=== PATIENT | female | born 1945 | race Caucasian/White ===

== ENCOUNTER 2021-05-17 01:52 | Emergency (ER) | payer MEDICARE, SELFPAY ==
--- NOTE | ~2021-05-17 | CT_ITS ---
EXAMINATION: NONCONTRAST HEAD CT NONCONTRAST CERVICAL SPINE CT INDICATION INFORMATION: Fall COMPARISON: None TECHNIQUE: Separate noncontrast CT examinations of the head and cervical spine were performed. Coronal and sagittal images were created for each examination at the technologist workstation. This CT examination was performed using dose optimization techniques as appropriate, variously including the following: *Automated exposure control *Adjustment of mA and/or kV according to patient size (this includes techniques or standardized protocols for targeted exams where dose is matched to indication/reason for exam; i.e. extremities or head) *Use of iterative reconstruction technique DLP: 1164 mGy-cm FINDINGS: Head: There is no evidence of acute intracranial hemorrhage or territorial infarction. No abnormal mass effect or midline shift is seen. Fallon to white matter differentiation is well preserved. No extra-axial fluid collections are identified. No hydrocephalus. Proportional prominence of the ventricles and sulcal spaces is consistent with mild volume loss. Patchy periventricular and deep white matter hypoattenuation is consistent with mild small vessel ischemic changes. Small left frontal subgaleal hematoma. No calvarial fracture. The mastoid air cells and visualized portions of the paranasal sinuses are well aerated. Cervical spine: There is a fracture involving the left anterior arch of C2 extending through the vertebral foramen. No significant displacement. Fracture involves the articulation with C1. There is anatomic alignment of the vertebral bodies and posterior elements. The atlantoaxial and atlantooccipital articulations are intact. Vertebral body heights are maintained. There is multilevel intervertebral disc space narrowing with endplate osteophyte formation and facet arthropathy. Fusion hardware in place posteriorly and anteriorly at C6-C7. No prevertebral soft tissue swelling. Visualized portions of the lung apices are unremarkable. The thyroid gland is unremarkable. CT/CT cervical spine wo con IMPRESSION: 1. No acute intracranial finding. 2. Nondisplaced fracture of the left aspect of C2 vertebral body extending to the vertebral foramen and involving the articulation with C1. This critical result was discussed with Melany Galvan MD by telephone at 05/17/2021 3:22 AM and it was ascertained that the content and urgency of the report was understood at the time of direct communication.
[2021-05-17 02:00] VITALS: BP 149/66; PULSE 68; RESP 16; TEMP 36.6; O2SAT 98; BMI 30.1
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
[2021-05-17] MEDS: Lidocaine HCl 2%/Epi 1:100,000 20 ML VIAL INFILTRATI (03:08)
[2021-05-17 03:09] VITALS: BP 151/70; PULSE 64; RESP 16; O2SAT 97
[2021-05-17] MEDS: Diphth,Pertus(ACell),Tet Adult 0.5 ML SYRINGE IM (03:17)
[2021-05-17] MEDS: Ondansetron ODT 4 MG TAB.RAPDIS TRANSLINGU (03:17)
[2021-05-17 03:22] VITALS: BP 169/61; PULSE 69; RESP 16; O2SAT 98
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
[2021-05-17 03:41] VITALS: BP 145/79; PULSE 69; RESP 16; O2SAT 99
[2021-05-17 03:41] LABS: Hematocrit 37.7 % (37.0-47.0); Hemoglobin 12.6 g/dl (12.0-16.0); Mean Corpuscular HGB Conc 33.4 g/dl (31.0-35.0); Mean Corpuscular Hemoglobin 31.4 pg (27.0-33.0); Mean Platelet Volume 10.1 fL (9.4-12.3); Platelet Count 190 X10*3/uL (160-400); Red Blood Count 4.01 X10*6/uL (4.20-5.50); Red Cell Distribution Width 13.1 % (11.0-16.0); White Blood Count 7.4 X10*3/uL (4.8-10.8)
[2021-05-17 03:51] LABS: COVID-19 Test Negative (Negative)
[2021-05-17 03:55] LABS: Anion Gap 10 (12-20); Blood Urea Nitrogen 18 mg/dL (9-16); Calcium 9.8 mg/dL (8.4-10.2); Carbon Dioxide 27 mmol/L (22-29); Chloride 106 mmol/L (96-108); Creatinine Clr Calc Pharmacy 63.2; Estimated Glomerular Filt Rate > 60; Glucose Random 121 mg/dL (60-115); Potassium 4.2 mmol/L (3.3-5.1); Sodium 139 mmol/L (135-145)
--- NOTE | 2021-05-17 04:37 | PC.NURSE ---
attempted to call the [facility] ed line to give a nurse to nurse report and placed on hold for extended lenght of time.
--- NOTE | 2021-05-17 04:51 | PC.NURSE ---
nurse to nurse report given to ginger jefferson at [facility].
[2021-05-17 05:02] VITALS: BP 169/76; PULSE 76; RESP 16; O2SAT 98
== END 2021-05-17 05:25 | disposition short-term general hospital (02) ==
PROVIDERS: Emergency Provider Emergency Medicine; PCP Nurse Practitioner Pediatrics
DX: S12.101A Unspecified nondisplaced fracture of second cervical vertebra, initial encounter for closed fracture (principal); S01.01XA Laceration without foreign body of scalp, initial encounter; S00.83XA Contusion of other part of head, initial encounter; I10 Essential (primary) hypertension; G47.00 Insomnia, unspecified; W06.XXXA Fall from bed, initial encounter; Y93.9 Activity, unspecified; Y92.003 Bedroom of unspecified non-institutional (private) residence as the place of occurrence of the external cause; Y99.9 Unspecified external cause status; Z20.822 Contact with and (suspected) exposure to COVID-19
CPT/HCPCS: 12001; 36415; 70450; 72125; 80048; 85027; 87635; 90471; 90715; 99285; 99291

== ENCOUNTER 2024-01-13 13:12 | Emergency (ER) | payer OTHER, SELFPAY ==
--- NOTE | ~2024-01-13 | XR_ITS ---
EXAMINATION: XR HAND/WRIST, RIGHT CLINICAL INFORMATION: Wrist pain. COMPARISON: None TECHNIQUE: PA, lateral, and oblique views of the right hand and wrist. FINDINGS: There is no acute abnormality. No fracture, there is no dislocation. 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 Diffuse joint narrowing of the carpal bones with chondrocalcinosis of the carpal bones and the radiocarpal joint. There is widening between the scaphoid and lunate with proximal migration of the capitate, SLAC deformity of the wrist. The proximal pole and navicular bone is deformed with a narrow linear appearance of the proximal pole. This is chronic. There is narrowing of the radiocarpal joint. Severe joint narrowing subchondral osteosclerosis and bone spurs of the first metacarpal carpal joint. PIP joints are normal. There is calcifications of the radial margin of the third metacarpal phalangeal joint without bone erosion. The metacarpal carpal joints of the second through fifth digits are normal. XR/XR hand wrist RT IMPRESSION: 1. No acute abnormality. 2. Severe degenerative arthrosis of the wrist. 3. Chondrocalcinosis of the carpal bones and the radiocarpal joint and the third metacarpal phalangeal joint. 4. SLAC deformity of the wrist.
--- NOTE | ~2024-01-13 | CT_ITS ---
EXAMINATION: CT HEAD WITHOUT CONTRAST CT CERVICAL SPINE WITHOUT CONTRAST CLINICAL INFORMATION: Headache. Neck pain. COMPARISON: CT head and CT cervical spine May 17, 2021. TECHNIQUE: Imaging was performed from the skull base to vertex without intravenous administration of contrast. In addition, helical noncontrast CT imaging was acquired through the cervical spine and source images were reviewed along with axial reconstructions and sagittal and coronal MPRs. [This CT examination was performed using dose optimization techniques as appropriate, variously including the following: *Automated exposure control *Adjustment of mA and/or kV according to patient size (this includes techniques or standardized protocols for targeted exams where dose is matched to indication/reason for exam; i.e. extremities or head) *Use of iterative reconstruction technique] DLP: 1180 mGy-cm FINDINGS: HEAD: No intracranial mass, hemorrhage, or midline shift is visualized. There is generalized global volume loss. There is moderate prominence of the ventricles and the sulci . There is mild hypodensity of the periventricular white matter due to chronic small vessel ischemic disease. There are vascular calcifications of the internal carotid arteries bilaterally. No extra-axial collections are identified. The paranasal sinuses and mastoid air cells are well aerated. CERVICAL SPINE: Status post fusion with transpedicular screws as well as the anterior fusion hardware at the C6-C7 disc level. There is no evidence of acute cervical spine fracture. Vertebral bodies remain normal in height. Cervical vertebrae have normal alignment. There is multilevel degenerative spondylosis of the cervical spine with disc height narrowing and endplate spurs and facet joint arthrosis No pre- or paravertebral soft tissue abnormality is identified. Limited assessment of the lung apices is unremarkable. CT/CT cervical spine wo IV con IMPRESSION: 1. No acute intracranial pathology. 2. No CT evidence of acute cervical spine fracture or traumatic subluxation
--- NOTE | ~2024-01-13 | XR_ITS ---
EXAMINATION: XR HAND/WRIST, LEFT CLINICAL INFORMATION: Left wrist pain. COMPARISON: None TECHNIQUE: Four views of the left hand and wrist. FINDINGS: There is no acute abnormality. No fracture, there is no dislocation. 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 Diffuse joint narrowing of the carpal bones with chondrocalcinosis of the carpal bones and the radiocarpal joint. There is narrowing of the radiocarpal joint. Severe joint narrowing subchondral sclerosis and bone spurs of the first metacarpal carpal joint. The IP joint of the thumb is held in extreme extension. The IP joints are otherwise normal. Metacarpal phalangeal joints are normal. Metacarpal carpal joints of the second through fifth digits are normal. XR/XR hand wrist LT IMPRESSION: 1. No acute abnormality. 2. 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
--- NOTE | ~2024-01-13 | CT_ITS ---
EXAMINATION: CT CHEST, ABDOMEN AND PELVIS withCONTRAST CLINICAL INFORMATION: Trauma. Chest pain Abdomen pain. COMPARISON: None. TECHNIQUE: Multidetector volumetric CT imaging of the chest, abdomen and pelvis was obtained . Coronal, Sagittal reformatted images preformed at the CT scanner. [This CT examination was performed using dose optimization techniques as appropriate, variously including the following: *Automated exposure control *Adjustment of mA and/or kV according to patient size (this includes techniques or standardized protocols for targeted exams where dose is matched to indication/reason for exam; i.e. extremities or head) *Use of iterative reconstruction technique] DLP: 1102 mGy-cm. FINDINGS: CT CHEST: Lungs: Diffuse mild subpleural reticular changes involving all lobes of the lung. Mild bronchiectasis at the lung bases. No acute airspace disease. No suspicious lung nodule. Small intra-pleural lymph node at the minor fissure. Mediastinum: No mass or significant lymphadenopathy. Heart size is normal. No pericardial effusion. There are vascular calcifications of the aorta. No aneurysm of aorta. Coronary arteries: Small volume of coronary calcification. Pleura: There is no pleural effusion. No pleural mass or thickening. Axilla: No lymphadenopathy. CT ABDOMEN AND PELVIS: Liver, Gallbladder and Biliary Tree: The liver is normal in size, shape, and attenuation. No focal hepatic lesion or biliary ductal dilatation is present. The gallbladder is unremarkable with no evidence of radiopaque gallstones, gallbladder wall thickening, or obvious pericholecystic inflammatory changes. Pancreas: No acute change of the pancreas. No mass. No pancreatic duct dilatation. Spleen: Spleen normal in size and contour. No focal lesion. Adrenal Glands: Adrenal glands are normal in size. No focal mass. Kidneys and Ureters: The kidneys are normal in size, shape, and attenuation. No hydronephrosis, hydroureter, or calculi seen. No perinephric stranding. Bladder: Unremarkable. Gastrointestinal Tract: There are scattered diverticula of the colon. There is no diverticulitis. There is no bowel wall thickening /edema. There is no bowel obstruction. There is a moderate volume of stool in the colon. The appendix is normal . The small bowel loops are unremarkable. The stomach is normal. There is no hiatal hernia. Mesentery: No focal inflammation. No free fluid. No free air. Abdominal Wall: No significant hernia is appreciated. Lymph Nodes: Normal. Vascular: Vascular calcifications of aorta and iliac arteries. There is no aneurysm. Pelvic Viscera: Status post hysterectomy. Osseous Structures: No acute osseous abnormality. Multilevel degenerative spondylosis spine. Grade 1 anterolisthesis of L4 and L5 due to facet joint disease. Orthopedic hardware at lower cervical spine, anterior fusion at C6-C7 partially imaged. CT/CT abdomen pelvis w IV con IMPRESSION: 1. No acute abnormality the chest, abdomen or pelvis. 2. Mild interstitial lung disease. 3. Diverticulosis of colon. No acute abnormality of the bowel. 4. Status post hysterectomy.
[2024-01-13 13:30] VITALS: BP 150/84; BP 180/97; PULSE 61; PULSE 88; RESP 18; TEMP 36.7; O2SAT 96; BMI 28.3
[2024-01-13 13:37] VITALS: BP 180/97; PULSE 88; RESP 18; TEMP 36.7; O2SAT 96
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
[2024-01-13] MEDS: iohexoL 350 MG/ML 75 ML INFUS..BTL 85 ML IV (14:19)
[2024-01-13 15:12] VITALS: BP 180/97; PULSE 88; RESP 18; TEMP 36.7; O2SAT 96
[2024-01-13] MEDS: Diphth,Pertus(ACell),Tet Adult 0.5 ML SYRINGE IM (15:14)
[2024-01-13] MEDS: fentaNYL citrate/PF 100 MCG/2 ML VIAL 50 MCG IVPUSH (15:14)
[2024-01-13 16:11] LABS: MANUAL DIFF FLAG NO
[2024-01-13 16:14] LABS: Basophils Absolute Auto 0.1 X10*3/uL (0.0-0.2); Basophils Percent Auto 0.5 % (0-2); Eosinophils Absolute Auto 0.1 X10*3/uL (0.0-0.4); Eosinophils Percent Auto 0.7 % (0-4); Hematocrit 42.3 % (37.0-47.0); Hemoglobin 14.2 g/dl (12.0-16.0); Imm Gran Abs Auto 0.09 X10*3/uL (0.00-0.03); Imm Gran Pct Auto 0.6 % (0.0-0.4); Lymphocytes Absolute Auto 1.7 X10*3/uL (1.2-4.9); Lymphocytes Percent Auto 10.6 % (20-40); Mean Corpuscular HGB Conc 33.6 g/dl (31.0-35.0); Mean Corpuscular Hemoglobin 31.8 pg (27.0-33.0); Mean Corpuscular Volume 94.6 fL (80.0-98.0); Mean Platelet Volume 9.9 fL (9.4-12.3); Neutrophils Absolute Auto 13.3 x10*3/uL (2.0-8.3); Neutrophils Percent Auto 81.6 % (45-73); Platelet Count 206 X10*3/uL (160-400); Red Blood Count 4.47 X10*6/uL (4.20-5.50); Red Cell Distribution Width 12.9 % (11.0-16.0); White Blood Count 16.3 X10*3/uL (4.8-10.8)
[2024-01-13 16:20] LABS: Prothrombin Time 11.6 SEC (11.1-13.3)
[2024-01-13 16:35] LABS: Alanine Aminotransferase 18 U/L (0-31); Albumin Level 4.1 g/dL (3.5-5.0); Alkaline Phosphatase 53 U/L (39-117); Anion Gap 13 (12-20); Aspartate Amino Transferase 21 U/L (5-31); Bilirubin Total 1.1 mg/dL (0.0-1.0); Blood Urea Nitrogen 13 mg/dL (9-16); Calcium 10.7 mg/dL (8.4-10.2); Carbon Dioxide 24 mmol/L (22-29); Chloride 106 mmol/L (96-108); Creatinine Clr Calc Pharmacy 60.1; Estimated Glomerular Filt Rate > 60; Glucose Random 122 mg/dL (60-115); Magnesium 2.1 mg/dL (1.6-2.6); Potassium 3.7 mmol/L (3.3-5.1); Sodium 139 mmol/L (135-145); Total Protein 7.5 g/dL (6.5-8.0)
[2024-01-13 16:44] LABS: Troponin-I High Sensitivity < 2.7 ng/L (<3.5-17.0)
[2024-01-13 17:46] VITALS: BP 127/55; PULSE 89; RESP 18; O2SAT 94
[2024-01-13 17:58] VITALS: BP 127/55; PULSE 89; RESP 18; TEMP 36.7; O2SAT 94
== END 2024-01-13 17:59 | disposition home or self-care (01) ==
PROVIDERS: Physician Assistant; Emergency Provider Emergency Medicine; PCP Internal Medicine
DX: S06.0X0A Concussion without loss of consciousness, initial encounter (principal); S60.211A Contusion of right wrist, initial encounter; S13.4XXA Sprain of ligaments of cervical spine, initial encounter; S60.811A Abrasion of right wrist, initial encounter; S20.219A Contusion of unspecified front wall of thorax, initial encounter; M25.531 Pain in right wrist; K57.30 Diverticulosis of large intestine without perforation or abscess without bleeding; H11.31 Conjunctival hemorrhage, right eye; R51.9 Headache, unspecified; M54.2 Cervicalgia; R94.31 Abnormal electrocardiogram [ECG] [EKG]; V44.5XXA Car driver injured in collision with heavy transport vehicle or bus in traffic accident, initial encounter; Y93.9 Activity, unspecified; Y92.410 Unspecified street and highway as the place of occurrence of the external cause; Y99.8 Other external cause status; Z79.899 Other long term (current) drug therapy; Z23 Encounter for immunization
CPT/HCPCS: 29125; 36415; 70450; 71260; 72125; 73110; 73130; 74177; 80053; 83735; 84484; 85025; 85610; 90471; 90715; 93005; 96374; 99284; 99285; J3010; Q9967

== ENCOUNTER → 2024-01-13 13:54 | Outpatient (BNV) | payer MEDICARE, SELFPAY | PROVIDERS: Emergency Provider Emergency Medicine; PCP Internal Medicine; Visit Provider Internal Medicine Cardiovascular Disease | DX: R94.31 Abnormal electrocardiogram [ECG] [EKG] (principal) | CPT/HCPCS: 93010 ==

== ENCOUNTER 2024-08-21 16:14 | Emergency (ER) | payer MEDICARE, SELFPAY ==
--- NOTE | ~2024-08-21 | CT_ITS ---
CLINICAL HISTORY: trauma CT head without contrast Comparison: CT/SR - CT HEAD/BRAIN WO IV CON - 01/13/24 14:00 EDT Findings: Moderate cerebral atrophy and compensatory ventriculomegaly. No intracranial hemorrhage, midline shift or mass effect. There is no sinus or mastoid fluid. The orbits are unremarkable. Posterior right vertex scalp swelling. There is no acute fracture. Degenerative changes of the temporomandibular joints. IMPRESSION: 1. No acute intracranial findings. This document has been electronically signed by: Terell Zavala MD on 08/21/2024 18:31:11
--- NOTE | ~2024-08-21 | CT_ITS ---
CLINICAL HISTORY: trauma CT cervical spine without contrast Comparison: CT/TX/SR - CT CERVICAL SPINE WO IV CON - 01/13/24 14:00 EDT Findings: Vertebral alignment is within normal limits. Multilevel degenerative change of the cervical spine. No acute fracture deformity of the cervical spine. There has been a posterior fusion with transpedicular screws at C6-7. Note, both of the bilateral C7 transpedicular screws traverses the facets and protrudes into the C7-T1 neural foramina. There has been an anterior interbody fusion at C6-7 as well. No evidence of hardware failure or loosening. There has been previous laminectomies at C5 and C6. No acute findings on limited view of the intracranial contents. Soft tissues of the neck are normal. No apical pneumothorax. IMPRESSION: No acute findings. This document has been electronically signed by: Terell Zavala MD on 08/21/2024 18:46:32
--- NOTE | ~2024-08-21 | CT_ITS ---
CLINICAL HISTORY: trauma CT lumbar spine without contrast Comparison: None Findings: There is 3 mm of retrolisthesis of L1 on L2 and 2 mm of retrolisthesis of L2 on L3. There is 7 mm of anterolisthesis of L4 on L5. Findings are thought to be secondary to significant degenerative change. Multilevel degenerative changes of the lumbar spine. No acute fracture deformity. Wall calcifications of the aorta. IMPRESSION: No acute findings. This document has been electronically signed by: Terell Zavala MD on 08/21/2024 18:51:09
--- NOTE | 2024-08-21 16:26 | ED.FALL ---
HPI - Fall General Chief Complaint: Fall Stated Complaint: FALL +HS, HEMATOMA PER EMS Time Seen by Provider: 08/21/24 16:26 Source: patient Limitations: no limitations History of Present Illness ED Provider: Rosa Roper PA-C HPI Narrative: 79-year-old female with a history of depression, hypertension and morbid obesity, presents after fall. Patient states she was walking to get her mail, there was ice around her mailbox, she subsequently slipped and fell backwards landing on her back striking her head. There was no loss consciousness, the patient was not on a blood thinner. The patient was not able to get up off the ground, EMS was called to the scene. Patient complains of pain over a bump over posterior scalp, diffuse neck pain and left lower back pain since the fall. Denies weakness of lower extremities, paresthesia, radiation pain down the leg, bowel incontinence or urinary retention. Denies headache, dizziness, nausea vomiting. Denies radiation of pain from the neck to the upper extremities, weakness of upper extremities or paresthesia. Related Data Previous Rx's ?Medication ?Instructions ?Recorded methocarbamol 750 mg tablet 750 mg PO Q8H PRN pain, moderate 08/21/24 #10 tabs Allergies Allergy/AdvReac Type Severity Reaction Status Date / Time codeine [CODEINE] Allergy Unknown UNKNOWN Verified 08/21/24 16:38 diphenhydramine Allergy Unknown NAUSEA Verified 08/21/24 16:38 [From BENADRYL] Review of Systems Review of Systems: Yes all other systems are reviewed and are negative Constitutional: Constitutional: Denies fatigue, Denies fever(s) and Denies headache(s) ENT: Denies dizziness, Denies headache(s) and Reports neck pain Cardiovascular: Cardiovascular: Denies chest pain and Denies dyspnea Respiratory: Respiratory: Denies cough and Denies dyspnea Gastrointestinal: Gastrointestinal: Denies abdominal pain, Denies nausea and Denies vomiting Musculoskeletal: Musculoskeletal: Reports back pain, Reports myalgias, Reports arthralgias, Denies muscle weakness, Reports neck pain, Denies numbness and Denies tingling Neurologic: Denies dizziness, Denies headache(s), Denies numbness, Denies tingling and Denies paresthesias Endocrine: Endocrine: Denies fatigue PMFSH Past Medical History Attestation statement: The following information was validated with the patient. Medical History (Updated 08/21/24 @ 17:15 by TARUN Hi) Insomnia Depression Hypertension Surgical History (Updated 05/17/21 @ 04:19 by Sarahi Galvan DO) History of carpal tunnel surgery H/O neck surgery Social History Social History (Updated 05/17/21 @ 02:59 by Sarahi Galvan DO) Patient Tobacco Use Status: Never used Tobacco Smoked in Last 30 Days: No Use of substances other than those prescribed or required for medical reasons: No Advance Directives: No Advance Directives Information Provided: Yes Do you have a plan to hurt others: No Plan Physical Exam Vital Signs: Vital Signs: Last Vital Signs Temp 98.1 F 08/21/24 16:37 Pulse 66 08/21/24 16:37 Resp 20 08/21/24 16:37 BP 131/63 08/21/24 16:37 Pulse Ox 97 08/21/24 16:37 O2 Del Method Room Air 08/21/24 16:37 BMI result Body Mass Index 29.4 Const: Other: Alert, I can palpate a large contusion right posterior parietal region Orientation/consciousness: patient oriented x3 Neck: Other: Diffuse tenderness with palpation of entire neck, no focal regions, full range of motion of the neck Resp: Effort & Inspection: normal respiratory effort Cardio: Other: Normal peripheral perfusion Skin: Other: Warm dry no rash Neuro: Other: Antalgic gait General: patient oriented x3, gait normal, no focal motor deficits and CN's II-XI intact bilaterally Psych: Other: Cooperative Medications Administered Discontinued Medications Generic Name Dose Route Start Last Admin Trade Name Freq PRN Reason Stop Dose Admin Ibuprofen 600 mg 08/21/24 16:33 08/21/24 17:38 Ibuprofen 600 Mg Tablet PO 08/21/24 16:34 600 mg ONCE ONE Administration Methocarbamol 750 mg 08/21/24 16:33 08/21/24 17:38 Methocarbamol 750 Mg Tablet PO 08/21/24 16:34 750 mg ONCE ONE Administration Medical Decision Making Medical Decision Making MDM Narrative: 79-year-old female with a history of depression, hypertension and morbid obesity, presents after fall. Patient states she was walking to get her mail, there was ice around her mailbox, she subsequently slipped and fell backwards landing on her back striking her head. There was no loss consciousness, the patient was not on a blood thinner. The patient was not able to get up off the ground, EMS was called to the scene. Patient complains of pain over a bump over posterior scalp, diffuse neck pain and left lower back pain since the fall. Denies weakness of lower extremities, paresthesia, radiation pain down the leg, bowel incontinence or urinary retention. Denies headache, dizziness, nausea vomiting. Denies radiation of pain from the neck to the upper extremities, weakness of upper extremities or paresthesia. Problem: Age and obesity History: Per patient I have considered the following differential diagnoses: Intracranial hemorrhage, cervical spine injury, cervical radiculopathy, contusion, concussion, lumbar strain, lumbar radiculopathy, compression fracture, cauda equina Plan: We will be scanning the patient's head and neck and back. I have low suspicion for intracranial hemorrhage given the patient is not altered she has no neuro deficits she is not actively vomiting. Her pain is not focal to midline cervical spine, it is diffuse over the neck, it is likely musculoskeletal strain. She is not having any radicular symptoms either in the cervical or lumbar region. This is likely just lumbar strain, she has no red flag signs symptoms concerning for cord compression. We will give ibuprofen and a muscle relaxant I have independently reviewed the following tests: CT brain: MPRESSION: 1. No acute intracranial findings. This document has been electronically signed by: Terell Zavala MD on 08/21/2024 18:31:11 CT cervical spine: IMPRESSION: No acute findings. This document has been electronically signed by: Terell Zavala MD on 08/21/2024 18:46:32 CT lumbar spine:IMPRESSION: No acute findings. This document has been electronically signed by: Terell Zavala MD on 08/21/2024 18:51:09 Discharge Plan Discharge Clinical Impression: Contusion of scalp, Lumbar strain Patient Disposition: Home, Self-Care Instructions: Low Back Strain (ED), Scalp Contusion in Adults (ED) Additional Instructions: The CT scan of your brain cervical spine and lumbar spine were normal. You sustained a scalp contusion, this is a fancy word for bruise. You also have musculoskeletal strain of the back and neck. See home care instructions. Use [id number] ibuprofen 600 mg taken every 6 hours with food. Use the methocarbamol as needed for further pain, this is a muscle relaxant, to note this medication will cause drowsiness, do not drive or operate machinery while taking the medication. Follow up with your primary care provider as needed. Prescriptions: New methocarbamol 750 mg tablet 750 mg PO Q8H PRN (Reason: pain, moderate) Qty: 10 0RF Print Language: Ecuadorean
[2024-08-21 16:37] VITALS: BP 131/63; BP 171/88; PULSE 18; PULSE 66; RESP 20; TEMP 36.7; O2SAT 97; O2SAT 98; BMI 29.4
--- OUTSIDE RECORDS SUMMARY | 2024-08-21 16:49 | XMS_ITS | Clinical Summary ---
Author Organization [facility] Address [address] [place] [address] Care Team Providers Care Skiver Counter Name Role Phone Mignon Lowery MD Primary Care Provider [phone] Social History Tobacco Use Types Packs/Day Years Used Date Smoking Tobacco: Never Assessed Sex and Gender Information Value Date Recorded Sex Assigned at Not on file Gender Identity Not on file Sexual Orientation Not on file Plan of Treatment Health Maintenance Due Date Last Done Comments Hepatitis C Screening 1945 COVID-19 Vaccine (#1) 1945 Depression Screening 1959 Preventative Health Evaluation 1965 Shingrix-Zoster Vaccine (1 of 2) 1997 Fall Risk Assessment 2012 Osteoporosis Screening (DEXA Scan) 2012 DTap / Tdap / Td (2 - Td or Tdap) 04/14/2022 04/14/2012 RSV Adult > 60+ Yrs or (1 - 1-dose 75+ series) 2022 Influenza Vaccine (#1) 2024 8, 04/23/2017, 04/20/2015, Additional history exists Pneumococcal Vaccine Completed 03/03/2020, 04/25/20 18 Hepatitis B Vaccines Aged Out No long er eligible based on patient's age to complete this topic RSV Ped < 20 months Aged Out No longe r eligible based on patient's age to complete this topic Care Teams Skiver Counter Relationship Specialty Start Date End Date Mignon Lowery MD PCP - General Internal Medicine 08/25/19
--- OUTSIDE RECORDS SUMMARY | 2024-08-21 16:49 | XMS_ITS | Clinical Summary ---
Author Organization [facility] Address [address] [place] [address] Phone Care Team Providers Care Territory Account Manager Name Role Phone Tamra Jerry MD Primary Care Provider [phone] Allergies Active Allergy Reactions Criticality Noted Date Comments Anastrozole 10/29/2008 Counteracting antidepressants Hair loss Anti-Itch Itching 08/05/2005 Codeine 08/05/2005 GI upset Prednisone 08/05/2005 vitreous leaking Zolpidem 04/20/2015 nausea Medications cholecalciferol (VITAMIN D-3) 50 mcg (2,000 unit) capsule TAKE 1 CAPSULE BY MOUTH EVERY DAY 90 capsule 1 06/15/2024 Active mirtazapine (REMERON) 7.5 mg tablet TAKE 1 TABLET BY MOUTH EVERY DAY AT BEDTIME FOR 90 DAYS 03/13/2024 Active donepeziL (ARICEPT) 5 mg tablet TAKE 1 TABLET BY MOUTH EVERY DAY AT BEDTIME FOR 90 DAYS 03/13/2024 Active lisinopriL (PRINIVIL,ZESTR IL) 20 mg tablet Take 1 Tablet by mouth daily. 03/16/2024 Active furosemide (LASIX) 20 mg tablet Take 1 Tablet by mouth daily. 06/24/2023 Active Active Problems Problem Noted Date Diagnosed Date Microalbuminuria 04/10/2024 Hyperparathyroidism 04/07/2024 White matter abnormality on MRI of brain 024 Overview (06/16/2024): Minimal white matter changes, likely a manifestation of chronic small vessel disease. Atrophy of the bilateral temporal lobes, left greater than the right. This could be sequela from prior insult/injury, however, in the appropriate clinical setting, could suggest dementia such as Alzheimer's disease. Memory impairment 06/24/2023 Overview (06/16/2024): Mini cog from annual wellness visit in 2021: 1 out of 5. Mini cog assessment during annual wellness visit in 2022: 2/5. Dementia panel ordered. MRI of the brain ordered. Prediabetes 05/23/2022 Arthritis of left sacroiliac joint 11/22/2021 Lumbosacral strain 11/22/2021 Obesity (BMI 30-39.9) 08/11/2020 Cervical spinal stenosis 08/13/2019 Overview (06/16/2024): S/p MRI 08/2019 With cord compression. 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 Depression 08/13/2019 Overview (06/16/2024): Meds prescribed by psychiatry Multiple thyroid nodules 08/13/2019 Overview (06/16/2024): Non toxic. S/p thyroid ultrasound 08/2019 stable needs repeat annually. 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 Encounters Date Type Department Care Team Description 08/12/2024 10:30 AM EST Consult Endocrinology - [id number] [place] [address] Chandan Paul MD Hyperparathyroidism (CMS/HCC) (Primary Dx) 08/12/2024 Nurse Triage Adult Medicine [address] [phone] Tamra Jerry MD Toe Pain (Right Foot ); Walk-in from Last 3 Months Immunizations Name Administration Dates Next Due Influenza trivalent, 0.5mL ( Fluad) 65yo and older 04/02/2024,06/12/2021,04/09/2019,04/15,04/23/2017 Influenza trivalent, 0.5mL, preservative free (Fluarix; FluLaval; Fluzone) ages 6mo and older (Afluria) 3 years and older 04/20/2015,04/11/2012,04/03/2011,05/10,04/07/2009,04/27/2008 Pneumococcal conjugate 13 va lent (Prevnar 13, PCV13) 2mo and older 04/25/2018 Pneumococcal polysaccharide 23 valent (Pneumovax 23) 2yo and older 03/03/2020 Td Tetanus diptheria (Tdvax) 7yo and older 01/28/2002 Tdap Tetanus diptheria acell ular pertussis (Boostrix; Adacel) 7yo and older 01/13/2024,05/17/2021,04/14/2012 Surgical History Surgery Date Site/Laterality Comments HYSTERECTOMY 1993 FRANCISCA BSO, endometriosis and fibroids CHOLECYSTECTOMY COLONOSCOPY 09/13/08 hemorrhoids and diverticulosis; repeat in ten years TOTAL KNEE ARTHROPLASTY Bilateral NECK SURGERY BREAST BIOPSY : 2012 LT BREAST BX-BENIGN BREAST BIOPSY : 2007-DCIS SCREENING MAMMOGRAM 09/26/2023 Bilateral Medical History Medical History Date Comments Hematuria 08/05/2005 Primary localized osteoarthr osis, lower leg 08/05/2005 Essential hypertension, benign 08/05/2005 Insomnia 10/29/2008 CTS (carpal tunnel syndrome) 07/28/2009 Hypercalcemia 04/25/2018 Vitamin D deficiency 10/20/2018 Cervical spinal stenosis 08/13/2019 S/p MRI 08/2019 With cord compression. 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 Depression 08/13/2019 Meds prescribed by psychiatry Hyperparathyroidism ([facility]/HCC) 04/07/2024 Memory impairment 06/24/2023 Mini cog from annual wellness visit in 2021: 1 out of 5. Mini cog assessment during annual wellness visit in 2022: 08/12. Dementia panel ordered. MRI of the brain ordered. Multiple thyroid nodules 08/13/2019 Non tox ic. S/p thyroid ultrasound 08/2019 stable needs repeat annually. 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 Family History Medical History Relation Name Comments Breast cancer Neg Hx Social History Tobacco Use Types Packs/Day Years Used Date Smoking Tobacco: Never Smokeless Tobacco: Never Tobacco Cessation:Counseling Given: Not Answered Alcohol Use Standard Drinks/Week Comments No 0 (1 standard drink = 0.6 oz pur e alcohol) Comments Unknown Sex and Gender Information Value Date Recorded Sex Assigned at Not on file Legal Sex Female 7:53 AM EST Gender Identity Not on file Sexual Orientation Not on file Obstetrics History Last Filed Vital Signs Vital Sign Reading Time Taken Comments Blood Pressure 126/84 08/12/2024 10:20 AM EST Pulse 71 08/12/2024 10:20 AM EST Temperature 36.1 ??C (97 ??F) 08/12/2024 10:20 AM EST Respiratory Rate - - Oxygen Saturation 99% 08/12/2024 10:20 AM EST Inhaled Oxygen Concentration - - Weight 81.2 kg (179 lb) 08/12/2024 10:20 AM EST Height 160 cm (5' 3 ) 08/12/2024 10:20 AM EST Body Mass Index 31.71 08/12/2024 10:20 AM EST Plan of Treatment Upcoming Encounters Date Type Department Care Team (Late st Contact Info) Description 08/24/2024 10:30 AM EST Office Visit [facility] Medicine [address] [phone] Tamra Jerry MD [address] [place] [address] 09/30/2024 12:45 PM EDT Office Visit [address] [phone] Tamra Jerry MD [address] [place] [address] 11/13/2024 10:00 AM EDT Appointment Bone Density - Samara Morel [facility] [place] [phone] 11/18/2024 11:20 AM EDT Office Visit Endocrinology - Saamra Morel [place], [place] [phone] Indu Delcid PA [address] [place], [place] Health Maintenance Due Date Last Done Comments Zoster Vaccines (1 of 2) 1997 Depression Screening 06/10/2022 Falls Risk Assessment 06/10/2022 Medicare Annual Wellness Visit 06/10/2022 Social Influencers of Health Screening 06/10/2022 RSV Immunization Patients 60+ Years Old (1 - 1-dose 75+ series) 2022 COVID-19 Vaccine ( - season) 2024 06/12/2021, 10/07/2020, 09/16/2020 Hypertension/CHF/CAD Annual BMP Blood Test 04/06/2025 04/06/2024, 04/06/2024 Osteoporosis Screening (Bone Density Screening) 12/16/2028 12/16/2018 Cholesterol Screening (Lipid Panel) 04/06/2029 04/06/2024, 04/06/2024 DTaP,Tdap,and Td Vaccines (5 - Td or Tdap) 01/12/2034 01/13/2024, 05/17/2021, 04/14/2012, Additional history exists Hepatitis C Screening Completed 04/15/2013 Pneumococcal Vaccine: 50+ Years Completed 03/03/2020, 04/25/2018 Breast Cancer Screening Discontinued 09/26/19 24, 02/09/2021, 02/03/2020, Additional history exists Influenza Vaccine Completed 04/02/2024, , 04/09/2019, Additional history exists HIB Vaccines Aged Out No longer eligi ble based on patient's age to complete this topic HPV Vaccines Aged Out No longer eligi ble based on patient's age to complete this topic Hepatitis A Vaccines Aged Out No long er eligible based on patient's age to complete this topic Hepatitis B Vaccines Aged Out No long er eligible based on patient's age to complete this topic IPV Vaccines Aged Out No longer eligi ble based on patient's age to complete this topic MMR Vaccines Aged Out No longer eligi ble based on patient's age to complete this topic Meningococcal ACWY Vaccine Aged Out N o longer eligible based on patient's age to complete this topic Meningococcal B Vacine Aged Out No lo nger eligible based on patient's age to complete this topic RSV Immunization Patients Under 20 months Aged Out No longer eligible based on patient's age to complete this topic Varicella Vaccines Aged Out No longer eligible based on patient's age to complete this topic Procedures Procedure Name Priority Date/Time Associated Diagnosis Comments ANNUAL BMP BLOOD TEST Routine 04/06/2024 LIPID PANEL Routine 04/06/2024 SCREENING MAMMOGRAPHY BI 2-VIEW BREAST INC CAD Routine 09/26/2023 10:34 AM EDT Encounter for screening mammogram for malignant neoplasm of breast DXA BONE DENSITY STUDY 1+ SITS AXIAL SKEL Routine 12/16/2018 11:30 AM EDT Asymptomatic menopausal state HEPATITIS C SCREENING Routine 04/15/2013 from Last 3 Months or Most Recently Relevant to Health Maintenance Results * Annual BMP Blood Test (04/06/2024) Annual BMP Blood Test abstracted Historical Provider HEALTH MAINTENANCE Final Result * (ABNORMAL) Lipid panel (04/06/2024) LDL/HDL Ratio 3 0 - 4 Triglycerides 138 0 - 150 mg/dL Cholesterol 206(A) 0 - 200 mg/dL HDL 76 >=40 mg/dL LDL Cholesterol 103(A) 0 - 100 mg/dL Blood Venous blood specimen / Unknown Historical Provider LAB BLOOD ORDERABLES Libby l Result * SCREENING MAMMOGRAPHY BI 2-VIEW BREAST INC CAD (09/26/2023 10:34 AM EDT) Anatomical Region Laterality Modality Radiographic Shazia ging 03/15/2023 6:08 PM EDT Narrative 09/26/2023 5:49 PM EDT This is a summary report. The complete report is available in the patient's medical record. If you cannot access the medical record, please contact the sending organization for a detailed fax or copy. History: Personal history of lumpectomy for left breast cancer in December 2007 Study: SCREENING MAMMOGRAPHY BI 2-VIEW BREAST INC CAD Technique: Bilateral full-field digital screening mammography is obtained and read in conjunction with computer aided detection. ??Tomosynthesis as well as 2D C-View imaging were obtained. Comparison: Comparison made to multiple prior, most recent February 09, 2021, and most remote November 05, 2013. Breast composition: There are scattered areas of fibroglandular density. Right breast: 2 tissue markers from previous needle core biopsy. ??No suspicious masses, suspicious calcifications or other abnormalities are seen. Left breast: Postlumpectomy changes. ??Tissue marker from previous needle core biopsy. IMPRESSION: Impression: Bilateral breasts: Benign, no specific mammographic evidence of malignancy. ??Normal interval follow-up is recommended in 12 months. BI-RADS: Category 2: Benign Procedure Note Lonnie Bonner MD - 02/24/2024 This is a summary report. The complete report is available in thepatient's medical record. If you cannot access the medical record, pleasecontact the sending organization for a detailed fax or copy. History: Personal history of lumpectomy for left breast cancer in December2007 Study: SCREENING MAMMOGRAPHY BI 2-VIEW BREAST INC CAD Technique: Bilateral full-field digital screening mammography is obtainedand read in conjunction with computer aided detection. Tomosynthesis aswell as 2D C-View imaging were obtained. Comparison: Comparison made to multiple prior, most recent February 09, 2021,and most remote November 05, 2013. Breast composition: There are scattered areas of fibroglandular density. Right breast: 2 tissue markers from previous needle core biopsy. Nosuspicious masses, suspicious calcifications or other abnormalities areseen. Left breast: Postlumpectomy changes. Tissue marker from previous needlecore biopsy. IMPRESSION: Impression: Bilateral breasts: Benign, no specific mammographic evidence ofmalignancy. Normal interval follow-up is recommended in 12 months. BI-RADS: Category 2: Benign Michelle MCNEIL IMG XR PROCEDURES Final Resul t * DXA BONE DENSITY STUDY 1+ SITS AXIAL SKEL (12/16/2018 11:30 AM EDT) Anatomical Region Laterality Modality Bone Densitometr y 10/17/2018 10:1 8 AM EDT Narrative 12/16/2018 4:55 PM EDT BONE DENSITY (DEXA) ? Lumbar Spine T-score is 2.2. ?? (SD relative to 20-29 y/o adult) Z-score is 4.4. ??(SD relative to age matched peers) This is considered normal by WHO criteria. Left Hip T-score is -0.6. Z-score is 1.3. This is considered normal by WHO criteria. There is mild curvature of the lumbar spine, convexity to the right. Lateral view of the spine shows vertebral heights to be maintained. There is grade 1 spondylolisthesis at L4-5 and also at L5-S1. IMPRESSION: This patient is considered to have normal bone density by WHO criteria. The [facility] Department of Internal Medicine recommends using National Osteoporosis Foundation (NOF) guidelines in treatment decisions related to osteoporosis. NOF guidelines suggest considering treatment for postmenopausal women and men aged 50 or older presenting with the following: History of hip or vertebral fracture. T-score = -2.5 (DXA) at the femoral neck, total hip, or spine, after appropriate evaluation to exclude secondary causes. Low bone mass (T-score between -1.0 and -2.5 at the femoral neck or spine) AND a 10-year probability of a hip fracture = 3% OR a 10-year probability of a major osteoporosis-related fracture = 20% based on the [place]-adapted WHO algorithm Please note that all treatment decisions require clinical judgment and consideration of individual patient factors, including patient preferences, co-morbidities, previous drug use, risk factors not captured in the FRAX model (e.g., frailty, falls, vitamin D deficiency, increased bone turnover, interval significant decline in bone density) and possible under- or over-estimation of fracture risk by FRAX. Optional alternative screening schedule based on chiqui Pierce., [facility] July 26, 2011 for patients with osteopenia (based on hip BMD T-score) is as follows: * ??advanced osteopenia (T scores -2.00 to -2.49), BMD testing every year * ??moderate osteopenia (T scores -1.50 to -1.99), BMD testing every 5 years mild osteopenia or normal BMD (T scores -1.50 and higher), BMD testing every 15 years Procedure Note Yu Bennett - 06/26/2022 BONE DENSITY (DEXA) Lumbar Spine T-score is 2.2. (SD relative to 20-29 y/o adult) Z-score is 4.4. (SD relative to age matched peers) This is considered normal by WHO criteria. Left Hip T-score is -0.6. Z-score is 1.3. This is considered normal by WHO criteria. There is mild curvature of the lumbar spine, convexity to the right. Lateral view of the spine shows vertebral heights to be maintained. Thereis grade 1 spondylolisthesis at L4-5 and also at L5-S1. IMPRESSION: This patient is considered to have normal bone density by WHO criteria. The [facility] Department of Internal Medicine recommendsusing National Osteoporosis Foundation (NOF) guidelines in treatment decisions related toosteoporosis. NOF guidelines suggest considering treatment for postmenopausal women and menaged 50 or older presenting with the following: History of hip or vertebral fracture. T-score = -2.5 (DXA) at the femoral neck, total hip, or spine, afterappropriate evaluation to exclude secondary causes. Low bone mass (T-score between -1.0 and -2.5 at the femoral neck or spine)AND a 10-year probability of a hip fracture = 3% OR a 10-year probability of a majorosteoporosis-related fracture = 20% based on the [place]-adapted WHO algorithm Please note that all treatment decisions require clinical judgment andconsideration of individual patient factors, including patient preferences, co- morbidities,previous drug use, risk factors not captured in the FRAX model (e.g., frailty, falls, vitaminD deficiency, increased bone turnover, interval significant decline in bone density) andpossible under- or over-estimation of fracture risk by FRAX. Optional alternative screening schedule based on melissa Pierce al., NEJMJanuary 2011 for patients with osteopenia (based on hip BMD T-score) is as follows: * advanced osteopenia (T scores -2.00 to -2.49), BMD testing every year * moderate osteopenia (T scores -1.50 to -1.99), BMD testing every 5years mild osteopenia or normal BMD (T scores -1.50 and higher), BMD testingevery 15 years Kb Silvestre MD IMG DXA PROCEDURES Libby l Result * Hepatitis C Screening (04/15/2013) [facility] Hepatitis C Screening abstracted Historical Provider HEALTH MAINTENANCE Final Result from Last 3 Months or Most Recently Relevant to Health Maintenance Insurance [employer] [id number] [place] [address] Care Teams Territory Account Manager Relationship Specialty Start Date End Date Tamra Jerry MD [address] [place] [id number] PCP - General Internal Medicine 04/27/21
--- OUTSIDE RECORDS SUMMARY | 2024-08-21 16:49 | XMS_ITS | Encounter Summary ---
Author Organization [employer] Address [address] [place] [address] Care Team Providers Care Paratransit Driver Name Role Phone Tamra Jerry MD Primary Care Provider [phone] Reason for Referral * Imaging (Routine) - Authorized Specialty Diagnoses / Procedures Referred By Contac t Referred To Contact Radiology Diagnoses Hyperparathyroidism (CMS/HCC) Procedures BD Bone Density DXA Appendicular Skeleton Chandan Paul MD [address] [place] [phone] Phone: tel: fax: [facility] Referral ID Status Reason Start Date Expiration Date V isits Requested Visits Authorized [id number] Authorized 08/12/2024 08/12/2025 1 1 * Imaging (Routine) - Pending Review Specialty Diagnoses / Procedures Referred By Contac t Referred To Contact Radiology Diagnoses Hyperparathyroidism (CMS/HCC) Procedures US Retroperitoneal Complete Chandan Paul MD [address] [place] [address] Phone: tel: fax: [facility] Referral ID Status Reason Start Date Expiration Date V isits Requested Visits Authorized [id number] Pending Review 08/12/2024 08/12/2025 1 1 * Imaging (Routine) - Authorized Specialty Diagnoses / Procedures Referred By Kwadwo aguayo Referred To Contact Radiology Diagnoses Hyperparathyroidism ([facility]/HCC) Procedures BD Bone Density DXA Axial Skeleton Chandan Paul MD [address] [place] [phone] Phone: tel: fax: [facility] Referral ID Status Reason Start Date Expiration Date V isits Requested Visits Authorized [id number] Authorized 08/12/2024 08/12/2025 1 1 Reason for Visit * Reason Comments Thyroid Problem * Consultation (Routine) - Closed Specialty Diagnoses / Procedures Referred By Kwadwo aguayo Referred To Contact Endocrinology Diagnoses Hyperparathyroidism ([facility]/HCC) Tamra Jerry MD [address] [place] [address] Phone: tel: fax: Chandan Paul MD [address] [place] [phone] Phone: tel: fax: Referral ID Status Reason Start Date Expiration Date V isits Requested Visits Authorized [id number] Closed Specialty Services Required 05/08/2024 05/08/2025 1 1 Encounter Details Date Type Department Care Team (Latest Contact Info) Description 08/12/2024 10:30 AM EST Consult Endocrinology - [address] [phone] Chandan Paul MD [address] [place] [phone] Hyperparathyroidism ([facility]/HCC) (Primary Dx) Social History Tobacco Use Types Packs/Day Years [...] on file Sexual Orientation Not on file documented as of this encounter Last Filed Vital Signs Vital Sign Reading [...] Mass Index 31.71 08/12/2024 10:20 AM EST documented in this encounter Progress Notes * Chandan Paul MD - 08/12/2024 10:30 AM EST Schedule labs Schedule DXA scan Schedule US renal. * Chandan Paul MD - 08/12/2024 10:30 AM EST CHIEF COMPLAINT: Thyroid Problem IDENTIFIER: Stefania Hull is a 79 y.o. old female. REFERRING PROVIDER: Tamra Jerry MD HPI: 79 years old F referred for high calcium, she is accompanied by daughter. No complaints, has memory issues and sleeps issues. Labs have noted calcium to be borderline high, highest being 11.5 with albumin at 4.2. PTH is not suppressed at 55. No h/o kidney stones and last DXA scan is in normal range. Pt has hard time understanding, daughter understands translates/repeats on prompting. ROS: As noted in HPI PAST MEDICAL HISTORY: Patient Active Problem List Diagnosis Date Noted Microalbuminuria 04/10/2024 Hyperparathyroidism (CMS/HCC) 04/07/2024 White matter abnormality on MRI of brain 07/10/2023 Memory impairment 06/24/2023 Prediabetes 05/23/2022 Arthritis of left sacroiliac joint (CMS/HCC) 11/22/2021 Lumbosacral strain 11/22/2021 Obesity (BMI 30-39.9) 08/11/2020 Cervical spinal stenosis 08/13/2019 Depression 08/13/2019 Multiple thyroid nodules 08/13/2019 Vitamin D deficiency 10/20/2018 Insomnia 10/29/2008 Hypertension 08/05/2005 Osteoarthritis of left knee 08/05/2005 Past Surgical History: Procedure Laterality Date BREAST BIOPSY PROCEDURE: BX BREAST; PERC NEEDLE CORE W/IMAG GUID; COMMENT: 2012 LT BREAST BX-BENIGN BREAST BIOPSY PROCEDURE: NC BX BREAST W/DEVICE 1ST LESION ULTRASOUND GUID; COMMENT: 2007-DCIS BREAST SURGERY Left 2009 PROCEDURE: NC UNLISTED PROCEDURE BREAST CHOLECYSTECTOMY PROCEDURE: HISTORICAL CHOLECYSTECTOMY COLONOSCOPY 09/13/08 PROCEDURE: HISTORICAL COLONOSCOPY; COMMENT: hemorrhoids and diverticulosis; repeat in ten years HYSTERECTOMY 1992 PROCEDURE: HISTORICAL HYSTERECTOMY; COMMENT: FRANCISCA BSO, endometriosis and fibroids NECK SURGERY PROCEDURE: HISTORICAL NECK SURGERY OTHER SURGICAL HISTORY 01/19 PROCEDURE: MAMMOGRAM TOTAL KNEE ARTHROPLASTY Bilateral PROCEDURE: NC ARTHRP KNE CONDYLE&PLATU MEDIAL&LAT COMPARTMENTS SOCIAL HISTORY: Social History Tobacco Use Smoking status: Never Smokeless tobacco: Never Substance Use Topics Alcohol use: No FAMILY HISTORY: Family History Problem Relation Name Age of Onset Breast cancer Neg Hx Family Status Relation Name Status Neg Hx (Not Specified) No partnership data on file MEDICATIONS DISCONTINUED/REORDERED: There are no discontinued medications. ACTIVE MEDICATIONS: Outpatient Medications Marked as Taking for the 08/12/24 encounter (Consult) with Chandan Paul MD Medication Sig Dispense Refill cholecalciferol (VITAMIN D-3) 50 mcg (2,000 unit) capsule TAKE 1 CAPSULE BY MOUTH EVERY DAY 90 capsule 1 donepeziL (ARICEPT) 5 mg tablet TAKE 1 TABLET BY MOUTH EVERY DAY AT BEDTIME FOR 90 DAYS furosemide (LASIX) 20 mg tablet Take 1 Tablet by mouth daily. lisinopriL (PRINIVIL,ZESTRIL) 20 mg tablet Take 1 Tablet by mouth daily. mirtazapine (REMERON) 7.5 mg tablet TAKE 1 TABLET BY MOUTH EVERY DAY AT BEDTIME FOR 90 DAYS ALLERGIES: Allergies Allergen Reactions Anastrozole Counteracting antidepressants Hair loss Anti-Itch Itching Codeine GI upset Prednisone vitreous leaking Zolpidem nausea PHYSICAL EXAM: Visit Vitals BP 126/84 Pulse 71 Temp 36.1 ??C (97 ??F) (Temporal) Ht 1.6 m (63 ) Wt 81.2 kg (179 lb) SpO2 99% BMI 31.71 kg/m?? Smoking Status Never BSA 1.84 m?? APPEARANCE: Alert and in no acute distress EYES: EOMI HEART: RRR with normal S1 and S2, no murmurs, no gallops, NECK: no adenopathy, thyroid symmetric and of normal size LUNG: clear to auscultation ABDOMEN: soft, non-tender NEURO: Awake, alert LABS: No components found for: CA No results found for: PTH IMPRESSION: 1. Hyperparathyroidism (CMS/HCC) PLAN: Had a detailed discussion, shall get repeat labs also plan to get DXA scan and US renal as well as 24 hr urine calcium. Discussed in detail, not keen about surgery if needed. Shall get the work up and then discuss. She will be scheduled with one of my colleagues as she has trouble understanding me.All questions answered. Medication and lab orders: Orders Placed This Encounter Procedures BD Bone Density DXA Axial Skeleton US Retroperitoneal Complete BD Bone Density DXA Appendicular Skeleton Calcium Creatinine BUN Parathyroid hormone intact Albumin Parathyroid hormone related protein Other orders: AMB REFERRAL TO ENDOCRINOLOGY BD BONE DENSITY DXA AXIAL SKELETON US RETROPERITONEAL COMPLETE BD BONE DENSITY DXA APPENDICULAR SKELETON Chandan Paul MD on 08/12/2024 at 10:57 AM EST documented in this encounter Plan of Treatment Upcoming Encounters Date Type Department Care Team (Late st Contact Info) Description 08/24/2024 10:30 AM EST Office Visit Adult Medicine [address] [phone] Tamra Jerry MD [address] [place] [address] 09/30/2024 12:45 PM EDT Office Visit Adult Medicine [address] [phone] Tamra Jerry MD [address] [place] [address] 11/13/2024 10:00 AM EDT Appointment Bone Density - [address] [phone] 11/18/2024 11:20 AM EDT Office Visit Endocrinology - [place] [address] [place], [place] [phone] Indu Delcid PA [address] [place], [place] Scheduled Orders Name Type Priority Associated Diagnoses Orde r Schedule BD Bone Density DXA Axial Skeleton Imaging Routine Hyperparathyroidism ([facility]) 1 Occurrences starting 08/12/2024 until 08/12/2025 US Retroperitoneal Complete Imaging Routine Hyperparathyroidism ([facility]/HCC) Expected: 08/12/2024, Expires: 08/12/2025 Calcium Lab Routine Hyperparathyroidism ([facility]) 1 Occurrences starting 08/12/2024 until 08/12/2025 Creatinine Lab Routine Hyperparathyroidism ([facility]) 1 Occurrences starting 08/12/2024 until 08/12/2025 BUN Lab Routine Hyperparathyroidism ([facility]) 1 Occurrences starting 08/12/2024 until 08/12/2025 Parathyroid hormone intact Lab Routine Hyperparathyroidism ([facility]) 1 Occurrences starting 08/12/2024 until 08/12/2025 Albumin Lab Routine Hyperparathyroidism ([facility]) 1 Occurrences starting 08/12/2024 until 08/12/2025 Parathyroid hormone related protein Lab Routine Hyperparathyroidism ([facility]) 1 Occurrences starting 08/12/2024 until 08/12/2025 BD Bone Density DXA Appendicular Skeleton Imaging Routine Hyperparathyroidism ([facility]) 1 Occurrences starting 08/12/2024 until 08/12/2025 documented as of this encounter Visit Diagnoses Diagnosis Hyperparathyroidism ([facility])- Primary Hyperparathyroidism, unspecified documented in this encounter Orders Outpatient Referral Count Last Ordered Date Fir st Ordered Date AMB REFERRAL TO ENDOCRINOLOGY 1 08/12/2024 documented in this encounter Care Teams Paratransit Driver Relationship Specialty Start Date End Date Tamra Jerry MD [address] [place], [place] PCP - General Internal Medicine 04/27/21 documented as of this encounter
[2024-08-21] MEDS: methocarbamoL 750 MG TABLET PO (17:38)
[2024-08-21] MEDS: Ibuprofen 600 MG TABLET PO (17:38)
[2024-08-21 19:26] VITALS: BP 123/68; PULSE 65; RESP 18; TEMP 36.6; O2SAT 97
== END 2024-08-21 19:27 | disposition home or self-care (01) ==
PROVIDERS: Emergency Provider Emergency Medicine; PCP Internal Medicine
DX: S00.03XA Contusion of scalp, initial encounter (principal); S39.012A Strain of muscle, fascia and tendon of lower back, initial encounter; M54.2 Cervicalgia; R51.9 Headache, unspecified; W00.0XXA Fall on same level due to ice and snow, initial encounter; Y93.9 Activity, unspecified; Y92.480 Sidewalk as the place of occurrence of the external cause; Y99.8 Other external cause status
CPT/HCPCS: 70450; 72125; 72131; 99284

== ENCOUNTER → 2024-08-21 16:32 | Outpatient (BNV) | payer MEDICARE, SELFPAY | PROVIDERS: Emergency Provider Emergency Medicine; PCP Internal Medicine; Visit Provider Radiology Diagnostic Radiology | DX: S09.90XA Unspecified injury of head, initial encounter (principal); M54.9 Dorsalgia, unspecified | CPT/HCPCS: 70450; 72125; 72131 ==

== ENCOUNTER 2024-09-11 19:03 | Inpatient (IN) | payer MEDICARE, SELFPAY ==
--- NOTE | ~2024-09-11 | CT_ITS ---
CLINICAL HISTORY: trauma CT maxillofacial without contrast Comparison: None Findings: No acute fractures. No dislocations. Temporomandibular joints are in appropriate alignment with degenerative changes. Paranasal sinuses and mastoid air cells clear. There is a left periorbital area of swelling as well as a small left forehead hematoma. Visualized intracranial contents are within normal limits. No foreign bodies. IMPRESSION: 1. No facial bone fracture. 2. Left periorbital soft tissue swelling and left forehead scalp hematoma. This document has been electronically signed by: Terell Zavala MD on 09/11/2024 20:38:16
--- NOTE | ~2024-09-11 | CT_ITS ---
CLINICAL HISTORY: trauma, right rib fxs? CT chest without contrast Comparison: CT/AL/SR - CT CHEST W IV CON - 01/13/24 14:10 EDT Findings: The heart size is normal. The visualized thyroid and mediastinum are unremarkable. The lungs are clear. The visualized upper abdomen is unremarkable. Partially visualized lower cervical anterior cervical discectomy and fusion. There is a inferior endplate compression fracture of T12, new in comparison to January 25, 2024. Fracture appears acute and fracture margins are well visualized. There is mild anterior height loss. No retropulsion of the vertebral body posterior wall. No fracture deformity of the ribs, shoulder girdle or sternum. IMPRESSION: 1. Inferior endplate acute compression fracture of T12 with mild anterior height loss. This document has been electronically signed by: Terell Zavala MD on 09/11/2024 22:57:43
--- NOTE | ~2024-09-11 | CT_ITS ---
CLINICAL HISTORY: trauma CT head without contrast Comparison: CT/SR - CT HEAD/BRAIN WO IV CON - 08/21/2024 04:49 PM EST Findings: Moderate cerebral atrophy and compensatory ventriculomegaly. No intracranial hemorrhage, mass effect or midline shift. There is no sinus or mastoid fluid. The orbits are within normal limits. There is a left forehead scalp hematoma and extensive left periorbital swelling in the subcutaneous tissues. There is no acute fracture. IMPRESSION: 1. No acute intracranial findings. This document has been electronically signed by: Terell Zavala MD on 09/11/2024 20:45:31
--- NOTE | ~2024-09-11 | CT_ITS ---
CLINICAL HISTORY: trauma CT cervical spine without contrast Comparison: CT/SR - CT CERVICAL SPINE WO IV CON - 08/21/24 16:49 EST Findings: Normal vertebral body alignment. Multilevel degenerative change of the cervical spine There has been a previous posterior and anterior fusion at C6-7. There has been posterior decompression at C5 and C6. Visualized intracranial contents are unremarkable. No cervical fluid collections or masses. No consolidation or effusion at the lung apices. IMPRESSION: No acute findings. This document has been electronically signed by: Terell Zavala MD on 09/11/2024 20:42:27
[2024-09-11 19:26] VITALS: BP 168/81; PULSE 88; O2SAT 99
[2024-09-11 19:36] VITALS: BP 134/62; PULSE 87; RESP 18; TEMP 36.4; O2SAT 98; BMI 29.6
[2024-09-11 20:15] VITALS: BP 143/76; PULSE 80; RESP 24; TEMP 36; O2SAT 96
--- NOTE | 2024-09-11 20:33 | PC.NURSE ---
Pt arrived via EMS collared after unwitnessed fall at home, unknown downtime. Pt has raccoon eye abrasions and swelling to face, left eye swollen closed. Pt also has abrasions to bilateral lateral ankles with swelling, Right hip and Right posterior back. Pt denies any pain but reports discomfort in neck related to the collar. Pt brought to CT for scans, brought back to room and rectal temp obtained: 96.8F pt placed on bear hugger, labs obtained by [employer]. TARUN made aware. IV R-AC placed by EMS.
[2024-09-11 20:46] LABS: Basophils Percent Auto 0.1 % (0-2); Hematocrit 43.6 % (37.0-47.0); Hemoglobin 15.6 g/dl (12.0-16.0); Imm Gran Pct Auto 0.5 % (0.0-0.4); Lymphocytes Percent Auto 4.6 % (20-40); MANUAL DIFF FLAG SCAN; Mean Corpuscular HGB Conc 35.8 g/dl (31.0-35.0); Mean Corpuscular Hemoglobin 32.2 pg (27.0-33.0); Mean Corpuscular Volume 90.1 fL (80.0-98.0); Mean Platelet Volume 10.7 fL (9.4-12.3); Monocytes Absolute Auto 1.9 X10*3/uL (0.1-1.2); Neutrophils Absolute Auto 17.9 x10*3/uL (2.0-8.3); Neutrophils Percent Auto 85.8 % (45-73); Platelet Count 197 X10*3/uL (160-400); Red Blood Count 4.84 X10*6/uL (4.20-5.50); Red Cell Distribution Width 13.4 % (11.0-16.0); SCAN SMEAR FLAG 1; White Blood Count 20.8 X10*3/uL (4.8-10.8)
[2024-09-11 20:49] LABS: Anion Gap 18 (12-20); Blood Urea Nitrogen 38 mg/dL (9-16); Calcium 11.2 mg/dL (8.4-10.2); Carbon Dioxide 20 mmol/L (22-29); Chloride 107 mmol/L (96-108); Creatinine Clr Calc Pharmacy 45.9; Estimated Glomerular Filt Rate 54; Glucose Random 134 mg/dL (60-115); Magnesium 1.7 mg/dL (1.6-2.6); Potassium 3.9 mmol/L (3.3-5.1); Sodium 141 mmol/L (135-145)
[2024-09-11 20:56] LABS: SLIDE REVIEW VERIFIED
[2024-09-11] MEDS: Ketorolac Tromethamine 15 MG/ML VIAL IVPUSH (21:42)
[2024-09-11 22:00] VITALS: BP 139/67; PULSE 74; RESP 19; TEMP 36.7; O2SAT 96
[2024-09-11] MEDS: Lactated Ringers 1,000 ML 150 ML IVCONT (22:23)
--- NOTE | 2024-09-11 23:54 | ED.GENADULT ---
HPI - General Adult General Chief complaint: Fall Stated complaint: FALL, SWELLING BRUISING ON FOREHEAD, & EYES Time Seen by Provider: 09/11/24 19:27 Source: patient Limitations: no limitations History of Present Illness ED Provider: Rosa Roper PA-C HPI narrative: 79-year-old female presents after fall at home. Patient states this morning she was trying to close the blinds in her kitchen, when she fell, striking her face on a table, then falling backwards. When patient woke up, her daughter was at her side. Patient states she is not sure what time the incident occurred, but she was on the floor all day until her daughter arrived to her home. The patient was not on a blood thinner. Patient complains of right sided posterior rib pain. She has no additional pain related complaints. She denies headache, dizziness, nausea vomiting. Denies recent cough or cold symptoms, fever, dysuria, nausea vomiting diarrhea. Related Data Previous Rx's ?Medication ?Instructions ?Recorded methocarbamol 750 mg tablet 750 mg PO Q8H PRN pain, moderate 08/21/24 #10 tabs Allergies Allergy/AdvReac Type Severity Reaction Status Date / Time codeine [CODEINE] Allergy Unknown UNKNOWN Verified 09/11/24 19:40 diphenhydramine Allergy Unknown NAUSEA Verified 09/11/24 19:40 [From BENADRYL] Review of Systems Review of Systems: Yes all other systems are reviewed and are negative Constitutional: Constitutional: Denies fatigue, Denies fever(s) and Denies headache(s) ENT: Denies dizziness and Denies headache(s) Cardiovascular: Cardiovascular: Denies chest pain and Denies dyspnea Respiratory: Respiratory: Denies chest congestion, Denies cough and Denies dyspnea Gastrointestinal: Gastrointestinal: Denies abdominal pain, Denies diarrhea, Denies nausea and Denies vomiting Musculoskeletal: Musculoskeletal: Reports back pain Neurologic: Denies dizziness and Denies headache(s) Endocrine: Endocrine: Denies fatigue PMFSH Past Medical History Attestation statement: The following information was validated with the patient. Medical History (Updated 09/12/24 @ 00:06 by TARUN Hi) Insomnia Depression Hypertension Surgical History (Updated 05/17/21 @ 04:19 by Sarahi Galvan DO) History of carpal tunnel surgery H/O neck surgery Social History Social History (Updated 05/17/21 @ 02:59 by Sarahi Galvan DO) Patient Tobacco Use Status: Never used Tobacco Advance Directives: No Advance Directives Information Provided: No Physical Exam ED Vital Signs: Vital Signs - 24 hr 09/11/24 19:36 09/11/24 20:15 09/11/24 22:00 Temperature 97.6 F 96.8 F 98.0 F Pulse Rate 87 80 74 Respiratory Rate 18 24 H 19 Blood Pressure 134/62 143/76 H 139/67 Pulse Oximetry 98 96 96 Oxygen Delivery Method Room Air Room Air Room Air BMI result Body Mass Index 29.6 Const Other: Awake, contusion noted central forehead with overlying abrasion no longer bleeding Orientation/consciousness: patient oriented x3 Eyes Other: Bilateral periorbital ecchymosis noted, left greater than right, bilateral subconjunctival hemorrhages noted, no pain with extraocular eye movements, and she has full range of motion of the eyes Chest Other: Ecchymosis noted right lower posterior rib border with the associated tenderness to palpation no defect noted Resp Effort & Inspection: normal respiratory effort Cardio Other: Normal peripheral perfusion Skin Other: Warm dry no rash Neuro General: patient oriented x3, no focal motor deficits and CN's II-XI intact bilaterally Extrem Other: Able to move all extremities independently, able to flex and extend from both knees and perform straight leg raise, able to move upper extremities with full range of motion Psych Other: Cooperative Course Reevaluation(s) Reevaluation #1: Getting the patient's labs back, she has a significant leukocytosis, without any infectious signs symptoms. In chart review, patient was seen this past summer, after a traumatic injury, she had a similar distribution of her white blood cell count, given concurrent rhabdomyolysis at this time, I am attributing her leukocytosis to a stress response, and not sepsis. We will start LR at 150 mL/hour Medications Administered Generic Name Dose Route Start Last Admin Trade Name Freq PRN Reason Stop Dose Admin Lactated Ringer's 1,000 mls @ 150 mls/hr 09/11/24 21:45 09/11/24 22:23 Lr IVCONT 150 mls/hr .[id number] ATIF Administration Discontinued Medications Generic Name Dose Route Start Last Admin Trade Name Freq PRN Reason Stop Dose Admin Ketorolac Tromethamine 15 mg 09/11/24 21:28 09/11/24 21:42 Ketorolac Tromethamine 15 Mg/Ml Vial IVPUSH 09/11/24 21:29 15 mg ONCE ONE Administration Medical Decision Making Medical Decision Making [facility] Narrative: 79-year-old female presents after fall at home. Patient states this morning she was trying to close the blinds in her kitchen, when she fell, striking her face on a table, then falling backwards. When patient woke up, her daughter was at her side. Patient states she is not sure what time the incident occurred, but she was on the floor all day until her daughter arrived to her home. The patient was not on a blood thinner. Patient complains of right sided posterior rib pain. She has no additional pain related complaints. She denies headache, dizziness, nausea vomiting. Denies recent cough or cold symptoms, fever, dysuria, nausea vomiting diarrhea. Problem: Age History: Per patient I have considered the following differential diagnoses: Intracranial hemorrhage, cervical spine injury, rib fracture, orbital fracture, globe entrapment, rhabdomyolysis Plan: Patient has obvious signs of head trauma we will be scanning her head neck and max face. Obtaining a CT scan of the chest as well, she has focal palpable pain, I am concerned for rib fractures. She has no pain with extraocular eye movements to suggest entrapment or orbital fracture, which is reassuring. We will be obtaining screening labs including a CPK, she was on the floor for an extended period of time, she could be in rhabdo. She is also hypothermic, we will place the warming blanket on her. She is declining pain medicine. I have independently reviewed the following tests: Labs: Significant leukocytosis noted, not anemic, no electrolyte abnormality, kidney function is currently at her baseline, she is in rhabdomyolysis, her CPK is 7885 CT brain: CT head without contrast Comparison: CT/SR - CT HEAD/BRAIN WO IV CON - 08/21/2024 04:49 PM EST Findings: Moderate cerebral atrophy and compensatory ventriculomegaly. No intracranial hemorrhage, mass effect or midline shift. There is no sinus or mastoid fluid. The orbits are within normal limits. There is a left forehead scalp hematoma and extensive left periorbital swelling in the subcutaneous tissues. There is no acute fracture. IMPRESSION: 1. No acute intracranial findings. CT cervical spine:CT cervical spine without contrast Comparison: CT/SR - CT CERVICAL SPINE WO IV CON - 08/21/24 16:49 EST Findings: Normal vertebral body alignment. Multilevel degenerative change of the cervical spine There has been a previous posterior and anterior fusion at C6-7. There has been posterior decompression at C5 and C6. Visualized intracranial contents are unremarkable. No cervical fluid collections or masses. No consolidation or effusion at the lung apices. IMPRESSION: No acute findings. CT max face: MPRESSION: 1. No facial bone fracture. 2. Left periorbital soft tissue swelling and left forehead scalp hematoma. CT chest: IMPRESSION: 1. Inferior endplate acute compression fracture of T12 with mild anterior height loss. Lab Data 09/11/24 20:24 09/11/24 20:24 Labs: Lab Results 09/11/24 Range/Units 20:24 WBC 20.8 H (4.8-10.8) X10*3/uL RBC 4.84 (4.20-5.50) X10*6/uL Hgb 15.6 (12.0-16.0) g/dl Hct 43.6 (37.0-47.0) % MCV 90.1 (80.0-98.0) fL MCH 32.2 (27.0-33.0) pg MCHC 35.8 H (31.0-35.0) g/dl RDW 13.4 (11.0-16.0) % Plt Count 197 (160-400) X10*3/uL MPV 10.7 (9.4-12.3) fL Immature Gran % (Auto) 0.5 H (0.0-0.4) % Neut % (Auto) 85.8 H (45-73) % Lymph % (Auto) 4.6 L (20-40) % Thayer % (Auto) 9.0 (2-11) % Eos % (Auto) 0.0 (0-4) % Baso % (Auto) 0.1 (0-2) % Lymph # (Auto) 1.0 L (1.2-4.9) X10*3/uL Thayer # (Auto) 1.9 H (0.1-1.2) X10*3/uL Eos # (Auto) 0.0 (0.0-0.4) X10*3/uL Baso # (Auto) 0.0 (0.0-0.2) X10*3/uL Abs Immat Gran (auto) 0.10 H (0.00-0.03) X10*3/uL Absolute Neuts (auto) 17.9 H (2.0-8.3) x10*3/uL Absolute Nucleated RBC 0.000 (0.0-0.012) X10*3/uL Nucleated RBC % (auto) 0.0 (0.0-0.2) /100WBC Smear Tech's Comments VERIFIED Sodium 141 (135-145) mmol/L Potassium 3.9 (3.3-5.1) mmol/L Chloride 107 (96-108) mmol/L Carbon Dioxide 20 L (22-29) mmol/L Anion Gap 18 (12-20) BUN 38 H (9-16) mg/dL Creatinine 1.00 (0.5-1.4) mg/dL Estim Creat Clear Calc 45.9 Estimated GFR 54 Random Glucose 134 H (60-115) mg/dL Calcium 11.2 H (8.4-10.2) mg/dL Magnesium 1.7 (1.6-2.6) mg/dL Total Creatine Kinase 7885 H (26-140) U/L Discharge Plan Discharge Clinical Impression: Rhabdomyolysis, Periorbital ecchymosis of left eye, Periorbital ecchymosis of right eye, Traumatic hematoma of forehead, Traumatic subconjunctival hemorrhage of both eyes Patient Disposition: Admitted As Inpatient Print Language: Guinean
[2024-09-12] VITALS: BP 147/73; PULSE 100; RESP 20; TEMP 36.3; O2SAT 97
--- NOTE | 2024-09-12 | ECG_ITS ---
Test Reason : FALL Blood Pressure : */* mmHG Vent. Rate : 70 BPM Atrial Rate : 70 BPM P-R Int : 124 ms QRS Dur : 76 ms QT Int : 414 ms P-R-T Axes : 14 -27 -5 degrees QTcB Int : 447 ms Normal sinus rhythm with sinus arrhythmia Moderate voltage criteria for LVH, may be normal variant ( R in aVL , [place] product ) Borderline ECG When compared with ECG of 13-Jan-2024 15:59, No significant change was found Referred By: Silvio Mckeon Electronically Signed By: FAN VIERYA MD
--- NOTE | 2024-09-12 02:16 | PM.IMHP ---
History of Present Illness Date of Service: 09/12/24 Attending physician on admission: Silvio Mckeon Chief Complaint: Unwitnessed fall Patient is a 79-year-old white female with past medical history of insomnia, depression and hypertension who presents to the emergency room from home for evaluation of fall with head trauma and loss of consciousness. She apparently was trying to close the blinds in her kitchen this morning when she fell striking her face on a table and then falling backwards. The next thing she remembers is her daughter waking her up. She unfortunately is not sure at what time the incident occurred but believes she may have been on the floor the whole day until her daughter arrived at home. Initial imaging studies obtained in the emergency department included a CT scan of the brain, cervical spine and maxillofacial were unrevealing. Chest CT showed a T12 endplate compression fracture. Blood work was significant for rhabdomyolysis with a CPK of 7885 with associated leukocytosis (20.8 K), hypercalcemia (11.2) and transaminitis (AST of 159 & ALT of 59). She was started on IV fluids for the rhabdomyolysis and admission requested. Review of Systems Review of Systems: Twelve system review was completed. Patient currently denies any complaints and in fact does not want to be bothered. [facility] Medical History (Updated 09/12/24 @ 07:08 by Silvio Mckeon MD) Insomnia Depression Hypertension Surgical History (Updated 05/17/21 @ 04:19 by Sarahi Galvan DO) History of carpal tunnel surgery H/O neck surgery Social History (Updated 05/17/21 @ 02:59 by Sarahi Galvan DO) Patient Tobacco Use Status: Never used Tobacco Advance Directives: No Advance Directives Information Provided: No Meds Allergies Allergy/AdvReac Type Severity Reaction Status Date / Time codeine [CODEINE] Allergy Unknown UNKNOWN Verified 09/11/24 19:40 diphenhydramine Allergy Unknown NAUSEA Verified 09/11/24 19:40 [From BENADRYL] Physical Exam Vital Signs and Narrative: Vital Signs: Last Vital Signs Temp 97.4 F 09/12/24 00:00 Pulse 100 09/12/24 00:00 Resp 20 09/12/24 00:00 BP 147/73 H 09/12/24 00:00 Pulse Ox 97 09/12/24 00:00 O2 Del Method Room Air 09/12/24 00:00 BMI result Body Mass Index 29.6 General: Well nourished. Awake, alert and oriented x 4. No apparent distress Eyes: Bilateral periorbital ecchymoses (Raccoon eyes) No pallor or jaundice. PERRLA, EOMI HENT: Moist oral mucus membranes. No oropharyngeal lesions. Neck: Supple. No cervical adenopathy. No JVD Cardiovascular: Regular rate and rhythm. Normal heart sounds. No murmurs, rubs or gallops. No JVD. No peripheral edema. Respiratory: Normal respiratory effort with no accessory muscle use. CTAB. , CTA bilaterally Gastrointestinal: Abdomen is soft, non-tender, non-distended. Normoactive bowel sounds in all quadrants. No hepatosplenomegaly Extremities: No edema. No calf tenderness. Good peripheral pulses Skin - Warm/Dry. No rashes. No mottling. Capillary refill is < 2 seconds Neurological - AAOx4. Intact speech & cognition. Normal gait & balance. CN II - XII grossly intact but not individually tested. No motor or sensory deficits Hematologic: No bleeding. No ecchymosis. No swollen or tender lymph nodes. Psychiatric: Cooperative. Appropriate mood and affect. Results Labs 09/12/24 05:30 09/12/24 05:30 Labs: Laboratory Results - last 24 hr 09/11/24 20:24 MCV 90.1 MCH 32.2 MCHC 35.8 H RDW 13.4 Plt Count 197 MPV 10.7 Immature Gran % (Auto) 0.5 H Neut % (Auto) 85.8 H Lymph % (Auto) 4.6 L [place] % (Auto) 9.0 Eos % (Auto) 0.0 Baso % (Auto) 0.1 Lymph # (Auto) 1.0 L [place] # (Auto) 1.9 H Eos # (Auto) 0.0 Baso # (Auto) 0.0 Abs Immat Gran (auto) 0.10 H Absolute Neuts (auto) 17.9 H Absolute Nucleated RBC 0.000 Nucleated RBC % (auto) 0.0 Smear Tech's Comments VERIFIED Anion Gap 18 Estim Creat Clear Calc 45.9 Estimated GFR 54 Random Glucose 134 H Calcium 11.2 H Magnesium 1.7 Total Creatine Kinase 7885 H Imaging Radiologist's Impressions: Chest CT Inferior endplate acute compression fracture of T12 with mild anterior height loss. Maxillofacial CT 1. No facial bone fracture. 2. Left periorbital soft tissue swelling and left forehead scalp hematoma. Assessment and Plan (1) Traumatic subconjunctival hemorrhage of both eyes: Status: Acute (2) Traumatic hematoma of forehead: Status: Acute (3) Periorbital ecchymosis of right eye: Status: Acute (4) Periorbital ecchymosis of left eye: Status: Acute (5) Rhabdomyolysis: Status: Acute (6) Elevated liver enzymes: Status: Acute (7) Leukocytosis: Qualifiers: Leukocytosis type: leukemoid reaction Qualified Code(s): D72.823 - Leukemoid reaction Status: Acute (8) Hypercalcemia: Status: Acute (9) Unwitnessed fall: Status: Acute (10) Closed TBI (traumatic brain injury): Status: Acute (11) Compression fracture of T12 vertebra: Status: Acute Plan 79-year-old white female with past medical history of insomnia, depression and hypertension here with: # rhabdomyolysis # leukocytosis # transaminitis # hypercalcemia -secondary to head trauma and prolonged stay on the floor -CPK elevated at 7885 -noted leukocytosis is likely due to inflammatory response associated with the significant muscle damage -while noted transaminitis is also to the rhabdomyolysis -admit and start on IV fluids -monitor WBC count and liver enzymes -check urinalysis # unwitnessed fall # moderate TBI # bilateral periorbital ecchymoses -appears to have been an accidental mechanical fall from the description -it appears that she had a prolonged period of time when she was unconscious -unfortunately, this was unwitnessed and she is not a good historian -we will need to evaluate for possible syncope -we will get EKG and admit telemetry to monitor for cardiac arrhythmias # T12 compression fracture -likely traumatic -currently asymptomatic -manage with p.r.n. analgesics in case she has pain DVT: SCD's CODE STATUS: Full code Admission for at least 2 midnights for management of rhabdomyolysis This note is constructed using voice recognition software. While every effort has been made to ensure accuracy, supplier engineer errors may have been included. Total time managing care of this patient today: 75 minutes. Quality Stroke Does the patient have a stroke diagnosis?: No VTE Prior VTE?: No VTE Risk Level:: Medical - moderate - high VTE Device Contraindication: N/A - Device Ordered VTE Drug Contraindication: Treatment Not Tolerated
[2024-09-12 03:57] VITALS: BP 117/65; PULSE 94; RESP 16; O2SAT 96
--- NOTE | 2024-09-12 05:36 | PC.NURSE ---
Pt found sitting upright at the end of the stretcher attempting to change her hospital gown and had removed all monitor leads, the BP cuff, and her IV access. Pt assited back into bed with gown on. IV accesss reestablished in right AC (20G) and monitor leads reapplied with BP cuff. Pt reoriented to surroundings and instructed to use the call light when she needs something. Curtain to remain open for safety.
[2024-09-12 06:11] LABS: Basophils Percent Auto 0.2 % (0-2); Hemoglobin 15.1 g/dl (12.0-16.0); Imm Gran Abs Auto 0.11 X10*3/uL (0.00-0.03); Imm Gran Pct Auto 0.5 % (0.0-0.4); Lymphocytes Absolute Auto 1.3 X10*3/uL (1.2-4.9); Lymphocytes Percent Auto 6.4 % (20-40); MANUAL DIFF FLAG SCAN; Mean Corpuscular HGB Conc 35.1 g/dl (31.0-35.0); Mean Corpuscular Hemoglobin 31.9 pg (27.0-33.0); Mean Corpuscular Volume 90.7 fL (80.0-98.0); Mean Platelet Volume 11.1 fL (9.4-12.3); Monocytes Absolute Auto 1.8 X10*3/uL (0.1-1.2); Monocytes Percent Auto 8.7 % (2-11); Neutrophils Absolute Auto 17.6 x10*3/uL (2.0-8.3); Neutrophils Percent Auto 84.2 % (45-73); Platelet Count 217 X10*3/uL (160-400); Red Blood Count 4.74 X10*6/uL (4.20-5.50); Red Cell Distribution Width 13.8 % (11.0-16.0); SCAN SMEAR FLAG 1; White Blood Count 20.9 X10*3/uL (4.8-10.8)
[2024-09-12 06:31] VITALS: BP 120/67; PULSE 76; RESP 16; TEMP 36.6; O2SAT 98
[2024-09-12 06:32] LABS: Alanine Aminotransferase 59 U/L (0-31); Albumin Level 3.8 g/dL (3.5-5.0); Alkaline Phosphatase 58 U/L (39-117); Anion Gap 16 (12-20); Aspartate Amino Transferase 159 U/L (5-31); Bilirubin Total 1.5 mg/dL (0.0-1.0); Blood Urea Nitrogen 36 mg/dL (9-16); Calcium 10.5 mg/dL (8.4-10.2); Carbon Dioxide 21 mmol/L (22-29); Chloride 106 mmol/L (96-108); Creatinine Clr Calc Pharmacy 54.7; Estimated Glomerular Filt Rate > 60; Glucose Random 113 mg/dL (60-115); Potassium 3.8 mmol/L (3.3-5.1); Sodium 139 mmol/L (135-145); Total Protein 7.2 g/dL (6.5-8.0)
[2024-09-12 06:48] LABS: Thyroid Stimulating Hormone 0.12 uIU/mL (0.32-4.0)
[2024-09-12 07:05] LABS: SLIDE REVIEW VERIFIED
[2024-09-12] MEDS: Lactated Ringers 1,000 ML 150 ML IVCONT (07:30)
--- NOTE | 2024-09-12 07:39 | PM.EVENT ---
Event Note Date of Service: 09/13/24 Event Note: Unwitnessed fall 79-year-old white female with past medical history of insomnia, depression and hypertension presented due to fall at home with head trauma and loss of consciousness she fell striking her face on a table and then falling backwards. The next thing she remembers is her daughter waking her up. She unfortunately is not sure at what time the incident occurred but believes she may have been on the floor the whole day until her daughter arrived at home. CT scan of the brain, cervical spine and maxillofacial were unrevealing. Chest CT showed a T12 endplate compression fracture, CPK of 7885 with associated leukocytosis (20.8 K), hypercalcemia (11.2) and transaminitis (AST of 159 & ALT of 59). Denies facial pain, feels she was out for couple hours 79-year-old white female with past medical history of insomnia, depression and hypertension here with: # acute rhabdomyolysis with associated leukocytosis/ transaminitis/ hypercalcemia -CPK elevated at 7885 improved to 5056 -noted leukocytosis 01/28 question chronic versus likely due to inflammatory response associated with the significant muscle damage Continue IV fluids -monitor WBC count and liver enzymes -check urinalysis # unwitnessed fall # moderate TBI # bilateral periorbital ecchymoses -appears to have been an accidental mechanical fall /remains on ground for a prolonged period of time ? LOC -unfortunately, this was unwitnessed and she is not a good historian EKG normal sinus rhythm with sinus arrhythmia, no change from prior EKG, admit telemetry to monitor for cardiac arrhythmias # acute T12 compression fracture with mild anterior height loss -likely traumatic,currently asymptomatic - p.r.n. analgesics # low TSH 0.12 check free T3 and T4 DVT: SCD's CODE STATUS: Full code Admission for at least 2 midnights for management of rhabdomyolysis Time Spent With Patient Time: Total time managing care of this patient today ____ minutes.
--- NOTE | 2024-09-12 10:07 | PHA.MEDREC ---
Pharmacy Consult ? Medication Reconciliation Pharmacy has completed the medication reconciliation. Pt poor historian of medications. Spoke to pt's pharmacy to confirm meds.
--- NOTE | 2024-09-12 11:00 | CA_ITS ---
Transthoracic Echocardiogram Patient (Last, First, Middle): Stefania Hull, Gender: Female Date of : 1945 Age: 79 Procedure Date: 09/12/2024 Procedure Type: Transthoracic Echocardiogram Location: ER Height: 160.02 cm Weight: 75.75 kg BSA: 1.79 m2 Heart Rate: 68 bpm BP: 146 / 68 mmHg Second Butler: BRIANNA Rodriguez MD: Silvio Mckeon MD Molder Apprentice: Negro Sapp MD Symptoms: Syncope Study Quality: Fair ECG Rhythm: Sinus Conclusions: - 1. Hyperdynamic LVEF of greater than 70% with grade 1 diastolic dysfunction 2. Normal cardiac valvular Dopplers 3. Normal RV systolic pressure 4. Upper limits of normal ascending aortic size 5. No pericardial effusion Findings Left Ventricle Normal left ventricular cavity size. There is normal left ventricular wall thickness. The left ventricular systolic function is hyperdynamic. The visually estimated ejection fraction is >70%. Spectral Doppler is indicative of an impaired relaxation filling pattern. E/E prime ratio is <8, consistent with normal filling pressures. Evidence suggests grade I (mild) diastolic dysfunction. Right Ventricle Normal right ventricular cavity size and systolic function. Atria The left atrium is normal in size. Interatrial shunt cannot be excluded. The right atrium was not well visualized. Aortic Valve The aortic valve structure and function is likely normal. There is no aortic valve stenosis. There is no aortic valve regurgitation. Mitral Valve There is mild posterior mitral leaflet thickening. There is mild mitral annular calcification. There is trace mitral valve regurgitation. There is no mitral valve stenosis. Pulmonic Valve The pulmonic valve was not well visualized. Tricuspid Valve Likely normal tricuspid valve structure and function. There is mild tricuspid valve regurgitation. The right ventricular systolic pressure is normal. The right ventricular systolic pressure is 25 mmHg. Normal right atrial pressure. There is no evidence of pulmonary hypertension. Great Vessels The pulmonary artery was not well visualized. Small plaque is seen in the sino tubular ridge. Venous The inferior vena cava is normal in size and collapses greater than 50% with inspiration. Pericardium/Pleural There is no evidence of pericardial effusion. Prior Study Comparison No prior study available for comparison. Measurements 2D Linear Measurements IVSd: 1.18 0.6-0.9/0.6-1.0 cm LVIDd: 4.41 3.9-5.3/4.2-5.9 cm LVIDd Index: 2.46 2.4-3.2/2.2-3.1 cm/m2 LVIDs: 2.27 2.0-3.6 cm LVPWd: 0.76 0.7-1.1 cm LA Diam: 3.20 2.7-3.8/3.0-4.0 cm LAIDs Index: 1.79 1.5-2.3 cm/m2 LV Mass: 176.97 67-162/88-224 g LV Mass Index: 98.86 43-95/49-115 g/m2 LVOT Diam: 2.10 3.0+(-)1.3 cm 2D Systolic Function EF 4C: 79.50 >55% EF 2C: 77.30 >55% EF BiP: 78.90 >55% Mitral Valve MV Pk E: 0.86 MV PK A: 1.08 MV Decel Time: 238.00 E/A: 0.80 E'Lateral: 5.44 E'Medial: 5.33 E/E' Med: 16.10 E/E' Lat: 15.80 PHT: 70.00 MVA PHT: 3.14 Decel Forrest: 3.60 Aortic Valve AoV Pk Bo: 1.51 AoV Pk Grad: 9.00 KISHORE: 3.00 LVOT LVOT Pk Bo: 1.41 LVOT Mn Bo: 1.08 LVOT VTI: 0.30 LVOT Pk Grad: 8.00 LVOT Mn Grad: 5.00 LVOT Diam: 2.10 LVOT Area: 3.46 Diastolic Function MV Pk E: 0.86 MV Pk A: 1.08 E/A: 0.80 E'Medial: 5.33 E/E' Med: 16.10 E' Laterial: 5.44 E/E' Lat: 15.80 Right Ventricle TAPSE (mm): 23.40 TVS' Bo: 19.40 Tricuspid Valve TR Pk Bo: 2.33 TR Pk Grad: 22.00 RA Press: 3.00 RVSP: 25.00 Great Vessels Aorta Sinus of Valsalva: 3.30 2.0-3.5 cm Ao Asc: 3.50 2.1-3.4 cm Ao Arch: 3.30 Pulmonary Valve PV Pk Bo: 0.91 Peak PV Grad: 3.00 Updated in Other Vendor System with Status of Final Negro Sapp MD electronically signed on 09/12/2024 1:53:49 PM with status of Final
[2024-09-12 11:33] VITALS: BP 146/68; PULSE 70; RESP 16; TEMP 36.7; O2SAT 98
[2024-09-12 11:40] LABS: Appearance Urine Clear; Color Urine Yellow; Glucose Urine UA Negative (Negative); Leukocyte Esterase Urine Small (1+) (Negative); Nitrite Urine Negative (Negative); Specific Gravity - Urine 1.025 (1.005-1.025); UMIC TRIGGER UACC YES; Urine Blood Trace (Negative); Urine Ketones 80 mg/dL (Negative); Urine Protein 30 (1+) mg/dL (Neg-Trace)
[2024-09-12 11:42] LABS: Bacteria Urine None Seen (None Seen); Hyaline Casts Urine 0-2 /LPF (0-2); RBC Urine 0-2 /HPF (0-2); UACC Culture Trigger YES; WBC Urine >50 /HPF (0-5)
[2024-09-12] MEDS: Lactated Ringers 1,000 ML 100 ML IVCONT ×2 (12:44→22:44)
--- NOTE | 2024-09-12 13:39 | PC.NURSE ---
Placed on purewick for urine incontinence. Alert and confused, breathing even and unlabored. Family visiting at bedside
[2024-09-12 15:48] VITALS: BP 146/66; PULSE 89; RESP 15; O2SAT 95
--- NOTE | 2024-09-12 17:50 | PC.NURSE ---
Pt intermittently sleeping today. Reporting pain only in her back with movement for weeks . Denying any new complaints. Ate lunch with daughter at bedside. Fluids infusing, plan of care ongoing. No acute distress.
[2024-09-12 21:00] VITALS: BMI 31.6
[2024-09-12 21:07] VITALS: BP 133/70; PULSE 70; RESP 18; TEMP 37; O2SAT 97
[2024-09-13] VITALS (7 sets, daily range): BP systolic 126–149; BP diastolic 64–77; PULSE 70–91; RESP 18–20; TEMP 36.4–37.5; O2SAT 94–98
[2024-09-13] MEDS: 0.9 % Sodium Chloride Flush 3 ML SYRINGE IVFLUSH ×2 (01:05→08:58)
[2024-09-13 08:40] LABS: Hematocrit 36.6 % (37.0-47.0); Hemoglobin 12.9 g/dl (12.0-16.0); Mean Corpuscular HGB Conc 35.2 g/dl (31.0-35.0); Mean Corpuscular Hemoglobin 31.9 pg (27.0-33.0); Mean Corpuscular Volume 90.6 fL (80.0-98.0); Platelet Count 165 X10*3/uL (160-400); Red Blood Count 4.04 X10*6/uL (4.20-5.50); Red Cell Distribution Width 13.9 % (11.0-16.0); White Blood Count 12.6 X10*3/uL (4.8-10.8)
[2024-09-13] MEDS: Cholecalciferol (Vitamin D3) 25 MCG TABLET 50 MCG PO (08:57)
[2024-09-13] MEDS: lisinopriL 10 MG TABLET PO (08:57)
[2024-09-13 09:01] LABS: Alanine Aminotransferase 49 U/L (0-31); Albumin Level 3.2 g/dL (3.5-5.0); Alkaline Phosphatase 49 U/L (39-117); Anion Gap 13 (12-20); Aspartate Amino Transferase 98 U/L (5-31); Bilirubin Direct 0.4 mg/dL (0.0-0.5); Bilirubin Total 1.2 mg/dL (0.0-1.0); Blood Urea Nitrogen 20 mg/dL (9-16); Calcium 9.9 mg/dL (8.4-10.2); Carbon Dioxide 21 mmol/L (22-29); Chloride 110 mmol/L (96-108); Creatinine Clr Calc Pharmacy 81.9; Estimated Glomerular Filt Rate > 60; Glucose Random 112 mg/dL (60-115); Potassium 3.8 mmol/L (3.3-5.1); Sodium 140 mmol/L (135-145); Total Protein 6.3 g/dL (6.5-8.0)
--- NOTE | 2024-09-13 09:25 | MHC.CM.PN ---
IMM 09/13/24, Pt lives alone, is functionally independent. Her dtr lives nearby. She uses a cane. She does not have any home health services. PCP is Dr. Buchanan. HCP to be discussed with her and her dtr when dtr is here today. Dtr to transport home at DC. DCP: home, self care or with services. CM to follow for DC planning.
--- NOTE | 2024-09-13 12:47 | P.PNIM_ITS ---
Subjective Subjective Date of Service: 09/13/24 Interval History: Being followed for fall and rhabdomyolysis Offers no acute complaints denies facial pain, no nausea, no vomiting, denies fever, no chills, she fell while fixing blinds, daughter at bedside denies history of frequent falls patient had 1 recent fall in August when she slipped on ice. Tolerating diet, no acute events overnight. Review of Systems All other system reviewed and are negative Physical Exam 2 Vital Signs: Vital Signs: Last Vital Signs Temp 98.9 F 09/13/24 11:31 Pulse 80 09/13/24 11:31 Resp 18 09/13/24 11:31 BP 132/71 09/13/24 11:31 Pulse Ox 97 09/13/24 11:31 O2 Del Method Room Air 09/13/24 11:31 BMI result Body Mass Index 31.6 Const: Other: General resting comfortably in no acute distress. Face bilateral periorbital ecchymosis, scalp hematoma Neck no JVD. CVS regular rate rhythm, Respiratory lungs clear to auscultation, no respiratory distress Gastrointestinal abdomen soft, non tender, bowel sounds audible Extremities no edema. Neuro non focal Skin multiple bruises lower extremity in different stages/abrasion bilateral ankle Objective Data Active Medications Acetaminophen (Acetaminophen 325 Mg Tablet) 650 mg PO Q6H PRN PRN Reason: Pain, Mild 1-3,fever,headache Calcium Carbonate (Calcium Carbonate 750 Mg Tab.Chew) 750 mg PO Q4H PRN PRN Reason: Heartburn Donepezil HCl (Donepezil Hcl 5 Mg Tablet) 5 mg PO BEDTIME ATIF Lisinopril (Lisinopril 10 Mg Tablet) 10 mg PO DAILY [facility]; Protocol Last Admin: 09/13/24 08:57 Dose: 10 mg Documented By: [email or web address].[email or web address] Magnesium Hydroxide (Milk Of Magnesia 30 Ml Oral.Susp) 30 ml PO DAILY PRN PRN Reason: Constipation Melatonin (Melatonin 3 Mg Tablet) 6 mg PO BEDTIME PRN PRN Reason: Insomnia Mirtazapine (Mirtazapine 7.5 Mg Tablet) 7.5 mg PO BEDTIME ATIF Ondansetron HCl (Ondansetron Hcl 4 Mg/2 Ml Vial) 4 mg IVPUSH Q8H PRN PRN Reason: Nausea and Vomiting Senna (Sennosides 8.6 Mg Tablet) 17.2 mg PO BEDTIME PRN PRN Reason: Constipation Sodium Chloride (0.9 % Sodium Chloride Flush 3 Ml Syringe) 3 ml IVFLUSH QSHIFT [facility] Last Admin: 09/13/24 08:58 Dose: 3 ml Documented By: PODMORP Vitamin D (Cholecalciferol (Vitamin D3) 25 Mcg Tablet) 50 mcg PO DAILY [facility] Last Admin: 09/13/24 08:57 Dose: 50 mcg Documented By: PODMORP Labs 09/13/24 08:23 09/13/24 08:23 Labs: Laboratory Results - last 24 hr 09/13/24 08:23 MCV 90.6 MCH 31.9 MCHC 35.2 H RDW 13.9 Plt Count 165 MPV 11.0 Absolute Nucleated RBC 0.000 Nucleated RBC % (auto) 0.0 Anion Gap 13 Estim Creat Clear Calc 81.9 Estimated GFR > 60 Random Glucose 112 Calcium 9.9 Total Bilirubin 1.2 H Direct Bilirubin 0.4 AST 98 H ALT 49 H Alkaline Phosphatase 49 Total Creatine Kinase 1069 H Total Protein 6.3 L Albumin 3.2 L Microbiology Microbiology Results: Microbiology 09/12/24 Unknown Urine Culture - Final Urine clean catch - Clean Catch Midstream Assessment and Plan (1) Compression fracture of T12 vertebra: Status: Acute (2) Closed TBI (traumatic brain injury): Status: Acute (3) Unwitnessed fall: Status: Acute (4) Leukocytosis: Status: Acute (5) Elevated liver enzymes: Status: Acute (6) Periorbital ecchymosis of right eye: Status: Acute (7) Periorbital ecchymosis of left eye: Status: Acute (8) Rhabdomyolysis: Status: Acute Plan 79-year-old white female with past medical history of insomnia, depression and hypertension here with: # acute rhabdomyolysis with associated leukocytosis/ transaminitis/ acute hypercalcemia -CPK elevated at 7885 on admission, gradually improving -WBC, LFTs and CPK trending down Continue IV fluids -monitor WBC count and liver enzymes -urinalysis no bacteria # unwitnessed fall/ moderate TBI/ bilateral periorbital ecchymoses -appears to have been an accidental mechanical fall /remains on ground for a prolonged period of time ? LOC -unwitnessed fall, patient is a poor historian EKG normal sinus rhythm with sinus arrhythmia, tele monitor showed no acute abnormality, echo showed normal EF, grade 1 diastolic dysfunction # acute T12 compression fracture with mild anterior height loss -likely traumatic,currently asymptomatic at rest, daughter requesting for analgesics due to pain with ambulation that started after recent fall in August Will Miacalcin nasal spray/scheduled Tylenol # low TSH 0.12 check free T3 and T4 # hypertension will hold Lasix and give lisinopril 10 mg daily DVT: Compression boots CODE STATUS: Full code Patient will require continued inpatient monitoring for IV fluids for acute rhabdomyolysis, elevated LFTs and acute T12 fracture /PT eval for safe disposition Quality Stroke Does the patient have a stroke diagnosis?: No VTE Prior VTE?: No VTE Risk Level:: Medical - moderate - high VTE Device Contraindication: N/A - Device Ordered VTE Drug Contraindication: Treatment Not Tolerated
[2024-09-13] MEDS: Lactated Ringers 1,000 ML 100 ML IVCONT (13:23)
[2024-09-13] MEDS: Acetaminophen 325 MG TABLET 650 MG PO ×2 (14:44→21:35)
[2024-09-13] MEDS: Calcitonin,Salmon,Synth Nasal 3.7 ML BOTTLE 1 SPRAY NOSTRILALT (15:35)
[2024-09-13] MEDS: Mirtazapine 7.5 MG TABLET PO (21:35)
[2024-09-13] MEDS: Donepezil HCl 5 MG TABLET PO (21:35)
[2024-09-13] MEDS: Melatonin 3 MG TABLET 6 MG PO (21:37)
[2024-09-14] MEDS: Lactated Ringers 1,000 ML 100 ML IVCONT ×2 (00:22→08:16)
[2024-09-14] MEDS: Ketorolac Tromethamine 15 MG/ML VIAL IVPUSH (01:03)
[2024-09-14] MEDS: 0.9 % Sodium Chloride Flush 3 ML SYRINGE IVFLUSH (01:04)
[2024-09-14 04:00] VITALS: BP 141/65; PULSE 64; RESP 18; TEMP 36.8; O2SAT 96
[2024-09-14 07:31] LABS: Alanine Aminotransferase 45 U/L (0-31); Alkaline Phosphatase 50 U/L (39-117); Aspartate Amino Transferase 73 U/L (5-31); Bilirubin Direct 0.4 mg/dL (0.0-0.5); Bilirubin Total 1.2 mg/dL (0.0-1.0); Total Protein 5.8 g/dL (6.5-8.0)
[2024-09-14 07:47] VITALS: BP 120/70; PULSE 60; RESP 18; TEMP 37.1; O2SAT 96
[2024-09-14 07:47] LABS: Free T4 (Free Thyroxine) 1.01 ng/dL (0.71-1.85)
[2024-09-14] MEDS: Cholecalciferol (Vitamin D3) 25 MCG TABLET 50 MCG PO (08:17)
[2024-09-14] MEDS: lisinopriL 10 MG TABLET PO (08:17)
[2024-09-14] MEDS: Acetaminophen 325 MG TABLET 650 MG PO ×2 (08:18→21:17)
[2024-09-14 11:45] VITALS: BP 119/72; PULSE 58; RESP 18; TEMP 37.2; O2SAT 93
[2024-09-14] MEDS: Furosemide 40 MG TABLET PO (12:07)
--- NOTE | 2024-09-14 13:00 | MHC.CM.PN ---
EMR REVIEWED, PT W/RHABDO, FALL, T12 COMPRESSION FX, P.T. RECOMMENDING STR, CM MET W/PT AND DTR FLY AT BEDSIDE, PT AND FLY HAVE NO PREFERENCES OF FACILITIES AND AGREEABLE TO BROAD REFERRAL, CM WILL FOLLOW UP W/FLY ONCE BED OFFERS COME IN,CM WILL CONT TO FOLLOW.
--- NOTE | 2024-09-14 14:29 | P.PNIM_ITS ---
Subjective Subjective Date of Service: 09/14/24 Interval History: Being followed for rhabdomyolysis and T12 fracture Complaining of back pain, facial pain and tiredness no acute events overnight, tolerating diet, lives alone at home with her dog, daughter lives nearby. Review of Systems All other system reviewed and are negative Physical Exam 2 Vital Signs: Vital Signs: Last Vital Signs Temp 99.0 F 09/14/24 11:45 Pulse 58 09/14/24 11:45 Resp 18 09/14/24 11:45 BP 119/72 09/14/24 11:45 Pulse Ox 93 09/14/24 11:45 O2 Del Method Room Air 09/14/24 11:45 BMI result Body Mass Index 31.6 Const: Other: General resting comfortably in no acute distress. Face bilateral periorbital ecchymosis, scalp hematoma Neck no JVD. CVS regular rate rhythm, Respiratory lungs clear to auscultation, no respiratory distress Gastrointestinal abdomen soft, non tender, bowel sounds audible Extremities no edema. Neuro non focal Skin multiple bruises lower extremity in different stages/abrasion bilateral ankle Objective Data Active Medications Acetaminophen (Acetaminophen 325 Mg Tablet) 650 mg PO Q6H PRN PRN Reason: Pain, Mild 1-3,fever,headache Acetaminophen (Acetaminophen 325 Mg Tablet) 650 mg PO TID [facility] Last Admin: 09/14/24 08:18 Dose: 650 mg Documented By: GALO Calcitonin [place] (Calcitonin,[place],Synth Nasal 3.7 Ml Bottle) 1 spray NOSTRILALT DAILY [facility] Last Admin: 09/14/24 09:04 Dose: Not Given Documented By: GALO Non-Admin Reason: Previously Administered Calcium Carbonate (Calcium Carbonate 750 Mg Tab.Chew) 750 mg PO Q4H PRN PRN Reason: Heartburn Donepezil HCl (Donepezil Hcl 5 Mg Tablet) 5 mg PO BEDTIME [facility] Last Admin: 09/13/24 21:35 Dose: 5 mg Documented By: MARILYN Furosemide (Furosemide 40 Mg Tablet) 40 mg PO DAILY [facility]; Protocol Last Admin: 09/14/24 12:07 Dose: 40 mg Documented By: GALO Lidocaine (Lidocaine 4 % Patch Adh..Patch) 1 patch TRANSDERMA DAILY [facility]; Protocol Lisinopril (Lisinopril 10 Mg Tablet) 10 mg PO DAILY [facility]; Protocol Last Admin: 09/14/24 08:17 Dose: 10 mg Documented By: GALO Magnesium Hydroxide (Milk Of Magnesia 30 Ml Oral.Susp) 30 ml PO DAILY PRN PRN Reason: Constipation Melatonin (Melatonin 3 Mg Tablet) 6 mg PO BEDTIME PRN PRN Reason: Insomnia Last Admin: 09/13/24 21:37 Dose: 6 mg Documented By: MARILYN Comments: requested for sleep Mirtazapine (Mirtazapine 7.5 Mg Tablet) 7.5 mg PO BEDTIME [facility] Last Admin: 09/13/24 21:35 Dose: 7.5 mg Documented By: MARILYN Ondansetron HCl (Ondansetron Hcl 4 Mg/2 Ml Vial) 4 mg IVPUSH Q8H PRN PRN Reason: Nausea and Vomiting Oxycodone HCl (Oxycodone Hcl Immed Release 5 Mg Tablet) 5 mg PO Q6H PRN PRN Reason: Pain, Moderate(Pain Scale 4-6) Senna (Sennosides 8.6 Mg Tablet) 17.2 mg PO BEDTIME PRN PRN Reason: Constipation Sodium Chloride (0.9 % Sodium Chloride Flush 3 Ml Syringe) 3 ml IVFLUSH QSHIFT [facility] Last Admin: 09/14/24 08:16 Dose: Not Given Documented By: GALO Non-Admin Reason: IV Running Vitamin D (Cholecalciferol (Vitamin D3) 25 Mcg Tablet) 50 mcg PO DAILY [facility] Last Admin: 09/14/24 08:17 Dose: 50 mcg Documented By: GALO Labs 09/13/24 08:23 09/13/24 08:23 Labs: Laboratory Results - last 24 hr 09/14/24 06:07 Hold Purple Top SEE NOTE Total Bilirubin 1.2 H Direct Bilirubin 0.4 AST 73 H ALT 45 H Alkaline Phosphatase 50 Total Creatine Kinase 503 H Total Protein 5.8 L Albumin 3.0 L Free T4 1.01 Microbiology Microbiology Results: Microbiology 09/12/24 Unknown Urine Culture - Final Urine clean catch - Clean Catch Midstream Assessment and Plan (1) Compression fracture of T12 vertebra: Status: Acute (2) Closed TBI (traumatic brain injury): Status: Acute (3) Unwitnessed fall: Status: Acute Plan 79-year-old white female with past medical history of insomnia, depression and hypertension here with: # acute rhabdomyolysis with associated leukocytosis/ transaminitis/ acute hypercalcemia -CPK elevated at 7885 on admission, down to 503 today Will DC IV fluid -WBC, and LFTs trending down, no acute infection noted -urinalysis no bacteria # unwitnessed fall/ moderate TBI/ bilateral periorbital ecchymoses -appears to have been an accidental mechanical fall /remains on ground for a prolonged period of time ? LOC -unwitnessed fall, patient is a poor historian, lives alone daughter found her on floor EKG normal sinus rhythm with sinus arrhythmia, tele monitor showed no acute abnormality, echo showed normal EF, grade 1 diastolic dysfunction , no acute CHF Seen by PT they recommend short-term rehab patient did not participate with ambulation due to back and face pain. -on methocarbamol high-dose, will DC upon discharge causes syncope, lightheadedness, somnolence and dizziness. # acute T12 compression fracture with mild anterior height loss -likely traumatic, Continue Miacalcin nasal spray/scheduled Tylenol/add oxycodone as needed and lidocaine patch/PT # low TSH 0.12 , normal free T4 1.01, free T3 pending, no tachycardia noted # hypertension , will hold Lasix and give lisinopril 20 DVT: Compression boots CODE STATUS: Full code Patient will require continued inpatient monitoring for IV fluids for acute rhabdomyolysis, elevated LFTs and acute T12 fracture /PT eval for safe disposition Quality Stroke Does the patient have a stroke diagnosis?: No VTE Prior VTE?: No VTE Risk Level:: Medical - moderate - high VTE Device Contraindication: N/A - Device Ordered VTE Drug Contraindication: Treatment Not Tolerated
[2024-09-14 16:00] VITALS: BP 124/67; PULSE 89; RESP 18; TEMP 37.3; O2SAT 96
[2024-09-14] MEDS: oxyCODONE HCl Immed Release 5 MG TABLET PO (17:27)
[2024-09-14 20:00] VITALS: BP 143/71; PULSE 73; RESP 18; TEMP 36.8; O2SAT 93
[2024-09-14 21:07] LABS: Glucose, Whole Blood 137 mg/dL (60-115)
[2024-09-14] MEDS: Mirtazapine 7.5 MG TABLET PO (21:18)
[2024-09-14] MEDS: Docusate Sodium 100 MG CAPSULE 200 MG PO (21:18)
[2024-09-14] MEDS: Donepezil HCl 5 MG TABLET PO (21:18)
[2024-09-14 23:49] VITALS: BP 141/70; PULSE 77; RESP 18; TEMP 36.3; O2SAT 91
[2024-09-15] MEDS: 0.9 % Sodium Chloride Flush 3 ML SYRINGE IVFLUSH ×2 (02:08→09:33)
[2024-09-15 04:00] VITALS: BP 151/63; PULSE 72; RESP 18; TEMP 36.6; O2SAT 93
[2024-09-15 05:18] LABS: Triiodothyronine T3 Free 2.3 pg/mL (2.3-4.2)
[2024-09-15] MEDS: oxyCODONE HCl Immed Release 5 MG TABLET PO ×2 (05:28→11:25)
[2024-09-15 07:21] VITALS: BP 145/62; PULSE 65; RESP 16; TEMP 36.6; O2SAT 97
[2024-09-15] MEDS: Acetaminophen 325 MG TABLET 650 MG PO (09:27)
[2024-09-15 09:28] VITALS: BP 170/97
[2024-09-15] MEDS: Furosemide 40 MG TABLET PO (09:28)
[2024-09-15] MEDS: lisinopriL 20 MG TABLET PO (09:28)
[2024-09-15] MEDS: Cholecalciferol (Vitamin D3) 25 MCG TABLET 50 MCG PO (09:28)
[2024-09-15 09:57] LABS: Hematocrit 40.8 % (37.0-47.0); Hemoglobin 13.8 g/dl (12.0-16.0); Mean Corpuscular HGB Conc 33.8 g/dl (31.0-35.0); Mean Corpuscular Hemoglobin 31.3 pg (27.0-33.0); Mean Corpuscular Volume 92.5 fL (80.0-98.0); Mean Platelet Volume 10.9 fL (9.4-12.3); Platelet Count 175 X10*3/uL (160-400); Red Blood Count 4.41 X10*6/uL (4.20-5.50); Red Cell Distribution Width 13.8 % (11.0-16.0); White Blood Count 7.8 X10*3/uL (4.8-10.8)
[2024-09-15 10:13] LABS: Alanine Aminotransferase 56 U/L (0-31); Albumin Level 3.4 g/dL (3.5-5.0); Alkaline Phosphatase 52 U/L (39-117); Anion Gap 10 (12-20); Aspartate Amino Transferase 67 U/L (5-31); Bilirubin Direct 0.4 mg/dL (0.0-0.5); Bilirubin Total 1.1 mg/dL (0.0-1.0); Blood Urea Nitrogen 11 mg/dL (9-16); Carbon Dioxide 26 mmol/L (22-29); Chloride 107 mmol/L (96-108); Creatinine Clr Calc Pharmacy 70.8; Estimated Glomerular Filt Rate > 60; Glucose Random 151 mg/dL (60-115); Potassium 3.2 mmol/L (3.3-5.1); Sodium 140 mmol/L (135-145); Total Protein 6.6 g/dL (6.5-8.0)
--- NOTE | 2024-09-15 10:49 | HO.PM.IMPN ---
Subjective Subjective Date of Service: 09/15/24 Interval History: Being followed for rhabdomyolysis and T12 fracture Complaining of back pain, facial pain and tiredness no acute events overnight, tolerating diet, lives alone at home with her dog, daughter lives nearby. Review of Systems All other system reviewed and are negative. Physical Exam Vital Signs: Vital Signs: Last Vital Signs Temp 97.9 F 09/15/24 07:21 Pulse 65 09/15/24 07:21 Resp 16 09/15/24 07:21 BP 170/97 H 09/15/24 09:28 Pulse Ox 97 09/15/24 07:21 O2 Del Method Room Air 09/15/24 07:21 BMI result Body Mass Index 31.6 Const: Other: General resting comfortably in no acute distress. Face bilateral periorbital ecchymosis, scalp hematoma Neck no JVD. CVS regular rate rhythm, Respiratory lungs clear to auscultation, no respiratory distress Gastrointestinal abdomen soft, non tender, bowel sounds audible Extremities no edema. Neuro non focal Skin multiple bruises lower extremity in different stages/abrasion bilateral ankle Objective Data Active Medications Acetaminophen (Acetaminophen 325 Mg Tablet) 650 mg PO Q6H PRN PRN Reason: Pain, Mild 1-3,fever,headache Acetaminophen (Acetaminophen 325 Mg Tablet) 650 mg PO TID [facility] Last Admin: 09/15/24 09:27 Dose: 650 mg Documented By: GALO Calcitonin [place] (Calcitonin,[place],Synth Nasal 3.7 Ml Bottle) 1 spray NOSTRILALT DAILY [facility] Last Admin: 09/15/24 09:36 Dose: Not Given Documented By: GALO Non-Admin Reason: Patient Refused Calcium Carbonate (Calcium Carbonate 750 Mg Tab.Chew) 750 mg PO Q4H PRN PRN Reason: Heartburn Docusate Sodium (Docusate Sodium 100 Mg Capsule) 200 mg PO BEDTIME [facility] Last Admin: 09/14/24 21:18 Dose: 200 mg Documented By: ZAYDA Donepezil HCl (Donepezil Hcl 5 Mg Tablet) 5 mg PO BEDTIME [facility] Last Admin: 09/14/24 21:18 Dose: 5 mg Documented By: ZAYDA Furosemide (Furosemide 40 Mg Tablet) 40 mg PO DAILY [facility]; Protocol Last Admin: 09/15/24 09:28 Dose: 40 mg Documented By: GALO Lidocaine (Lidocaine 4 % Patch Adh..Patch) 1 patch TRANSDERMA DAILY [facility]; Protocol Last Admin: 09/15/24 09:28 Dose: Not Given Documented By: GALO Non-Admin Reason: Patient Refused Lisinopril (Lisinopril 20 Mg Tablet) 20 mg PO DAILY [facility]; Protocol Last Admin: 09/15/24 09:28 Dose: 20 mg Documented By: GALO Magnesium Hydroxide (Milk Of Magnesia 30 Ml Oral.Susp) 30 ml PO DAILY PRN PRN Reason: Constipation Melatonin (Melatonin 3 Mg Tablet) 6 mg PO BEDTIME PRN PRN Reason: Insomnia Last Admin: 09/13/24 21:37 Dose: 6 mg Documented By: MARILYN Comments: requested for sleep Mirtazapine (Mirtazapine 7.5 Mg Tablet) 7.5 mg PO BEDTIME [facility] Last Admin: 09/14/24 21:18 Dose: 7.5 mg Documented By: ZAYDA Ondansetron HCl (Ondansetron Hcl 4 Mg/2 Ml Vial) 4 mg IVPUSH Q8H PRN PRN Reason: Nausea and Vomiting Oxycodone HCl (Oxycodone Hcl Immed Release 5 Mg Tablet) 5 mg PO Q6H PRN PRN Reason: Pain, Moderate(Pain Scale 4-6) Last Admin: 09/15/24 05:28 Dose: 5 mg Documented By: MARILYN Senna (Sennosides 8.6 Mg Tablet) 17.2 mg PO BEDTIME PRN PRN Reason: Constipation Sodium Chloride (0.9 % Sodium Chloride Flush 3 Ml Syringe) 3 ml IVFLUSH QSHIFT [facility] Last Admin: 09/15/24 09:33 Dose: 3 ml Documented By: GALO Vitamin D (Cholecalciferol (Vitamin D3) 25 Mcg Tablet) 50 mcg PO DAILY [facility] Last Admin: 09/15/24 09:28 Dose: 50 mcg Documented By: GALO Labs 09/15/24 09:47 09/15/24 09:47 Labs: Laboratory Results - last 24 hr 09/14/24 09/14/24 09/15/24 06:07 21:03 09:47 MCV 92.5 MCH 31.3 MCHC 33.8 RDW 13.8 Plt Count 175 MPV 10.9 Absolute Nucleated RBC 0.000 Nucleated RBC % (auto) 0.0 Anion Gap 10 L Estim Creat Clear Calc 70.8 Estimated GFR > 60 POC Glucose 137 H Random Glucose 151 H Calcium 10.0 Total Bilirubin 1.1 H Direct Bilirubin 0.4 AST 67 H ALT 56 H Alkaline Phosphatase 52 Total Creatine Kinase 180 H Total Protein 6.6 Albumin 3.4 L Free T3 2.3 Assessment and Plan (1) Rhabdomyolysis: Status: Acute Plan 79-year-old white female with past medical history of insomnia, depression and hypertension here with: # acute rhabdomyolysis with associated leukocytosis/ transaminitis/ acute hypercalcemia -CPK elevated at 7885 on admission, down to 503 today Will DC IV fluid -WBC, and LFTs trending down, no acute infection noted -urinalysis no bacteria # unwitnessed fall/ moderate TBI/ bilateral periorbital ecchymoses -appears to have been an accidental mechanical fall /remains on ground for a prolonged period of time ? LOC -unwitnessed fall, patient is a poor historian, lives alone daughter found her on floor EKG normal sinus rhythm with sinus arrhythmia, tele monitor showed no acute abnormality, echo showed normal EF, grade 1 diastolic dysfunction , no acute CHF Seen by PT they recommend short-term rehab patient did not participate with ambulation due to back and face pain. -on methocarbamol high-dose, d/c'ed as it causes syncope, lightheadedness, somnolence and dizziness. # acute T12 compression fracture with mild anterior height loss -likely traumatic, Continue Miacalcin nasal spray/scheduled Tylenol/added oxycodone as needed and lidocaine patch/PT # low TSH 0.12 , normal free T4 T3, no tachycardia noted # hypertension : on lasix and lisinopril DVT: Compression boots CODE STATUS: Full code Reason for continued hospitalization: safe disposition Quality Stroke Does the patient have a stroke diagnosis?: No VTE Prior VTE?: No VTE Risk Level:: Medical - moderate - high VTE Device Contraindication: N/A - Device Ordered VTE Drug Contraindication: Treatment Not Tolerated
[2024-09-15 11:13] VITALS: BP 146/81; PULSE 84; RESP 18; TEMP 36.6; O2SAT 96
[2024-09-15] MEDS: Potassium Chloride Packet 20 MEQ PACKET 40 MEQ PO (11:24)
[2024-09-15] MEDS: Sennosides 8.6 MG TABLET 17.2 MG PO (11:26)
--- NOTE | 2024-09-15 12:09 | MHC.CM.PN ---
STR bed offer received from [facility], pt and her daughter Rachele are in agreement and accept the bed offer. Insurance auth now pending. Rachele will be in today to visit her mom, HCP copy requested, Rachele states she will bring it in today.
--- NOTE | 2024-09-15 14:16 | MHC.CM.PN ---
Insurance auth obtained for pt to go to [facility] at [facility], she will transport there via BLS/[facility]. Pt and her daughter/HCP Rachele updated and in agreement. Copy o HCP received, now on file.
--- NOTE | 2024-09-15 14:17 | MHC.CM.PN ---
Insurance auth obtained for pt to go to [facility] at [facility], she will transport there via BLS/[facility]. Pt and her daughter/HCP Rachele updated and in agreement. Copy of HCP received, now on file.
--- NOTE | 2024-09-15 14:32 | P.DS_ITS ---
DS: Providers Provider Date of Service: 09/15/24 Date of admission: 09/12/24 02:18 Date of discharge: 09/15/24 Primary care physician: Nancy Vazquez MD DS: Diagnosis Discharge Diagnosis (1) Rhabdomyolysis: Status: Acute DS: Summary Hospital Course Hospital Course: HPI: Patient is a 79-year-old white female with past medical history of insomnia, depression and hypertension who presents to the emergency room from home for evaluation of fall with head trauma and loss of consciousness. She apparently was trying to close the blinds in her kitchen this morning when she fell striking her face on a table and then falling backwards. The next thing she remembers is her daughter waking her up. She unfortunately is not sure at what time the incident occurred but believes she may have been on the floor the whole day until her daughter arrived at home. Initial imaging studies obtained in the emergency department included a CT scan of the brain, cervical spine and maxillofacial were unrevealing. Chest CT showed a T12 endplate compression fracture. Blood work was significant for rhabdomyolysis with a CPK of 7885 with associated leukocytosis (20.8 K), hypercalcemia (11.2) and transaminitis (AST of 159 & ALT of 59). She was started on IV fluids for the rhabdomyolysis and admission requested. Hospital course: #. Acute rhabdomyolysis: CPK trended down and leukocytosis resolved with IV crystalloid resuscitation. Transaminitis trended down and patient with improvement in symptoms. #. Unwitnessed fall/TBI/ bilateral ecchymoses: -appears to have been an accidental mechanical fall /remains on ground for a prolonged period of time -unwitnessed fall, patient is a poor historian, lives alone daughter found her on floor -EKG normal sinus rhythm with sinus arrhythmia, tele monitor showed no acute abnormality, echo showed normal EF, grade 1 diastolic dysfunction , no acute CHF -Seen by PT they recommend short-term rehab patient did not participate with ambulation due to back and face pain. -on methocarbamol high-dose, d/c'ed as it causes syncope, lightheadedness, somnolence and dizziness. # acute T12 compression fracture with mild anterior height loss -likely traumatic, Continue Miacalcin nasal spray/scheduled Tylenol and lidocaine patch/PT Time Attestation Discharge Coordination Time (in mins): 40min Quality: Safe Use of Opioids Does Pt have an Active Cancer Diagnosis on the Problem List?: No Quality: Stroke Does the patient have a stroke diagnosis?: No Physical Exam Vital Signs: Vital Signs: Last Vital Signs Temp 97.9 F 09/15/24 11:13 Pulse 84 09/15/24 11:13 Resp 18 09/15/24 11:13 BP 146/81 H 09/15/24 11:13 Pulse Ox 96 09/15/24 11:13 O2 Del Method Room Air 09/15/24 11:13 BMI result Body Mass Index 31.6 Const: Other: General resting comfortably in no acute distress. Face bilateral periorbital ecchymosis, scalp hematoma Neck no JVD. CVS regular rate rhythm, Respiratory lungs clear to auscultation, no respiratory distress Gastrointestinal abdomen soft, non tender, bowel sounds audible Extremities no edema. Neuro non focal Skin multiple bruises lower extremity in different stages/abrasion bilateral ankle DS: Data Data Completed and Pending Labs on day of discharge: Laboratory Results - last 24 hr 09/14/24 09/14/24 09/15/24 06:07 21:03 09:47 WBC 7.8 RBC 4.41 Hgb 13.8 Hct 40.8 MCV 92.5 MCH 31.3 MCHC 33.8 RDW 13.8 Plt Count 175 MPV 10.9 Absolute Nucleated RBC 0.000 Nucleated RBC % (auto) 0.0 Sodium 140 Potassium 3.2 L Chloride 107 Carbon Dioxide 26 Anion Gap 10 L BUN 11 Creatinine 0.67 Estim Creat Clear Calc 70.8 Estimated GFR > 60 POC Glucose 137 H Random Glucose 151 H Calcium 10.0 Total Bilirubin 1.1 H Direct Bilirubin 0.4 AST 67 H ALT 56 H Alkaline Phosphatase 52 Total Creatine Kinase 180 H Total Protein 6.6 Albumin 3.4 L Free T3 2.[address] scan - head: Radiologist's impression: 1. No facial bone fracture. 2. Left periorbital soft tissue swelling and left forehead scalp hematoma. CT scan - chest: Radiologist's impression: 1. Inferior endplate acute compression fracture of T12 with mild anterior height loss. Discharge Plan Discharge Anticipated Discharge Date/Time: 09/15/24 14:26 Patient Disposition: er [facility] Discharge Diagnosis: Acute rhabdomyolysis Referrals: Russell Carreon [facility] [Outside] - 1 Week Physician,Unknown J [Physician] - 1 Week Discharge Medications: New furosemide 40 mg Tablet 40 mg PO DAILY Qty: 30 0RF Protocol: Hold for SBP< HOLD for SBP < : 90 Continued donepezil 5 mg tablet 5 mg PO BEDTIME lisinopril 20 mg tablet 20 mg PO DAILY mirtazapine 7.5 mg tablet 7.5 mg PO BEDTIME cholecalciferol (vitamin D3) 50 mcg (2,000 unit) capsule 50 mcg PO DAILY Discontinued furosemide 20 mg tablet 20 mg PO DAILY methocarbamol 750 mg tablet 750 mg PO Q8H PRN (Reason: pain, moderate) Qty: 10 0RF Discharge Orders: Discharge Order (Routine); Ordered 09/15/24 Ordered By: Laith Pereira Diet: Low salt diet Activity on Discharge: As tolerated Stand Alone Forms: Patient Portal Discharge page Print Language: Ethiopian Care Plan Goals: Follow-up with PCP in 1 week. Repeat BMP in 1 week Health Concerns: Acute T12 compression fracture Closed TBI Plan of Treatment: Analgesia p.r.n. Assessment: As above
[2024-09-15 15:30] VITALS: BP 148/71; PULSE 74; RESP 13; TEMP 36.3; O2SAT 96
--- NOTE | 2024-09-15 15:57 | P.CDIM_ITS ---
PROVIDER RESPONSE TEXT: To clarify, the appropriate diagnosis supported by the clinical indicators: Traumatic Rhabdomyolysis QUERY TEXT: PHYSICIAN'S DOCUMENTATION REQUEST Date of Query: 09/15/2024 11:07 AM EDT Patient Name: Stefania Hull Admit Date: 09/12/2024 Dear Laith Pereira MD, A review of the medical record indicates additional documentation may be needed. Please review below and update the documentation accordingly. Clinical Indicators: Progress note 09/15/24 - Acute rhabdomyolysis CPK elevated at 7885 on admission, down to 503 today, will dc IV fluids. Fell at home, bruised forehead, bilateral subconjunctival hemorrhage both eyes, periorbital ecchymosi s of right eye, Acute T12 compression fracture with mild anterior height loss, likely traumatic. Added oxycodone, lidocaine patch, tylenol. Based on the above, could you clarify any further specifics to the noted Rhabdomyolysis, if known: Traumatic Rhabdomyolysis Non-traumatic Rhabdomyolysis Other specifics to this diagnosis Other (explain) Clinically unable to determine (explain) Thank you, Regina Horner, CCS, CDIS Use of terms such as suspected, likely, concern for, or probable (associated with a specific diagnosi s that is being evaluated, monitored, or treated as if it exists) are acceptable and can be coded in the inpatient se tting, when documented at the time of discharge. Please use your independent medical judgment in providing your response. THIS QUERY IS PART OF THE PERMANENT MEDICAL RECORD
== END 2024-09-15 16:30 | disposition skilled nursing facility (03) | DRG 964 ==
LOC: HO.ED 09-12 → HO.EDOVER 09-12 02:24 → HO.IMC 09-12 19:55
PROVIDERS: Hospitalist; Physician Assistant Medical; Admitting Provider Internal Medicine; Emergency Provider Emergency Medicine Emergency Medical Services; PCP Internal Medicine; Visit Provider Student in an Organized Health Care Education/Training Program
DX: T79.6XXA Traumatic ischemia of muscle, initial encounter (principal); S22.089A Unspecified fracture of T11-T12 vertebra, initial encounter for closed fracture; S06.9XAA Unspecified intracranial injury with loss of consciousness status unknown, initial encounter; I10 Essential (primary) hypertension; W01.190A Fall on same level from slipping, tripping and stumbling with subsequent striking against furniture, initial encounter; S00.12XA Contusion of left eyelid and periocular area, initial encounter; S00.11XA Contusion of right eyelid and periocular area, initial encounter; Z79.899 Other long term (current) drug therapy
CPT/HCPCS: 36415; 70450; 70486; 71250; 72125; 80048; 80053; 80076; 81001; 82550; 82947; 83735; 84439; 84443; 84481; 85025; 85027; 87086; 93005; 93306; 97162; 99285; J1885; J7120; Q9957

== ENCOUNTER → 2024-09-11 19:30 | Outpatient (BNV) | payer MEDICARE, SELFPAY | PROVIDERS: Emergency Provider Emergency Medicine Emergency Medical Services; Visit Provider Radiology Diagnostic Radiology | DX: S22.080A Wedge compression fracture of T11-T12 vertebra, initial encounter for closed fracture (principal) | CPT/HCPCS: 70450; 70486; 71250; 72125 ==

== ENCOUNTER 2024-09-12 02:18 | Outpatient (BNV) | payer MEDICARE, SELFPAY | END 2024-09-12 06:47 | PROVIDERS: Admitting Provider Internal Medicine; Emergency Provider Emergency Medicine Emergency Medical Services; Visit Provider Internal Medicine Cardiovascular Disease | DX: I42.8 Other cardiomyopathies (principal); I36.1 Nonrheumatic tricuspid (valve) insufficiency; I34.81 Nonrheumatic mitral (valve) annulus calcification; I49.9 Cardiac arrhythmia, unspecified; W19.XXXA Unspecified fall, initial encounter | CPT/HCPCS: 93010; 93306 ==

== ENCOUNTER → 2024-09-12 02:18 | Outpatient (BNV) | payer MEDICARE, SELFPAY | PROVIDERS: Admitting Provider Internal Medicine; Emergency Provider Emergency Medicine Emergency Medical Services; Visit Provider Internal Medicine | DX: M62.82 Rhabdomyolysis (principal) | CPT/HCPCS: 99239; 99499 ==

== ENCOUNTER 2024-10-09 13:16 | Emergency (ER) | payer MEDICARE, SELFPAY ==
--- NOTE | ~2024-10-09 | CT_ITS ---
CLINICAL HISTORY: Hypercalcemia back pain CT abdomen and pelvis without contrast Comparison: CT/MN/SR - CT ABDOMEN PELVIS W IV CON - 01/13/24 14:10 EDT Findings: Limited evaluation without intravenous contrast. No consolidation or effusion. Mild bilateral basilar interstitial changes could be chronic. The gallbladder is absent. No biliary ductal dilatation. The unenhanced liver and spleen are within normal limits. Unenhanced pancreas is atrophic. Stable bilateral small adrenal lesions. No renal or ureteral stones and no hydronephrosis or hydroureter. No bowel obstruction, pneumoperitoneum, or pneumatosis. Colonic diverticulosis especially of the sigmoid colon. No free fluid. No loculated fluid collection. Appendix is unremarkable. Uterus is absent. Urinary bladder within normal limits. Atherosclerotic vascular disease with no aneurysm of the abdominal aorta. Mild dextrocurvature of lumbar spine, grade 1 anterolisthesis at L4-5, multilevel degenerative disc disease and facet arthropathy and diffuse demineralization. Mild decreased height of T12 vertebral body similar to previous chest CT dated 09/11/2024. Degenerative changes hips. IMPRESSION: 1. No acute findings. 2. Nonacute findings as described. This document has been electronically signed by: Jessica Kohler MD on 10/09/2024 22:30:43
--- NOTE | ~2024-10-09 | XR_ITS ---
EXAMINATION: XR CHEST CLINICAL INFORMATION: weakness COMPARISON: CT chest 09/11/2024. TECHNIQUE: 2 views of the chest were obtained. FINDINGS: The cardiac, hilar, and mediastinal contours are normal. Lungs demonstrate minimal prominence of the subpleural interstitial markings bilaterally. Lungs otherwise clear. There is no pneumothorax or pleural effusion. There is no focal osseous or soft tissue abnormality. Incompletely imaged lower cervical hardware. Degenerative changes of the shoulder joints and spine. XR/XR chest 2V IMPRESSION: Mild prominence of the subpleural interstitial markings in both lungs, chronic. No superimposed pulmonary disease. Electronically signed by: Bradley Johnson MD 10/09/2024 02:06 PM EDT
[2024-10-09 13:35] VITALS: BP 141/86; PULSE 91; RESP 18; TEMP 36.4; O2SAT 98; BMI 26.1
--- NOTE | 2024-10-09 13:35 | ED.GENADULT ---
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 had blood drawn as outpatient which showed calcium of 12 on arrival patient's calcium level was 11.5 patient advised to go to the ER for further management and IV hydration patient does not drink enough water drinks only maybe 1 16 oz bottle in 24 hours patient otherwise feels normal also patient was taking furosemide but daughter stopped the furosemide 1 week ago Related Data Home Medications ?Medication ?Instructions ?Recorded ?Confirmed cholecalciferol (vitamin D3) 50 50 mcg PO DAILY 09/12/24 09/12/24 mcg (2,000 unit) capsule donepezil 5 mg tablet 5 mg PO BEDTIME 09/12/24 09/12/24 lisinopril 20 mg tablet 20 mg PO DAILY 09/12/24 09/12/24 mirtazapine 7.5 mg tablet 7.5 mg PO BEDTIME 09/12/24 09/12/24 Previous Rx's ?Medication ?Instructions ?Recorded furosemide 40 mg tablet 40 mg PO DAILY #30 tabs 09/15/24 Allergies Allergy/AdvReac Type Severity Reaction Status Date / Time codeine [CODEINE] Allergy Unknown UNKNOWN Verified 10/09/24 13:40 diphenhydramine Allergy Unknown NAUSEA Verified 10/09/24 13:40 [From BENADRYL] Review of Systems Review of Systems: Yes all other systems are reviewed and are negative PMFSH Past Medical History Medical History Elevated liver enzymes Insomnia Depression Hypertension Surgical History History of carpal tunnel surgery H/O neck surgery Social History Social History Household Members: None Housing: House Do you presently have visiting nurse or other home services: No (no but daughter requesting to talk to someone) Comment: refuse to put non-skid yellow socks Patient Tobacco Use Status: Never used Tobacco Smoked in Last 30 Days: No Use of substances other than those prescribed or required for medical reasons: No Advance Directives: Yes Advance Directives on File: Yes Advance Directives Date on File: 09/16/24 service: No Physical Exam ED Vital Signs: Vital Signs - 24 hr 10/09/24 13:35 10/09/24 21:10 10/09/24 23:35 Temperature 97.5 F 97.6 F 97.6 F Pulse Rate 91 69 69 Respiratory Rate 18 12 12 Blood Pressure 141/86 H 106/66 106/66 Pulse Oximetry 98 98 98 Oxygen Delivery Method Room Air Room Air Room Air BMI result Body Mass Index 26.1 Appearance: Alert. Oriented X3. No acute distress. Eyes: PERRLA, No Nystagmus ENT: Pharynx normal. Oral Mucosa Dry Neck: Normal inspection. Neck supple. CVS: Normal heart rate and rhythm. Pulses normal. Respiratory: No respiratory distress. Equal air entry bilateral, no wheezing/rales/rhonchi Abdomen: Soft and nontender. Bowel sounds are present, no mass palpable, no CVA tenderness Skin: Skin warm and dry. Normal skin color. Normal skin turgor. Extremities: No lower extremity edema. No calf tenderness Neuro: Oriented X 3. No motor deficit. No sensory deficit.No cerebellar signs , cranial nerves II-XII intact Course Course Course Narrative: RME performed by Светлана Ortiz PA-C. Patient is a 79 year old assigned female at presenting to the emergency department with an elevated calcium. Patient states that she recently had labs drawn and was told that it was abnormal with very elevated calcium and she needs to come to the hospital. Detailed physical exam and review of systems are deferred to the [employer] storm[employer] leader. EKG, labs, imaging, and swabs ordered. Patient placed back in the waiting room pending room availability and results. Medications Administered Discontinued Medications Generic Name Dose Route Start Last Admin Trade Name Freq PRN Reason Stop Dose Admin Sodium Chloride 1,000 mls @ 999 mls/hr 10/09/24 19:44 10/09/24 21:38 Ns IV 10/09/24 20:44 Infused .Q1H1M ONE Infusion Medical Decision Making Medical Decision Making [facility] Narrative: Patient with hyperkalemia calcemia of 11.5 which is very mild was given IV fluids in the ER advised patient to continue to drink at least 36 oz a day and follow up with calcine furnace loader Patient has had CT scan of the abdomen done for 30 lb weight loss in last 2 months which is negative for any acute pathology Lab Data MDM Lab Attestation statement: I reviewed the patient's lab results. 10/09/24 13:56 10/09/24 13:56 Labs: Lab Results 10/09/24 Range/Units 13:56 WBC 10.2 (4.8-10.8) X10*3/uL RBC 4.78 (4.20-5.50) X10*6/uL Hgb 15.4 (12.0-16.0) g/dl Hct 45.4 (37.0-47.0) % MCV 95.0 (80.0-98.0) fL MCH 32.2 (27.0-33.0) pg MCHC 33.9 (31.0-35.0) g/dl RDW 14.3 (11.0-16.0) % Plt Count 243 D (160-400) X10*3/uL MPV 11.5 (9.4-12.3) fL Immature Gran % (Auto) 0.5 H (0.0-0.4) % Neut % (Auto) 71.0 (45-73) % Lymph % (Auto) 17.5 L (20-40) % Wilkes % (Auto) 8.1 (2-11) % Eos % (Auto) 2.0 (0-4) % Baso % (Auto) 0.9 (0-2) % Lymph # (Auto) 1.8 (1.2-4.9) X10*3/uL Wilkes # (Auto) 0.8 (0.1-1.2) X10*3/uL Eos # (Auto) 0.2 (0.0-0.4) X10*3/uL Baso # (Auto) 0.1 (0.0-0.2) X10*3/uL Abs Immat Gran (auto) 0.05 H (0.00-0.03) X10*3/uL Absolute Neuts (auto) 7.3 (2.0-8.3) x10*3/uL Absolute Nucleated RBC 0.000 (0.0-0.012) X10*3/uL Nucleated RBC % (auto) 0.0 (0.0-0.2) /100WBC Sodium 139 (135-145) mmol/L Potassium 3.7 (3.3-5.1) mmol/L Chloride 103 (96-108) mmol/L Carbon Dioxide 26 (22-29) mmol/L Anion Gap 14 (12-20) BUN 21 H (9-16) mg/dL Creatinine 0.84 (0.5-1.4) mg/dL Estim Creat Clear Calc 51.4 Estimated GFR > 60 Random Glucose 128 H (60-115) mg/dL Calcium 11.5 H D (8.4-10.2) mg/dL Magnesium 1.6 (1.6-2.6) mg/dL Total Bilirubin 1.2 H (0.0-1.0) mg/dL AST 29 (5-31) U/L ALT 22 (0-31) U/L Alkaline Phosphatase 65 (39-117) U/L Total Protein 7.8 (6.5-8.0) g/dL Albumin 4.3 (3.5-5.0) g/dL Influenza Type A (PCR) NEGATIVE (Negative) Influenza Type B (PCR) NEGATIVE (Negative) RSV RNA Qual (PCR) NEGATIVE (Negative) SARS-CoV-2 RNA (RT-PCR) NEGATIVE (Negative) Independent Interpretation I performed an independent interpretation of an: EKG Interpretation: Normal sinus rhythm heart rate of 89 beats per minute left axis deviation LVH no acute ST-T changes no acute ischemia Discharge Plan Discharge Clinical Impression: Hypercalcemia Patient Disposition: Home, Self-Care Instructions: Hypercalcemia (ED) Additional Instructions: Drink plenty of fluids Stop furosemide for now Follow with your PCP Prescriptions: No Action donepezil 5 mg tablet 5 mg PO BEDTIME lisinopril 20 mg tablet 20 mg PO DAILY mirtazapine 7.5 mg tablet 7.5 mg PO BEDTIME cholecalciferol (vitamin D3) 50 mcg (2,000 unit) capsule 50 mcg PO DAILY furosemide 40 mg Tablet 40 mg PO DAILY Qty: 30 0RF Protocol: Hold for SBP< HOLD for SBP < : 90 Interventions: ED Discharge Assessment Last Done: 10/09/24 23:35 Discharge Date/Time: 10/09/24 23:36 Print Language: Nepali
--- NOTE | 2024-10-09 13:41 | ECG_ITS ---
Test Reason : HYPERCALCEMIA Blood Pressure : */* mmHG Vent. Rate : 89 BPM Atrial Rate : 89 BPM P-R Int : 134 ms QRS Dur : 80 ms QT Int : 340 ms P-R-T Axes : 34 -34 -2 degrees QTcB Int : 413 ms Normal sinus rhythm Left axis deviation Moderate voltage criteria for LVH, may be normal variant ( R in aVL , [place] product ) Abnormal ECG When compared with ECG of 12-Sep-2024 06:47, No significant change was found Referred By: Светлана Ortiz Electronically Signed By: MAL ESPAÑA
[2024-10-09 14:06] LABS: MANUAL DIFF FLAG NO
[2024-10-09 14:08] LABS: Basophils Absolute Auto 0.1 X10*3/uL (0.0-0.2); Basophils Percent Auto 0.9 % (0-2); Eosinophils Absolute Auto 0.2 X10*3/uL (0.0-0.4); Hematocrit 45.4 % (37.0-47.0); Hemoglobin 15.4 g/dl (12.0-16.0); Imm Gran Abs Auto 0.05 X10*3/uL (0.00-0.03); Imm Gran Pct Auto 0.5 % (0.0-0.4); Lymphocytes Absolute Auto 1.8 X10*3/uL (1.2-4.9); Lymphocytes Percent Auto 17.5 % (20-40); Mean Corpuscular HGB Conc 33.9 g/dl (31.0-35.0); Mean Corpuscular Hemoglobin 32.2 pg (27.0-33.0); Mean Platelet Volume 11.5 fL (9.4-12.3); Monocytes Absolute Auto 0.8 X10*3/uL (0.1-1.2); Monocytes Percent Auto 8.1 % (2-11); Neutrophils Absolute Auto 7.3 x10*3/uL (2.0-8.3); Platelet Count 243 X10*3/uL (160-400); Red Blood Count 4.78 X10*6/uL (4.20-5.50); Red Cell Distribution Width 14.3 % (11.0-16.0); White Blood Count 10.2 X10*3/uL (4.8-10.8)
[2024-10-09 14:24] LABS: Alanine Aminotransferase 22 U/L (0-31); Albumin Level 4.3 g/dL (3.5-5.0); Alkaline Phosphatase 65 U/L (39-117); Anion Gap 14 (12-20); Aspartate Amino Transferase 29 U/L (5-31); Bilirubin Total 1.2 mg/dL (0.0-1.0); Blood Urea Nitrogen 21 mg/dL (9-16); Calcium 11.5 mg/dL (8.4-10.2); Carbon Dioxide 26 mmol/L (22-29); Chloride 103 mmol/L (96-108); Creatinine Clr Calc Pharmacy 51.4; Estimated Glomerular Filt Rate > 60; Glucose Random 128 mg/dL (60-115); Magnesium 1.6 mg/dL (1.6-2.6); Potassium 3.7 mmol/L (3.3-5.1); Sodium 139 mmol/L (135-145); Total Protein 7.8 g/dL (6.5-8.0)
[2024-10-09 14:45] LABS: Influenza A PCR NEGATIVE (Negative); Influenza B PCR NEGATIVE (Negative); Resp Syncy Virus RNA Qual PCR NEGATIVE (Negative); SARS COV2 PCR INHOUSE NEGATIVE (Negative)
--- OUTSIDE RECORDS SUMMARY | 2024-10-09 19:43 | XMS_ITS | Clinical Summary ---
Author Organization [facility] Address [address] [place] [address] Phone Care Team Providers Care District Sales Manager Name Role Phone Tamra Jerry MD Primary Care Provider [phone] Allergies Active Allergy Reactions Criticality Noted Date Comments Anastrozole 10/29/2008 Counteracting antidepressants Hair loss Anti-Itch Itching 08/05/2005 Codeine 08/05/2005 GI upset Prednisone 08/05/2005 vitreous leaking Zolpidem 04/20/2015 nausea Medications cholecalcifero l (VITAMIN D-3) 50 mcg (2,000 unit) capsule TAKE 1 CAPSULE BY MOUTH EVERY DAY 90 capsule 1 4 Active mirtazapine (REMERON) 7.5 mg tablet TAKE 1 TABLET BY MOUTH EVERY DAY AT BEDTIME FOR 90 DAYS 4 Active donepeziL (ARICEPT) 5 mg tablet TAKE 1 TABLET BY MOUTH EVERY DAY AT BEDTIME FOR 90 DAYS 4 Active furosemide (LASIX) 20 mg tablet Take 1 tablet (20 mg total) by mouth 1 (one) time each day. 90 tablet 1 5 Active lisinopriL (PRINIVIL,ZEST RIL) 20 mg tablet TAKE 1 TABLET BY MOUTH EVERY DAY 90 tablet 1 5 Active gabapentin (NEURONTIN) 100 mg capsule Take 1 capsule (100 mg total) by mouth at bedtime. 90 each 1 5 Active lisinopriL (PRINIVIL,ZEST RIL) 20 mg tablet Take 1 Tablet by mouth daily. 4 09/22/19 25 Discontinued Active Problems Problem Noted Date Diagnosed Date Microalbuminuria 04/10/2024 Hyperparathyroidism 04/07/2024 White matter abnormality on MRI of brain 024 Overview (08/22/2024): Minimal white matter changes, likely a manifestation of chronic small vessel disease. Memory impairment 06/24/2023 Overview (08/22/2024): Prediabetes 05/23/2022 Arthritis of left sacroiliac joint 11/22/2021 Lumbosacral strain 11/22/2021 Obesity (BMI 30-39.9) 08/11/2020 Cervical spinal stenosis 08/13/2019 Overview (06/16/2024): S/p MRI 08/2019 With cord compression. 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 Depression 08/13/2019 Overview (08/22/2024): Multiple thyroid nodules 08/13/2019 Overview (06/16/2024): Non toxic. S/p thyroid ultrasound 08/2019 stable needs repeat annually. 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 Encounters Date Type Department Care Team Description 10/08/2024 1:05 PM EDT - 10/08/2024 11:59 PM EDT Hospital Encounter [facility] [address] [place] [address] Sacral pain Discharge Disposition: Home or Self Care 10/08/2024 12:45 PM EDT Office Visit [address] [phone] Tamra Jerry MD Sacral pain (Primary Dx); Primary hypertension; Prediabetes; Traumatic rhabdomyolysis, subsequent encounter; Weight loss; Moderate dementia without behavioral disturbance, psychotic disturbance, mood disturbance, or anxiety, unspecified dementia type (CMS/HCC) 10/08/[address] [phone] Bailey Will RN 09/27/[address] [facility] [address] [place] [phone] Ronan Valencia MD Heart failure, unspecified ([facility]/HCC); Essential (primary) hypertension; Hyperlipidemia, unspecified 09/19/[address] [facility] [address] [place] [phone] Ronan Valencia MD Essential (primary) hypertension; Rhabdomyolysis 09/18/[address] [facility] [address] [place] [address] Ronan Valencia MD Heart failure, unspecified ([facility]/HCC); Essential (primary) hypertension; Hyperlipidemia, unspecified 09/16/[address] [facility] [address] [place] [phone] Ronan Valencia MD Heart failure, unspecified ([facility]/HCC); Essential (primary) hypertension; Hyperlipidemia, unspecified 08/24/2024 11:15 AM EST - 08/24/2024 11:59 PM EST Hospital Encounter [address] [phone] Right foot pain Discharge Disposition: Home or Self Care 08/24/2024 10:30 AM EST Office Visit [address] [phone] Tamra Jerry MD Right foot pain (Primary Dx); Primary hypertension; Chronic left-sided low back pain without sciatica 08/12/2024 10:30 AM EST Consult Endocrinology [address] [phone] Chandan Paul MD Hyperparathyroidism (CMS/HCC) (Primary Dx) 08/12/2024 Nurse Triage Adult Medicine [address] [phone] Tamra Jerry MD Toe Pain (Right Foot [...] Surgical History Surgery Date Site/Laterality Comments HYSTERECTOMY 1992 FRANCISCA BSO, endometriosis and fibroids CHOLECYSTECTOMY COLONOSCOPY [...] compression. 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 Depression 08/13/2019 Hyperparathyroidism (CMS/HCC) 04/07/2024 Memory impairment 06/24/2023 Multiple thyroid nodules 08/13/2019 Non tox ic. [...] = 0.6 oz pur e alcohol) Comments No Sex and Gender Information Value Date Recorded Sex Assigned at Not on file Legal Sex Female 7:53 AM EST Gender Identity Not on file Sexual Orientation Not on file Obstetrics History Last Filed Vital Signs Vital Sign Reading Time Taken Comments Blood Pressure 124/80 10/08/2024 12:32 PM EDT Pulse 103 10/08/2024 12:32 PM EDT Temperature 36.3 ??C (97.3 ??F) 10/08/2024 12:32 PM E DT Respiratory Rate 14 10/08/2024 12:32 PM EDT Oxygen Saturation 97% 10/08/2024 12:32 PM EDT Inhaled Oxygen Concentration - - Weight 66.8 kg (147 lb 3.2 oz) 10/08/2024 12:32 PM EDT Height 160 cm (5' 3 ) 10/08/2024 12:32 PM EDT Body Mass Index 26.08 10/08/2024 12:32 PM EDT Plan of Treatment Upcoming Encounters Date Type Department Care Team (Late st Contact Info) Description 11/13/2024 10:00 AM EDT Appointment Bone [place]ensity [place] [phone] 11/18/2024 11:20 AM EDT Office Visit Endocrinology - Samara [address] [place] [phone] Indu Delcid PA [address] [place] [address] Health Maintenance Due Date Last Done Comments Zoster Vaccines (1 of 2) 1997 Medicare Annual Wellness Visit 06/10/2022 Social Influencers of Health Screening 06/10/2022 RSV Immunization Adult Patients (1 - 1-dose 75+ series) 2022 COVID-19 Vaccine (2023- season) 2024 06/12/2021, 10/07/2020, 09/16/2020 Depression Screening 08/24/2025 08/24/2024 Falls Risk Assessment 08/24/2025 08/24/2024, 025 Hypertension/CHF/CAD Annual BMP Blood Test 10/08/2025 10/08/2024, 09/28/2024, 09/21/2024, Additional history exists Osteoporosis Screening (Bone Density Screening) 12/16/2028 12/16/2018 [...] Procedure Name Priority Date/Time Associated Diagnosis Comments PARATHYROID HORMONE INTACT Routine 10/08/2024 1:39 PM EDT Hyperparathyroidism (CMS/HCC) COMPREHENSIVE METABOLIC PANEL Routine 10/08/2024 1:39 PM EDT Primary hypertension Traumatic rhabdomyolysis, subsequent encounter CREATINE KINASE AND CKMB Routine 10/08/2024 1:39 PM EDT Sacral pain XR SACRUM COCCYX 2+ VIEWS Routine 10/08/2024 1:24 PM EDT Sacral pain CBC WITH AUTO DIFFERENTIAL Routine 09/28/2024 6:45 AM EDT Heart failure, unspecified (CMS/HCC) Essential (primary) hypertension Hyperlipidemia, unspecified COMPREHENSIVE METABOLIC PANEL Routine 09/28/2024 6:45 AM EDT Heart failure, unspecified (CMS/HCC) Essential (primary) hypertension Hyperlipidemia, unspecified CBC AND DIFFERENTIAL Routine 09/28/2024 6:45 AM EDT Heart failure, unspecified (CMS/HCC) Essential (primary) hypertension Hyperlipidemia, unspecified CBC WITH AUTO DIFFERENTIAL Routine 09/21/2024 5:52 AM EDT Heart failure, unspecified (CMS/HCC) Essential (primary) hypertension Hyperlipidemia, unspecified COMPREHENSIVE METABOLIC PANEL Routine 09/21/2024 5:52 AM EDT Heart failure, unspecified (CMS/HCC) Essential (primary) hypertension Hyperlipidemia, unspecified CBC AND DIFFERENTIAL Routine 09/21/2024 5:52 AM EDT Heart failure, unspecified (CMS/HCC) Essential (primary) hypertension Hyperlipidemia, unspecified COMPREHENSIVE METABOLIC PANEL Routine 09/19/2024 7:08 AM EDT Essential (primary) hypertension Rhabdomyolysis COMPLETE BLOOD COUNT Routine 09/19/2024 7:08 AM EDT Essential (primary) hypertension Rhabdomyolysis XR FOOT 3+ VIEWS RIGHT Routine 11:25 AM EST Right foot pain LIPID PANEL Routine 04/06/2024 SCREENING MAMMOGRAPHY BI 2-VIEW BREAST INC CAD Routine 09/26/2023 10:34 AM EDT Encounter for screening mammogram for malignant neoplasm of breast DXA BONE DENSITY STUDY 1+ SITS AXIAL SKEL Routine 12/16/2018 11:30 AM EDT Asymptomatic menopausal state HM HEPATITIS C SCREENING Routine 04/15/2013 from Last 3 Months or Most Recently Relevant to Health Maintenance Results * (ABNORMAL) Parathyroid hormone intact (10/08/2024 1:39 PM EDT) Pathologist [facility] PTH 147.1(H) 18.5 - 88.0 pcg/mL LAB CHEMISTRY METHOD 10/08/2024 5:45 PM EDT [facility] Blood Venous blood specimen / Unknown Venipuncture / Unknown 10/08/2024 1:39 PM EDT 10/08/2024 1:39 PM EDT us Chandan Paul MD LAB BLOOD ORDERABLES Final Resul t [facility]) [facility] [address] [place] [address], [place] [phone] * Creatine kinase and CKMB (10/08/2024 1:39 PM EDT) Pathologist [facility] Total CK 39 22 - 269 unit/L LAB CHEMISTRY METHOD 10/08/2024 5:11 PM EDT [facility] CK-MB 1.7 1.0 - 3.6 ng/mL LAB CHEMISTRY METHOD 10/08/2024 5:11 PM EDT [facility] CK-MB Index 0.0 0.0 - 5.0 LAB CHEMISTRY METHOD 10/08/2024 5:11 PM [facility] Blood Venous blood specimen / Unknown Venipuncture / Unknown 10/08/2024 1:39 PM EDT 10/08/2024 1:39 PM EDT us Tamra Jerry MD LAB BLOOD ORDERABLES Final Resul t [facility] [address] [place] [address], [place] [phone] * (ABNORMAL) Comprehensive metabolic panel (10/08/2024 1:39 PM EDT) Only the most recent of4 resultswithin the time period is included. Sodium 138 133 - 145 mmol/L LAB CHEMISTRY METHOD 10/08/2024 5:11 PM [facility] Potassium 4.2 3.5 - 5.5 mmol/L LAB CHEMISTRY METHOD 10/08/2024 5:11 PM [facility] Chloride 104 96 - 110 mmol/L LAB CHEMISTRY METHOD 10/08/2024 5:11 PM [facility] CO2 21 21 - 32 mmol/L LAB CHEMISTRY METHOD 10/08/2024 5:11 PM [facility] Anion Gap 13(H) 3 - 11 LAB CHEMISTRY METHOD 10/08/2024 5:11 PM [facility] Glucose 119(H) 70 - 100 mg/dL LAB CHEMISTRY METHOD 10/08/2024 5:11 PM [facility] BUN 22 5 - 25 mg/dL LAB CHEMISTRY METHOD 10/08/2024 5:11 PM [facility] Creatinine 0.91 0.50 - 1.10 mg/dL LAB CHEMISTRY METHOD 10/08/2024 5:11 PM [facility] eGFR 65 >=60 mL/min/1. 73m2 LAB CHEMISTRY METHOD 10/08/2024 5:11 PM [facility] Comment:Calculation based on the??Chronic Kidney Disease Epidemiology Collaboration (CKD-EPI) equation refit??without adjustment for race. BUN/Creatinine Ratio 24.2 LAB CHEMISTRY METHOD 10/08/2024 5:11 PM [facility] Calcium 12.2(H) 8.5 - 10.5 mg/dL LAB CHEMISTRY METHOD 10/08/2024 5:11 PM [facility] AST (SGOT) 28 10 - 42 unit/L LAB CHEMISTRY METHOD 10/08/2024 5:11 PM [facility] ALT (SGPT) 30 10 - 60 unit/L LAB CHEMISTRY METHOD 10/08/2024 5:11 PM [facility] Alkaline Phosphatase 73 42 - 121 unit/L LAB CHEMISTRY METHOD 10/08/2024 5:11 PM [facility] Total Protein 7.7 6.0 - 8.0 g/dL LAB CHEMISTRY METHOD 10/08/2024 5:11 PM [facility] Albumin 4.3 3.2 - 5.0 g/dL LAB CHEMISTRY METHOD 10/08/2024 5:11 PM [facility] Total Bilirubin 1.2 0.0 - 1.4 mg/dL LAB CHEMISTRY METHOD 10/08/2024 5:11 PM [facility] Blood Venous blood specimen / Unknown Venipuncture / Unknown 10/08/2024 1:39 PM EDT 10/08/2024 1:39 PM EDT us Tamra Jerry MD LAB BLOOD ORDERABLES Final Resul t [facility] [address] [place] [address], * XR Sacrum Coccyx 2+ Views (10/08/2024 1:24 PM EDT) Anatomical Region Laterality Modality Body, Spine, Pelvis Radiographic Imaging 10/08/2024 4:57 PM EDT Impressions 10/08/2024 5:01 PM EDT No acute fracture or dislocation of the visualized sacrum or coccyx. -------- FINAL REPORT -------- Dictated By: Rubin Nair Dictated Date: 10/08/2024 16:57 ET Assigned Physician: Rubin Nair Reviewed and Electronically Signed By: Rubin Nair Signed Date: 10/08/2024 17:01 ET Workstation ID: [id number] Transcribed By: Self Edit Transcribed Date: 10/08/2024 16:57 ET Narrative 10/08/2024 5:01 PM EDT EXAMINATION: XR SACRUM COCCYX 2+ VIEWS 10/08/2024 1:06 PM Patient : 1945 CLINICAL DATA/INDICATIONS: sacral pain COMPARISON: Right hip radiograph from 11/22/2021 Findings: 3 views of the sacrum and coccyx demonstrates no acute fracture or dislocation. ??There are moderate degenerative changes at the lower sacrum and coccyx. ??The sacral joints are grossly patent. ??Moderate degenerative changes of the lower lumbar spine. Procedure Note Rubin Nair MD - 10/08/2024 EXAMINATION: XR SACRUM COCCYX 2+ VIEWS 10/08/2024 1:06 PM Patient :1945 CLINICAL DATA/INDICATIONS: sacral pain COMPARISON: Right hip radiograph from 11/22/2021 Findings: 3 views of the sacrum and coccyx demonstrates no acute fracture ordislocation. There are moderate degenerative changes at the lower sacrumand coccyx. The sacral joints are grossly patent. Moderate degenerativechanges of the lower lumbar spine. IMPRESSION: No acute fracture or dislocation of the visualized sacrum or coccyx. -------- FINAL REPORT -------- Dictated By: Rubin Nair Dictated Date: 10/08/2024 16:57 ET Assigned Physician: Rubin Nair Reviewed and Electronically Signed By: Rubin Nair Signed Date: 10/08/2024 17:01 ET Workstation ID: [id number] Transcribed By: Self Edit Transcribed Date: 10/08/2024 16:57 ET us Tamra Jerry MD IMG XR PROCEDURES Final Result * (ABNORMAL) CBC auto differential (09/28/2024 6:45 AM EDT) Only the most recent of2 resultswithin the time period is included. WBC 9.1 4.8 - 10.8 K/mcL LAB HEMETOLOGY METHOD 09/28/2024 12:33 PM EDT [facility] RBC 4.40 3.80 - 4.80 M/mcL LAB HEMETOLOGY METHOD 09/28/2024 12:33 PM EDT [facility] Hemoglobin 14.0 11.5 - 16.0 g/dL LAB HEMETOLOGY METHOD 09/28/2024 12:33 PM EDT [facility] Hematocrit 42.2 35.0 - 47.0 % LAB HEMETOLOGY METHOD 09/28/2024 12:33 PM EDT [facility] MCV 95.5 79.0 - 98.0 FL LAB HEMETOLOGY METHOD 09/28/2024 12:33 PM EDT [facility] MCH 31.7 27.0 - 32.0 pcg LAB HEMETOLOGY METHOD 09/28/2024 12:33 [facility] MCHC 33.2 32.0 - 37.0 g/dL LAB HEMETOLOGY METHOD 09/28/2024 12:33 [facility] RDW 14.2 11.0 - 15.0 % LAB HEMETOLOGY METHOD 09/28/2024 12:33 PM [facility] Platelets 282 130 - 400 K/mcL LAB HEMETOLOGY METHOD 09/28/2024 12:33 PM [facility] MPV 11.1(H) 7.0 - 11.0 FL LAB HEMETOLOGY METHOD 09/28/2024 12:33 PM [facility] NRBC 0.0 <1.0 % LAB HEMETOLOGY METHOD 09/28/2024 12:33 PM [facility] NRBC Absolute 0.00 <0.10 K/mcL LAB HEMETOLOGY METHOD 09/28/2024 12:33 PM [facility] Neutrophils Relative 70.6 % LAB HEMETOLOGY METHOD 09/28/2024 12:33 PM [facility] Lymphocytes Relative 16.8 % LAB HEMETOLOGY METHOD 09/28/2024 12:33 PM [facility] Monocytes Relative 9.3 % LAB HEMETOLOGY METHOD 09/28/2024 12:33 PM [facility] Eosinophils Relative 1.9 % LAB HEMETOLOGY METHOD 09/28/2024 12:33 PM [facility] Basophils Relative 1.0 % LAB HEMETOLOGY METHOD 09/28/2024 12:33 PM [facility] Immature Granulocytes Relative 0.4 % LAB HEMETOLOGY METHOD 09/28/2024 12:33 PM [facility] Neutrophils Absolute 6.39 1.50 - 7.00 K/mcL LAB HEMETOLOGY METHOD 09/28/2024 12:33 PM [facility] Lymphocytes Absolute 1.52 1.00 - 5.00 K/mcL LAB HEMETOLOGY METHOD 09/28/2024 12:33 PM [facility] Monocytes Absolute 0.84 0.20 - 1.00 K/mcL LAB HEMETOLOGY METHOD 09/28/2024 12:33 PM EDT [facility] Eosinophils Absolute 0.17 0.00 - 0.50 K/mcL LAB HEMETOLOGY METHOD 09/28/2024 12:33 PM EDT [facility] Basophils Absolute 0.09 0.00 - 0.20 K/mcL LAB HEMETOLOGY METHOD 09/28/2024 12:33 PM EDT [facility] Immature Granulocytes Absolute 0.04(H) 0.00 - 0.03 K/mcL LAB HEMETOLOGY METHOD 09/28/2024 12:33 PM EDT [facility] Blood Venous blood specimen / Unknown Venipuncture / Unknown 09/28/2024 6:45 AM EDT 09/28/2024 11:48 AM EDT us Ronan Valencia MD LAB BLOOD ORDERABLES Final Resu lt [facility] [address] [place] [address], [place] [phone] * (ABNORMAL) Complete blood count (09/19/2024 7:08 AM EDT) WBC 7.0 4.8 - 10.8 K/mcL LAB HEMETOLOGY METHOD 09/19/2024 12:32 PM EDT [facility] RBC 4.30 3.80 - 4.80 M/mcL LAB HEMETOLOGY METHOD 09/19/2024 12:32 PM EDT [facility] Hemoglobin 13.5 11.5 - 16.0 g/dL LAB HEMETOLOGY METHOD 09/19/2024 12:32 PM EDT [facility] Hematocrit 41.1 35.0 - 47.0 % LAB HEMETOLOGY METHOD 09/19/2024 12:32 PM EDT [facility] MCV 96.3 79.0 - 98.0 FL LAB HEMETOLOGY METHOD 09/19/2024 12:32 PM EDT [facility] MCH 31.6 27.0 - 32.0 pcg LAB HEMETOLOGY METHOD 09/19/2024 12:32 PM EDT [facility] MCHC 32.8 32.0 - 37.0 g/dL LAB HEMETOLOGY METHOD 09/19/2024 12:32 PM EDT [facility] RDW 14.0 11.0 - 15.0 % LAB HEMETOLOGY METHOD 09/19/2024 12:32 PM EDT [facility] Platelets 205 130 - 400 K/mcL LAB HEMETOLOGY METHOD 09/19/2024 12:32 PM EDT [facility] MPV 11.2(H) 7.0 - 11.0 FL LAB HEMETOLOGY METHOD 09/19/2024 12:32 PM EDT [facility] NRBC 0.0 <1.0 % LAB HEMETOLOGY METHOD 09/19/2024 12:32 PM EDT [facility] NRBC Absolute 0.00 <0.10 K/mcL LAB HEMETOLOGY METHOD 09/19/2024 12:32 PM EDT [facility] Blood Venous blood specimen / Unknown Venipuncture / Unknown 09/19/2024 7:08 AM EDT 09/19/2024 11:34 AM EDT us Ronan Valencia MD LAB BLOOD ORDERABLES Final Resu lt [facility] [address] [place] [address], * XR Foot 3+ Views Right (08/24/2024 11:25 AM EST) Anatomical Region Laterality Modality Lower Extremities, Foot Right Radiogra phic Imaging 08/24/2024 11:3 6 AM EST Impressions 08/24/2024 11:43 AM EST Chronic changes in the midfoot may be sequela from prior osteomyelitis or Charcot's arthropathy, with secondary degenerative changes. -------- FINAL REPORT -------- Dictated By: Lonnie Bonner Dictated Date: 08/24/2024 11:36 ET Assigned Physician: Lonnie Bonner Reviewed and Electronically Signed By: Lonnie Bonner Signed Date: 08/24/2024 11:43 ET Workstation ID: [id number] Transcribed By: Self Edit Transcribed Date: 08/24/2024 11:36 ET Narrative 08/24/2024 11:43 AM EST XR FOOT 3+ VIEWS RIGHT Reason: foot and toe pain Comparison: None FINDINGS: No acute fracture. ??Toes are held in partial flexion. ??Pes planus. ??Chronic changes in the mid foot, especially at the tarsometatarsal joints with destructive sclerotic and lytic lesions, joint space narrowing and hypertrophic changes. Procedure Note Lonnie Bonner MD - 08/24/2024 XR FOOT 3+ VIEWS RIGHT Reason: foot and toe pain Comparison: None FINDINGS: No acute fracture. Toes are held in partial flexion. Pes planus.Chronic changes in the mid foot, especially at the tarsometatarsal jointswith destructive sclerotic and lytic lesions, joint space narrowing andhypertrophic changes. IMPRESSION: Chronic changes in the midfoot may be sequela from prior osteomyelitis orCharcot's arthropathy, with secondary degenerative changes. -------- FINAL REPORT -------- Dictated By: Lonnie Bonner Dictated Date: 08/24/2024 11:36 ET Assigned Physician: Lonnie Bonner Reviewed and Electronically Signed By: Lonnie Bonner Signed Date: 08/24/2024 11:43 ET Workstation ID: [id number] Transcribed By: Self Edit Transcribed Date: 08/24/2024 11:36 ET Tamra Jerry MD IMG XR PROCEDURES Final Result * (ABNORMAL) Lipid panel (04/06/2024) LDL/HDL Ratio 3 0 - 4 Triglycerides 138 0 - 150 mg/dL Cholesterol 206(A) 0 - 200 mg/dL HDL 76 >=40 mg/dL LDL Cholesterol 103(A) 0 - 100 mg/dL Blood Venous blood specimen / Unknown us Historical Provider LAB BLOOD ORDERABLES Libby l [...] in 12 months. BI-RADS: Category 2: Benign us Michelle MCNEIL IMG XR PROCEDURES Final Resul [...] normal bone density by WHO criteria. The [facility] Department of Internal Medicine recommends using National [...] alternative screening schedule based on chiqui Pierce., [facility] July 26, 2011 for patients with osteopenia [...] normal bone density by WHO criteria. The [facility] Department of Internal Medicine recommendsusing National Osteoporosis [...] alternative screening schedule based on chiqui Pierce., NEJMJanuary 2011 for patients with osteopenia (based on hip BMD T-score) is as follows: * advanced osteopenia (T scores -2.00 to -2.49), BMD testing every year * moderate osteopenia (T scores -1.50 to -1.99), BMD testing every 5years mild osteopenia or normal BMD (T scores -1.50 and higher), BMD testingevery 15 years Kb Silvestre MD [facility] DXA PROCEDURES Libby l Result * Hepatitis C Screening (04/15/2013) [facility] Hepatitis C Screening abstracted Historical Provider HEALTH MAINTENANCE Final Result from Last 3 Months or Most Recently Relevant to Health Maintenance Insurance [employer] Care Teams District Sales Manager Relationship Specialty Start Date End Date Tamra Jerry MD [address] [place] [address] PCP - General Internal Medicine 04/27/21
--- OUTSIDE RECORDS SUMMARY | 2024-10-09 19:43 | XMS_ITS | Encounter Summary ---
Author Organization [facility] Address [address] [place] [address] Care Team Providers Care Barrel Liner Name Role Phone Tamra Jerry MD Primary Care Provider [phone] Encounter Details Date Type Department Care Team (Late Contact Info) Description 09/27/2024 Lab Requisition [facility] - Main Lab [address] [facility] [place] [phone] Ronan Valencia MD [address] [place] [phone] Heart failure, unspecified (CMS/HCC); Essential (primary) hypertension; Hyperlipidemia, unspecified Social History Tobacco Use Types Packs/Day Years Used Date Smoking Tobacco: Never Smokeless Tobacco: Never Alcohol Use Standard Drinks/Week Comments No 0 (1 standard drink = 0.6 oz pur e alcohol) Comments No Sex and Gender Information Value Date Recorded Sex Assigned at Not on file Legal Sex Female 7:53 AM EST Gender Identity Not on file Sexual Orientation Not on file documented as of this encounter Plan of Treatment Upcoming Encounters Date Type Department Care Team (Late st Contact Info) Description 11/13/2024 10:00 AM EDT Appointment Bone Density - [address] [phone] 11/18/2024 11:20 AM EDT Office Visit Endocrinology - [place] [address] [place], [place] [phone] Indu Delcid PA [address] [place], [place] documented as of this encounter Procedures Procedure Name Priority Date/Time Associated Diagnosis Comments CBC WITH AUTO DIFFERENTIAL Routine 09/28/2024 6:45 AM EDT Heart failure, unspecified (CMS/HCC) Essential (primary) hypertension Hyperlipidemia, unspecified CBC AND DIFFERENTIAL Routine 09/28/2024 6:45 AM EDT Heart failure, unspecified (CMS/HCC) Essential (primary) hypertension Hyperlipidemia, unspecified COMPREHENSIVE METABOLIC PANEL Routine 09/28/2024 6:45 AM EDT Heart failure, unspecified (CMS/HCC) Essential (primary) hypertension Hyperlipidemia, unspecified documented in this encounter Results * (ABNORMAL) CBC auto differential (09/28/2024 6:45 AM EDT) WBC 9.1 4.8 - 10.8 K/mcL LAB HEMETOLOGY METHOD 09/28/2024 12:33 PM [facility] RBC 4.40 3.80 - 4.80 M/mcL LAB HEMETOLOGY METHOD 09/28/2024 12:33 PM [facility] Hemoglobin 14.0 11.5 - 16.0 g/dL LAB HEMETOLOGY METHOD 09/28/2024 12:33 PM [facility] Hematocrit 42.2 35.0 - 47.0 % LAB HEMETOLOGY METHOD 09/28/2024 12:33 PM [facility] MCV 95.5 79.0 - 98.0 FL LAB HEMETOLOGY METHOD 09/28/2024 12:33 PM [facility] MCH 31.7 27.0 - 32.0 pcg LAB HEMETOLOGY METHOD 09/28/2024 12:33 PM [facility] MCHC 33.2 32.0 - 37.0 g/dL LAB HEMETOLOGY METHOD 09/28/2024 12:33 PM [facility] RDW 14.2 11.0 - 15.0 % LAB HEMETOLOGY METHOD 09/28/2024 12:33 PM [facility] Platelets 282 130 - 400 K/mcL LAB HEMETOLOGY METHOD 09/28/2024 12:33 PM [facility] MPV 11.1(H) 7.0 - 11.0 FL LAB HEMETOLOGY METHOD 09/28/2024 12:33 PM [facility] NRBC 0.0 <1.0 % LAB HEMETOLOGY METHOD 09/28/2024 12:33 PM [facility] NRBC Absolute 0.00 <0.10 K/mcL LAB HEMETOLOGY METHOD 09/28/2024 12:33 PM [facility] Neutrophils Relative 70.6 % LAB HEMETOLOGY METHOD 09/28/2024 12:33 PM [facility] Lymphocytes Relative 16.8 % LAB HEMETOLOGY METHOD 09/28/2024 12:33 PM [facility] Monocytes Relative 9.3 % LAB HEMETOLOGY METHOD 09/28/2024 12:33 PM [facility] Eosinophils Relative 1.9 % LAB HEMETOLOGY METHOD 09/28/2024 12:33 PM [facility] Basophils Relative 1.0 % LAB HEMETOLOGY METHOD 09/28/2024 12:33 PM [facility] Immature Granulocytes Relative 0.4 % LAB HEMETOLOGY METHOD 09/28/2024 12:33 PM [facility] Neutrophils Absolute 6.39 1.50 - 7.00 K/mcL LAB HEMETOLOGY METHOD 09/28/2024 12:33 PM EDT [facility] Lymphocytes Absolute 1.52 1.00 - 5.00 K/mcL LAB HEMETOLOGY METHOD 09/28/2024 12:33 PM EDT [facility] Monocytes Absolute 0.84 0.20 - 1.00 K/mcL LAB HEMETOLOGY METHOD 09/28/2024 12:33 PM EDT [facility] Eosinophils Absolute 0.17 0.00 - 0.50 K/[facility] LAB HEMETOLOGY METHOD 09/28/2024 12:33 PM EDT [facility] Basophils Absolute 0.09 0.00 - 0.20 K/[facility] LAB HEMETOLOGY METHOD 09/28/2024 12:33 PM EDT [facility] Immature Granulocytes Absolute 0.04(H) 0.00 - 0.03 K/[facility] LAB HEMETOLOGY METHOD 09/28/2024 12:33 PM EDT [facility] Blood Venous blood specimen / Unknown Venipuncture / Unknown 09/28/2024 6:45 AM EDT 09/28/2024 11:48 AM EDT us Ronan Valencia MD LAB BLOOD ORDERABLES Final Resu lt [facility] [address] [place] [address], * (ABNORMAL) Comprehensive metabolic panel (09/28/2024 6:45 AM EDT) Sodium 136 133 - 145 mmol/L LAB CHEMISTRY METHOD 09/28/2024 1:19 PM EDT [facility] Potassium 4.7 3.5 - 5.5 mmol/L LAB CHEMISTRY METHOD 09/28/2024 1:19 PM EDT [facility] Comment:Hemolysis present Chloride 103 96 - 110 mmol/L LAB CHEMISTRY METHOD 09/28/2024 1:19 PM [facility] CO2 24 21 - 32 mmol/L LAB CHEMISTRY METHOD 09/28/2024 1:19 PM [facility] Anion Gap 9 3 - 11 LAB CHEMISTRY METHOD 09/28/2024 1:19 PM [facility] Glucose 98 70 - 100 mg/dL LAB CHEMISTRY METHOD 09/28/2024 1:19 PM [facility] BUN 20 5 - 25 mg/dL LAB CHEMISTRY METHOD 09/28/2024 1:19 PM [facility] Creatinine 0.66 0.50 - 1.10 mg/dL LAB CHEMISTRY METHOD 09/28/2024 1:19 PM [facility] eGFR 90 >=60 mL/min/1. 73m2 LAB CHEMISTRY METHOD 09/28/2024 1:19 PM [facility] Comment:Calculation based on the??Chronic Kidney Disease Epidemiology Collaboration (CKD-EPI) equation refit??without adjustment for race. BUN/Creatinine Ratio 30.3 LAB CHEMISTRY METHOD 09/28/2024 1:19 PM [facility] Calcium 11.2(H) 8.5 - 10.5 mg/dL LAB CHEMISTRY METHOD 09/28/2024 1:19 PM [facility] AST (SGOT) 36 10 - 42 unit/L LAB CHEMISTRY METHOD 09/28/2024 1:19 PM [facility] Comment:Hemolysis present ALT (SGPT) 44 10 - 60 unit/L LAB CHEMISTRY METHOD 09/28/2024 1:19 PM [facility] Alkaline Phosphatase 71 42 - 121 unit/L LAB CHEMISTRY METHOD 09/28/2024 1:19 PM [facility] Total Protein 7.3 6.0 - 8.0 g/dL LAB CHEMISTRY METHOD 09/28/2024 1:19 PM [facility] Albumin 3.6 3.2 - 5.0 g/dL LAB CHEMISTRY METHOD 09/28/2024 1:19 PM EDT [facility] Total Bilirubin 1.1 0.0 - 1.4 mg/dL LAB CHEMISTRY METHOD 09/28/2024 1:19 PM EDT [facility] Blood Venous blood specimen / Unknown Venipuncture / Unknown 09/28/2024 6:45 AM EDT 09/28/2024 11:48 AM EDT us Ronan Valencia MD LAB BLOOD ORDERABLES Final Resu lt [facility] [address] [place] [address], documented in this encounter Visit Diagnoses Diagnosis Heart failure, unspecified (CMS/HCC) Heart failure, unspecified Essential (primary) hypertension Unspecified essential hypertension Hyperlipidemia, unspecified documented in this encounter Additional Health Concerns Assessment Noted Time PHQ-9 Depression Total Score: 0 08/24/19 25 10:42 AM EST A fall risk assessment has been complete d for the patient 08/24/2024 10:42 AM EST documented as of this encounter Care Teams Barrel Liner Relationship Specialty Start Date End Date Tamra Jerry MD [address] [place] [address] PCP - General Internal Medicine 04/27/21 documented as of this encounter
--- OUTSIDE RECORDS SUMMARY | 2024-10-09 19:43 | XMS_ITS | Encounter Summary ---
Author Organization [facility] Address [address] [place] [address] Care Team Providers Care Reporting Process Consultant Name Role Phone Tamra Jerry MD Primary Care Provider [phone] Reason for Referral * Consultation (Routine) - Pending Review Specialty Diagnoses / Procedures Referred By Kwadwo t Referred To Contact Neurology Diagnoses Weight loss Moderate dementia without behavioral disturbance, psychotic disturbance, mood disturbance, or anxiety, unspecified dementia type ([facility]/HCC) Tamra Jerry MD [address] [place] [address] Phone: tel: fax: Referral ID Status Reason Start Date Expiration Date Visits Requested Visits Authorized [id number] Pending Review Specialty Services Required 10/08/2024 10/08/2025 1 1 * Consultation (Routine) - Pending Review Specialty Diagnoses / Procedures Referred By Contsheldon t Referred To Contact Gastroenterology Diagnoses Weight loss Tamra Jerry MD [address] [place] [address] Phone: tel: fax: Referral ID Status Reason Start Date Expiration Date Visits Requested Visits Authorized [id number] Pending Review Specialty Services Required 10/08/2024 10/08/2025 1 1 * Consultation (Routine) - Pending Review Specialty Diagnoses / Procedures Referred By Contact Referred To Contact Physical Medicine and Rehabilitation Diagnoses Sacral pain Tamra Jerry MD [address] [place] [phone] Phone: tel: fax: Referral ID Status Reason Start Date Expiration Date Visits Requested Visits Authorized [id number] Pending Review Specialty Services Required 10/08/2024 10/08/2025 1 1 Reason for Visit * Reason Comments Hypertension Fall Encounter Details Date Type Department Care Team (Late st Contact Info) Description 10/08/2024 12:45 PM EDT Office Visit Adult Medicine [facility] [address] [place] [address] Tamra Jerry MD [address] [place] [address] Sacral pain (Primary Dx); Primary hypertension; Prediabetes; Traumatic rhabdomyolysis, subsequent encounter; Weight loss; Moderate dementia without behavioral disturbance, psychotic disturbance, mood disturbance, or anxiety, unspecified dementia type ([facility]) Social History Tobacco Use Types Packs/Day Years [...] Mass Index 26.08 10/08/2024 12:32 PM EDT documented in this encounter Ordered Prescriptions Prescription Sig Dispense Quantity Refills Last Filled Start Date End Date gabapentin (NEURONTIN) 100 mg capsule Take 1 capsule (100 mg total) by mouth at bedtime. 90 each 1 10/08/2024 documented in this encounter Progress Notes * Tamra Jerry MD - 10/08/2024 12:45 PM EDT Chief Complaint: Chief Complaint Patient presents with Hypertension Fall IDENTIFIER: Stefania Hull is a 79 y.o. old female HPI She comes for evaluation accompanied by her daughter having been seen at the emergency room on September 11 and being transferred to [facility] rehab, returning home on October 01. We have no informationfrom the hospital or rehab and are not able to locate her in hospital records. She did not bring any paperwork or information with her today. Her daughter states that she fell in September 11 and was found on the floor after being on the floor for several hours. She had initial blood complaints and had x-rays and CAT scans done. It sounds like she had rhabdomyolysis and she had a vertebral fracture but it is not in the area of the pain that she has had in the left sacral area. She was treated initially with oxycodone in the hospital and is now using Tylenol and [id number] lidocaine patch, isbeing followed by the [facility] with home physical therapy and Occupational Therapy. Her daughter is having difficulty getting her to eat and is trying to give her her favorite foods which she is turning away, she has lost 25 pounds in the last 2 months. She does have known cognitive impairment and has been on Aricept, on Remeron for depression. She had been on lisinopril and Lasix for blood pressure and edema, the lisinopril was stopped in the hospital and her pressure has been controlled presently without medication. ROS: General: No malaise, significant weight loss or fever Respiratory: No cough, wheezing or shortness of breath Cardiovascular: No chest pain, palpitations, no orthopnea Past Medical History: Patient Active Problem List Diagnosis Date Noted History of breast cancer Microalbuminuria 04/10/2024 Hyperparathyroidism ([facility]/HCC) 04/07/2024 White matter abnormality on MRI of brain 07/10/2023 Memory impairment 06/24/2023 Prediabetes 05/23/2022 Arthritis of left sacroiliac joint (CMS/HCC) 11/22/2021 Lumbosacral strain 11/22/2021 Obesity (BMI 30-39.9) 08/11/2020 Cervical spinal stenosis 08/13/2019 Depression 08/13/2019 Multiple thyroid nodules 08/13/2019 Vitamin D deficiency 10/20/2018 Insomnia 10/29/2008 Hypertension 08/05/2005 Osteoarthritis of left knee 08/05/2005 Surgical History: Past Surgical History: Procedure Laterality Date BREAST BIOPSY : 2012 LT BREAST BX-BENIGN BREAST BIOPSY : 2007-[facility] CHOLECYSTECTOMY COLONOSCOPY 09/13/08 hemorrhoids and diverticulosis; repeat in ten years HYSTERECTOMY 1992 FR[facility]CA BSO, endometriosis and fibroids NECK SURGERY SCREENING MAMMOGRAM Bilateral 09/26/2023 TOTAL KNEE ARTHROPLASTY Bilateral Family History: Family History Problem Relation Name Age of Onset Breast cancer Neg Hx Social History: Social History Tobacco Use Smoking status: Never Smokeless tobacco: Never Substance Use Topics Alcohol use: No Allergies: Anastrozole, Anti-itch, Codeine, Prednisone, and Zolpidem Medications: Outpatient Medications Marked as Taking for the 10/08/24 encounter (Office Visit) with Tamra Jerry MD Medication Sig Dispense Refill cholecalciferol (VITAMIN D-3) 50 mcg (2,000 unit) capsule TAKE 1 CAPSULE BY MOUTH EVERY DAY 90 capsule 1 donepeziL (ARICEPT) 5 mg tablet TAKE 1 TABLET BY MOUTH EVERY DAY AT BEDTIME FOR 90 DAYS furosemide (LASIX) 20 mg tablet Take 1 tablet (20 mg total) by mouth 1 (one) time each day. 90 tablet 1 lisinopriL (PRINIVIL,ZESTRIL) 20 mg tablet TAKE 1 TABLET BY MOUTH EVERY DAY 90 tablet 1 mirtazapine (REMERON) 7.5 mg tablet TAKE 1 TABLET BY MOUTH EVERY DAY AT BEDTIME FOR 90 DAYS Medication Discontinued/Reordered: There are no discontinued medications. Vitals: Blood pressure 124/80, pulse 103, temperature 36.3 ??C (97.3 ??F), temperature source Temporal, resp. rate 14, height 1.6 m (63 ), weight 66.8 kg (147 lb 3.2 oz), SpO2 97%. Body mass index is 26.08 kg/m??.Plan is deferred until next visit Physical Exam: General: patient is in no acute distress. She has some with resolving bruising seen in the periorbital areas. Neck supple without adenopathy, no thyromegaly. Lungs clear with auscultation. Heart: regular S1S2 without murmur, rub or gallop. Extremities without cyanosis, clubbing or edema. There is discomfort with palpation of the left sacral area. Labs: Chemistries, sacral x-rays ordered Impression: 1. Sacral pain 2. Primary hypertension 3. Prediabetes 4. Traumatic rhabdomyolysis, subsequent encounter 5. Weight loss 6. Moderate dementia without behavioral disturbance, psychotic disturbance, mood disturbance, or anxiety, unspecified dementia type (CMS/HCC) Assessment and Plan: Her daughter is asked to bring the discharge information from rehab which will hopefully give some information regarding her hospital visit and testing done there. She is referred to physiatry for assistance in pain management and possible intervention. She will start on gabapentin 100 mg at night to help with discomfort and continue with the lidocaine patch and Tylenol. She has been refusing toeat, not clear if this is related to dementia or depression, she will follow-up with both GI and neurology. She will have the x-ray and lab work today and her daughter will be bringing discharge information from rehab to be reviewed. documented in this encounter Plan of Treatment Upcoming Encounters Date Type Department Care Team (Late st Contact Info) Description 11/13/2024 10:00 AM EDT Appointment Bone Density - [place] [address] [place] [phone] 11/18/2024 11:20 AM EDT Office Visit Endocrinology - [address] [phone] Indu Delcid PA [address] [place] [address] Scheduled Referrals Name Type Priority Associated Diagnoses Order Schedule Ambulatory referral to Physical Medicine Rehab Outpatient Referral Routine Sacral pain 1 Occurrences starting 10/08/2024 until 10/08/2025 Ambulatory referral to Gastroenterology Outpatient Referral Routine Weight loss 1 Occurrences starting 10/08/2024 until 10/08/2025 Ambulatory referral to Neurology Outpatient Referral Routine Weight loss Moderate dementia without behavioral disturbance, psychotic disturbance, mood disturbance, or anxiety, unspecified dementia type (CMS/HCC) 1 Occurrences starting 10/08/2024 until 10/08/2025 documented as of this encounter Results * Creatine kinase and CKMB (10/08/2024 1:39 PM EDT) Total CK 39 22 - 269 unit/L LAB CHEMISTRY METHOD 10/08/2024 5:11 PM EDT [facility] CK-MB 1.7 1.0 - 3.6 ng/mL LAB CHEMISTRY METHOD 10/08/2024 5:11 PM EDT [facility] CK-MB Index 0.0 0.0 - 5.0 LAB CHEMISTRY METHOD 10/08/2024 5:11 PM EDT [facility] Blood Venous blood specimen / Unknown Venipuncture / Unknown 10/08/2024 1:39 PM EDT 10/08/2024 1:39 PM EDT us Tamra Jerry MD LAB BLOOD ORDERABLES Final Resul t [facility] [address] [place] [address], * (ABNORMAL) Comprehensive metabolic panel (10/08/2024 1:39 PM EDT) Sodium 138 133 - 145 mmol/L LAB CHEMISTRY METHOD 10/08/2024 5:11 PM EDT [facility] Potassium 4.2 3.5 - 5.5 mmol/L LAB CHEMISTRY METHOD 10/08/2024 5:11 PM [facility] Chloride 104 96 - 110 mmol/L LAB CHEMISTRY METHOD 10/08/2024 5:11 PM [facility] CO2 21 21 - 32 mmol/L LAB CHEMISTRY METHOD 10/08/2024 5:11 PM [facility] Anion Gap 13(H) 3 - 11 LAB CHEMISTRY METHOD 10/08/2024 5:11 PM [facility] Glucose 119(H) 70 - 100 mg/dL LAB CHEMISTRY METHOD 10/08/2024 5:11 PM [facility] BUN 22 5 - 25 mg/dL LAB CHEMISTRY METHOD 10/08/2024 5:11 PM [facility] Creatinine 0.91 0.50 - 1.10 mg/dL LAB CHEMISTRY METHOD 10/08/2024 5:11 PM [facility] eGFR 65 >=60 mL/min/1. 73m2 LAB CHEMISTRY METHOD 10/08/2024 5:11 PM [facility] Comment:Calculation based on the??Chronic Kidney Disease Epidemiology Collaboration (CKD-EPI) equation refit??without adjustment for race. BUN/Creatinine Ratio 24.2 LAB CHEMISTRY METHOD 10/08/2024 5:11 PM [facility] Calcium 12.2(H) 8.5 - 10.5 mg/dL LAB CHEMISTRY METHOD 10/08/2024 5:11 PM [facility] AST (SGOT) 28 10 - 42 unit/L LAB CHEMISTRY METHOD 10/08/2024 5:11 PM [facility] ALT (SGPT) 30 10 - 60 unit/L LAB CHEMISTRY METHOD 10/08/2024 5:11 PM [facility] Alkaline Phosphatase 73 42 - 121 unit/L LAB CHEMISTRY METHOD 10/08/2024 5:11 PM [facility] Total Protein 7.7 6.0 - 8.0 g/dL LAB CHEMISTRY METHOD 10/08/2024 5:11 PM EDT [facility] Albumin 4.3 3.2 - 5.0 g/dL LAB CHEMISTRY METHOD 10/08/2024 5:11 PM EDT [facility] Total Bilirubin 1.2 0.0 - 1.4 mg/dL LAB CHEMISTRY METHOD 10/08/2024 5:11 PM EDT [facility] Blood Venous blood specimen / Unknown Venipuncture / Unknown 10/08/2024 1:39 PM EDT 10/08/2024 1:39 PM EDT us Tamra Jerry MD LAB BLOOD ORDERABLES Final Resul t [facility] [address] [place] [address], * XR Sacrum Coccyx 2+ Views (10/08/2024 [...] Signed Date: 10/08/2024 17:01 ET Workstation ID: [id number] Transcribed By: Self Edit Transcribed Date: 10/08/2024 [...] Signed Date: 10/08/2024 17:01 ET Workstation ID: [id number] Transcribed By: Self Edit Transcribed Date: 10/08/2024 16:57 ET Tamra Jerry MD IMG XR PROCEDURES Final Result documented in this encounter Visit Diagnoses Diagnosis Sacral pain- Primary Primary hypertension Unspecified essential hypertension Prediabetes Other abnormal glucose Traumatic rhabdomyolysis, subsequent encounter Weight loss Loss of weight Moderate dementia without behavioral disturbance, psychotic disturbance, mood disturbance, or anxiety, unspecified dementia type (CMS/HCC) Sacral pain documented in this encounter Additional Health Concerns Assessment Noted Time PHQ-9 Depression Total Score: 0 08/24/19 10:42 AM EST A fall risk assessment has been complete d for the patient 08/24/2024 10:42 AM EST documented as of this encounter Care Teams Reporting Process Consultant Relationship Specialty Start Date End Date Tamra Jerry MD [address] [place] [address] PCP - General Internal Medicine 04/27/21 documented as of this encounter
--- OUTSIDE RECORDS SUMMARY | 2024-10-09 19:43 | XMS_ITS | Encounter Summary ---
Author Organization [facility] Address [address] [place] [address] Care Team Providers Care Blasting Contract Man Name Role Phone Tamra Jerry MD Primary Care Provider [phone] Encounter Details Date Type Department Care Team (Late Contact Info) Description 09/18/2024 Lab Requisition [facility] - Main Lab [address] [facility] [place] [phone] Ronan Valencia MD [address] [place] [phone] Heart failure, unspecified (CMS/HCC); Essential (primary) hypertension; [...] 10:00 AM EDT Appointment Bone Density - [address] [phone] 11/18/2024 11:20 AM EDT Office Visit Endocrinology - [place] [address] [place], [place] [phone] nIdu Delcid PA [address] [place], [place] documented as of this encounter Procedures Procedure Name Priority Date/Time Associated Diagnosis Comments CBC WITH AUTO DIFFERENTIAL Routine 09/21/2024 5:52 AM EDT Heart failure, unspecified (CMS/HCC) Essential (primary) hypertension Hyperlipidemia, unspecified CBC AND DIFFERENTIAL Routine 09/21/2024 5:52 AM EDT Heart failure, unspecified (CMS/HCC) Essential (primary) hypertension Hyperlipidemia, unspecified COMPREHENSIVE METABOLIC PANEL Routine 09/21/2024 5:52 AM EDT Heart failure, unspecified (CMS/HCC) Essential (primary) hypertension Hyperlipidemia, unspecified documented in this encounter Results * (ABNORMAL) CBC auto differential (09/21/2024 5:52 AM EDT) WBC 7.6 4.8 - 10.8 K/mcL LAB HEMETOLOGY METHOD 09/21/2024 10:31 AM [facility] RBC 4.10 3.80 - 4.80 M/mcL LAB HEMETOLOGY METHOD 09/21/2024 10:31 AM [facility] Hemoglobin 12.9 11.5 - 16.0 g/dL LAB HEMETOLOGY METHOD 09/21/2024 10:31 AM [facility] Hematocrit 39.1 35.0 - 47.0 % LAB HEMETOLOGY METHOD 09/21/2024 10:31 AM [facility] MCV 96.1 79.0 - 98.0 FL LAB HEMETOLOGY METHOD 09/21/2024 10:31 AM [facility] MCH 31.7 27.0 - 32.0 pcg LAB HEMETOLOGY METHOD 09/21/2024 10:31 AM [facility] MCHC 33.0 32.0 - 37.0 g/dL LAB HEMETOLOGY METHOD 09/21/2024 10:31 AM [facility] RDW 14.1 11.0 - 15.0 % LAB HEMETOLOGY METHOD 09/21/2024 10:31 AM [facility] Platelets 218 130 - 400 K/mcL LAB HEMETOLOGY METHOD 09/21/2024 10:31 AM [facility] MPV 11.1(H) 7.0 - 11.0 FL LAB HEMETOLOGY METHOD 09/21/2024 10:31 AM [facility] NRBC 0.0 <1.0 % LAB HEMETOLOGY METHOD 09/21/2024 10:31 AM [facility] NRBC Absolute 0.00 <0.10 K/mcL LAB HEMETOLOGY METHOD 09/21/2024 10:31 AM [facility] Neutrophils Relative 59.8 % LAB HEMETOLOGY METHOD 09/21/2024 10:31 AM [facility] Lymphocytes Relative 23.9 % LAB HEMETOLOGY METHOD 09/21/2024 10:31 AM [facility] Monocytes Relative 9.6 % LAB HEMETOLOGY METHOD 09/21/2024 10:31 AM [facility] Eosinophils Relative 5.2 % LAB HEMETOLOGY METHOD 09/21/2024 10:31 AM [facility] Basophils Relative 0.8 % LAB HEMETOLOGY METHOD 09/21/2024 10:31 AM [facility] Immature Granulocytes Relative 0.7 % LAB HEMETOLOGY METHOD 09/21/2024 10:31 AM [facility] Neutrophils Absolute 4.53 1.50 - 7.00 K/mcL LAB HEMETOLOGY METHOD 09/21/2024 10:31 AM EDT [facility] Lymphocytes Absolute 1.81 1.00 - 5.00 K/mcL LAB HEMETOLOGY METHOD 09/21/2024 10:31 AM EDT [facility] Monocytes Absolute 0.73 0.20 - 1.00 K/mcL LAB HEMETOLOGY METHOD 09/21/2024 10:31 AM EDT [facility] Eosinophils Absolute 0.39 0.00 - 0.50 K/[facility] LAB HEMETOLOGY METHOD 09/21/2024 10:31 AM EDT [facility] Basophils Absolute 0.06 0.00 - 0.20 K/[facility] LAB HEMETOLOGY METHOD 09/21/2024 10:31 AM EDT [facility] Immature Granulocytes Absolute 0.05(H) 0.00 - 0.03 K/[facility] LAB HEMETOLOGY METHOD 09/21/2024 10:31 AM EDT [facility] Blood Venous blood specimen / Unknown Venipuncture / Unknown 09/21/2024 5:52 AM EDT 09/21/2024 10:06 AM EDT us Ronan Valencia MD LAB BLOOD ORDERABLES Final Resu lt [facility] [address] [place] [address], * (ABNORMAL) Comprehensive metabolic panel (09/21/2024 5:52 AM EDT) Sodium 138 133 - 145 mmol/L LAB CHEMISTRY METHOD 09/21/2024 10:48 AM EDT [facility] Potassium 3.7 3.5 - 5.5 mmol/L LAB CHEMISTRY METHOD 09/21/2024 10:48 AM EDT [facility] Chloride 104 96 - 110 mmol/L LAB CHEMISTRY METHOD 09/21/2024 10:48 AM [facility] CO2 30 21 - 32 mmol/L LAB CHEMISTRY METHOD 09/21/2024 10:48 AM [facility] Anion Gap 4 3 - 11 LAB CHEMISTRY METHOD 09/21/2024 10:48 AM [facility] Glucose 100 70 - 100 mg/dL LAB CHEMISTRY METHOD 09/21/2024 10:48 AM [facility] BUN 14 5 - 25 mg/dL LAB CHEMISTRY METHOD 09/21/2024 10:48 AM [facility] Creatinine 0.62 0.50 - 1.10 mg/dL LAB CHEMISTRY METHOD 09/21/2024 10:48 AM [facility] eGFR 92 >=60 mL/min/1. 73m2 LAB CHEMISTRY METHOD 09/21/2024 10:48 AM [facility] Comment:Calculation based on the??Chronic Kidney Disease Epidemiology Collaboration (CKD-EPI) equation refit??without adjustment for race. BUN/Creatinine Ratio 22.6 LAB CHEMISTRY METHOD 09/21/2024 10:48 AM [facility] Calcium 10.6(H) 8.5 - 10.5 mg/dL LAB CHEMISTRY METHOD 09/21/2024 10:48 AM [facility] AST (SGOT) 18 10 - 42 unit/L LAB CHEMISTRY METHOD 09/21/2024 10:48 AM [facility] ALT (SGPT) 45 10 - 60 unit/L LAB CHEMISTRY METHOD 09/21/2024 10:48 AM [facility] Alkaline Phosphatase 67 42 - 121 unit/L LAB CHEMISTRY METHOD 09/21/2024 10:48 AM [facility] Total Protein 6.2 6.0 - 8.0 g/dL LAB CHEMISTRY METHOD 09/21/2024 10:48 AM [facility] Albumin 3.2 3.2 - 5.0 g/dL LAB CHEMISTRY METHOD 09/21/2024 10:48 AM EDT [facility] Total Bilirubin 1.1 0.0 - 1.4 mg/dL LAB CHEMISTRY METHOD 09/21/2024 10:48 AM EDT [facility] Blood Venous blood specimen / Unknown Venipuncture / Unknown 09/21/2024 5:52 AM EDT 09/21/2024 10:06 AM EDT us Ronan Valencia MD LAB BLOOD ORDERABLES Final Resu lt [facility] [address] [place] [address], documented in this encounter Visit Diagnoses Diagnosis [...] documented as of this encounter Care Teams Blasting Contract Man Relationship Specialty Start Date End Date Tamra Jerry MD [address] [place] [address] PCP - General Internal Medicine 04/27/21 documented as of this encounter
--- OUTSIDE RECORDS SUMMARY | 2024-10-09 19:43 | XMS_ITS | Encounter Summary ---
Author Organization [facility] Address [address] [place] [address] Care Team Providers Care Window Glass Cutter Off Name Role Phone Tamra Jerry MD Primary Care Provider [phone] Encounter Details Date Type Department Care Team (Late Contact Info) Description 10/08/2024 Telephone Adult Medicine [address] [phone] [place] Will, RN Social History Tobacco Use Types Packs/Day Years [...] on file documented as of this encounter Progress Notes * [place] Will RN - 10/08/2024 8:53 AM EDT I left a message for Rachele to call the office at . documented in this encounter Plan of Treatment Upcoming Encounters Date Type Department Care Team (Late Contact Info) Description 11/13/2024 10:00 AM EDT Appointment Bone Density - [place] [address] [place] [address] 11/18/2024 11:20 AM EDT Office Visit Endocrinology - [address] [phone] Indu Delcid PA [address] [place], [place] documented as of this encounter Visit Diagnoses Not on filedocumented in this encounter Additional Health Concerns Assessment Noted Time PHQ-9 Depression Total Score: 0 08/24/19 10:42 AM EST A fall risk assessment has been complete d for the patient 08/24/2024 10:42 AM EST documented as of this encounter Care Teams Window Glass Cutter Off Relationship Specialty Start Date End Date Tamra Jerry MD [address] [place] [address] PCP - General Internal Medicine 04/27/21 documented as of this encounter
--- OUTSIDE RECORDS SUMMARY | 2024-10-09 19:43 | XMS_ITS | Encounter Summary ---
Author Organization [facility] Address [address] [place] [address] Care Team Providers Care Real Estate Legal Assistant Name Role Phone Tamra Jerry MD Primary Care Provider [phone] Encounter Details Date Type Department Care Team (Latest Contact Info) Description 10/08/2024 1:05 PM EDT - 10/08/2024 11:59 PM EDT Hospital Encounter XRAY - [place] [address] [place] [address] Sacral pain Discharge Disposition: Home or Self Care Social History Tobacco Use Types Packs/Day Years [...] on file documented as of this encounter Medications at Time of Discharge cholecalciferol (VITAMIN D-3) 50 mcg (2,000 unit) capsule TAKE 1 CAPSULE BY MOUTH EVERY DAY 90 capsule 1 06/15/2024 donepeziL (ARICEPT) 5 mg tablet TAKE 1 TABLET BY MOUTH EVERY DAY AT BEDTIME FOR 90 DAYS 03/13/2024 furosemide (LASIX) 20 mg tablet Take 1 tablet (20 mg total) by mouth 1 (one) time each day. 90 tablet 1 08/24/2024 gabapentin (NEURONTIN) 100 mg capsule Take 1 capsule (100 mg total) by mouth at bedtime. 90 each 1 10/08/2024 lisinopriL (PRINIVIL,ZESTRIL ) 20 mg tablet TAKE 1 TABLET BY MOUTH EVERY DAY 90 tablet 1 09/21/2024 mirtazapine (REMERON) 7.5 mg tablet TAKE 1 TABLET BY MOUTH EVERY DAY AT BEDTIME FOR 90 DAYS 03/13/2024 documented as of this encounter Discharge Disposition Disposition Code Departure Means Destination Home or Self Care documented in this encounter Plan of Treatment Upcoming Encounters Date Type Department Care Team (Late st Contact Info) Description 11/13/2024 10:00 AM EDT Appointment Bone Density - [place] [address] [place], [place] [phone] 11/18/2024 11:20 AM EDT Office Visit Endocrinology - [place] [address] [place], [place] [phone] Indu Delcid PA [address] [place], [place] documented as of this encounter Procedures Procedure Name Priority Date/Time Associated Diagnosis Comments XR SACRUM COCCYX 2+ VIEWS Routine 10/08/2024 1:24 PM EDT Sacral pain documented in this encounter Results * XR Sacrum Coccyx 2+ Views (10/08/2024 [...] Signed Date: 10/08/2024 17:01 ET Workstation ID: [id number] Transcribed By: Self Edit Transcribed Date: 10/08/2024 [...] Signed Date: 10/08/2024 17:01 ET Workstation ID: [id number] Transcribed By: Self Edit Transcribed Date: 10/08/2024 16:57 ET Tamra Jerry MD IMG XR PROCEDURES Final Result documented in this encounter Visit Diagnoses Diagnosis Sacral pain documented in this encounter Additional Health Concerns Assessment Noted Time PHQ-9 Depression Total Score: 0 08/24/19 25 10:42 AM EST A fall risk assessment has been complete d for the patient 08/24/2024 10:42 AM EST documented as of this encounter Care Teams Real Estate Legal Assistant Relationship Specialty Start Date End Date Tamra Jerry MD [address] [place] [address] PCP - General Internal Medicine 04/27/21 documented as of this encounter
--- OUTSIDE RECORDS SUMMARY | 2024-10-09 19:43 | XMS_ITS | Encounter Summary ---
Author Organization [facility] Address [address] [place] [address] Care Team Providers Care Manager Behavioral Name Role Phone Tamra Jerry MD Primary Care Provider [phone] Encounter Details Date Type Department Care Team (Late Contact Info) Description 09/16/2024 Lab Requisition [facility] - Main Lab [address] [facility] [place] [phone] Ronan Valencia MD [address] [place] [phone] Heart failure, unspecified (CMS/HCC); Essential (primary) hypertension; [...] 10:00 AM EDT Appointment Bone Density - [address] [phone] 11/18/2024 11:20 AM EDT Office Visit Endocrinology - [place] [address] [place] [phone] Indu Delcid PA [address] [place] [address] documented as of this encounter Visit Diagnoses Diagnosis Heart failure, unspecified (CMS/HCC) Heart failure, unspecified Essential (primary) hypertension Unspecified essential hypertension Hyperlipidemia, unspecified documented in this encounter Additional Health Concerns Assessment Noted Time PHQ-9 Depression Total Score: 0 08/24/19 25 10:42 AM EST A fall risk assessment has been complete d for the patient 08/24/2024 10:42 AM EST documented as of this encounter Care Teams Manager Behavioral Relationship Specialty Start Date End Date Tamra Jerry MD [address] [place] [address] PCP - General Internal Medicine 04/27/21 documented as of this encounter
--- OUTSIDE RECORDS SUMMARY | 2024-10-09 19:43 | XMS_ITS | Encounter Summary ---
Author Organization [facility] Address [address] [place] [address] Care Team Providers Care Software Development Manager Name Role Phone Tamra Jerry MD Primary Care Provider [phone] Encounter Details Date Type Department Care Team (Late Contact Info) Description 09/19/2024 Lab Requisition [facility] - Main Lab [address] [facility] [place] [phone] Ronan Valencia MD [address] [place] [phone] Essential (primary) hypertension; Rhabdomyolysis Social History Tobacco Use Types Packs/Day Years [...] AM EDT Appointment Bone Density - [place] [address] [place] [phone] 11/18/2024 11:20 AM EDT Office Visit Endocrinology - [place] [address] [place], [place] [phone] Indu Delcid PA [address] [place], [place] documented as of this encounter Procedures Procedure Name Priority Date/Time Associated Diagnosis Comments COMPLETE BLOOD COUNT Routine 09/19/2024 7:08 AM EDT Essential (primary) hypertension Rhabdomyolysis COMPREHENSIVE METABOLIC PANEL Routine 09/19/2024 7:08 AM EDT Essential (primary) hypertension Rhabdomyolysis documented in this encounter Results * (ABNORMAL) Comprehensive metabolic panel (09/19/2024 7:08 AM EDT) Sodium 139 133 - 145 mmol/L LAB CHEMISTRY METHOD 09/19/2024 12:47 PM [facility] Potassium 3.4(L) 3.5 - 5.5 mmol/L LAB CHEMISTRY METHOD 09/19/2024 12:47 PM [facility] Chloride 102 96 - 110 mmol/L LAB CHEMISTRY METHOD 09/19/2024 12:47 PM [facility] CO2 30 21 - 32 mmol/L LAB CHEMISTRY METHOD 09/19/2024 12:47 PM [facility] Anion Gap 7 3 - 11 LAB CHEMISTRY METHOD 09/19/2024 12:47 PM [facility] Glucose 99 70 - 100 mg/dL LAB CHEMISTRY METHOD 09/19/2024 12:47 PM [facility] BUN 17 5 - 25 mg/dL LAB CHEMISTRY METHOD 09/19/2024 12:47 PM [facility] Creatinine 0.62 0.50 - 1.10 mg/dL LAB CHEMISTRY METHOD 09/19/2024 12:47 PM [facility] eGFR 92 >=60 mL/min/1. 73m2 LAB CHEMISTRY METHOD 09/19/2024 12:47 PM EDT [facility] Comment:Calculation based on the??Chronic Kidney Disease Epidemiology Collaboration (CKD-EPI) equation refit??without adjustment for race. BUN/Creatinine Ratio 27.4 LAB CHEMISTRY METHOD 09/19/2024 12:47 PM [facility] Calcium 10.5 8.5 - 10.5 mg/dL LAB CHEMISTRY METHOD 09/19/2024 12:47 PM [facility] AST (SGOT) 31 10 - 42 unit/L LAB CHEMISTRY METHOD 09/19/2024 12:47 PM [facility] ALT (SGPT) 72(H) 10 - 60 unit/L LAB CHEMISTRY METHOD 09/19/2024 12:47 PM [facility] Alkaline Phosphatase 80 42 - 121 unit/L LAB CHEMISTRY METHOD 09/19/2024 12:47 PM [facility] Total Protein 6.3 6.0 - 8.0 g/dL LAB CHEMISTRY METHOD 09/19/2024 12:47 PM [facility] Albumin 3.1(L) 3.2 - 5.0 g/dL LAB CHEMISTRY METHOD 09/19/2024 12:47 PM [facility] Total Bilirubin 1.1 0.0 - 1.4 mg/dL LAB CHEMISTRY METHOD 09/19/2024 12:47 PM [facility] Blood Venous blood specimen / Unknown Venipuncture / Unknown 09/19/2024 7:08 AM EDT 09/19/2024 11:34 AM EDT us Ronan Valencia MD LAB BLOOD ORDERABLES Final Resu lt [facility] [address] [place] [address], [place] [phone] * (ABNORMAL) Complete blood count (09/19/2024 7:08 AM EDT) WBC 7.0 4.8 - 10.8 K/mcL LAB HEMETOLOGY METHOD 09/19/2024 12:32 PM [facility] RBC 4.30 3.80 - 4.80 M/mcL LAB HEMETOLOGY METHOD 09/19/2024 12:32 PM [facility] Hemoglobin 13.5 11.5 - 16.0 g/dL LAB HEMETOLOGY METHOD 09/19/2024 12:32 PM [facility] Hematocrit 41.1 35.0 - 47.0 % LAB HEMETOLOGY METHOD 09/19/2024 12:32 PM [facility] MCV 96.3 79.0 - 98.0 FL LAB HEMETOLOGY METHOD 09/19/2024 12:32 PM [facility] MCH 31.6 27.0 - 32.0 pcg LAB HEMETOLOGY METHOD 09/19/2024 12:32 PM [facility] MCHC 32.8 32.0 - 37.0 g/dL LAB HEMETOLOGY METHOD 09/19/2024 12:32 PM [facility] RDW 14.0 11.0 - 15.0 % LAB HEMETOLOGY METHOD 09/19/2024 12:32 PM [facility] Platelets 205 130 - 400 K/[facility] LAB HEMETOLOGY METHOD 09/19/2024 12:32 PM [facility] MPV 11.2(H) 7.0 - 11.0 FL LAB HEMETOLOGY METHOD 09/19/2024 12:32 PM [facility] NRBC 0.0 <1.0 % LAB HEMETOLOGY METHOD 09/19/2024 12:32 PM [facility] NRBC Absolute 0.00 <0.10 K/mcL LAB HEMETOLOGY METHOD 09/19/2024 12:32 PM [facility] Blood Venous blood specimen / Unknown Venipuncture / Unknown 09/19/2024 7:08 AM EDT 09/19/2024 11:34 AM EDT us Ronan Valencia MD LAB BLOOD ORDERABLES [facility] [address] [place] [address], documented in this encounter Visit Diagnoses Diagnosis Essential (primary) hypertension Unspecified essential hypertension Rhabdomyolysis documented in this encounter Additional Health Concerns Assessment Noted Time PHQ-9 Depression Total Score: 0 08/24/19 25 10:42 AM EST A fall risk assessment has been complete d for the patient 08/24/2024 10:42 AM EST documented as of this encounter Care Teams Software Development Manager Relationship Specialty Start Date End Date Tamra Jerry MD [address] [place] [address] PCP - General Internal Medicine 04/27/21 documented as of this encounter
--- OUTSIDE RECORDS SUMMARY | 2024-10-09 19:43 | XMS_ITS | Clinical Summary ---
Author Organization [facility] Address [address] [place] [address] Care Team Providers Care Wire Bender Hand Name Role Phone Mignon Lowery MD Primary Care Provider [phone] Social History Tobacco Use Types Packs/Day Years [...] age to complete this topic Care Teams Wire Bender Hand Relationship Specialty Start Date End Date Mignon Lowery MD PCP - General Internal Medicine 08/25/19
[2024-10-09] MEDS: 0.9 % Sodium Chloride 1,000 ML 999 ML IV (20:28)
[2024-10-09 21:10] VITALS: BP 106/66; PULSE 69; RESP 12; TEMP 36.4; O2SAT 98
--- NOTE | 2024-10-09 21:12 | PC.NURSE ---
Iv placed by float nurse Morenita, pt placed on bedside monitor, pt taken to Ct Scan.
--- NOTE | 2024-10-09 22:30 | PC.NURSE ---
pt reposition for comfort, warm blanket given.
--- NOTE | 2024-10-09 23:33 | PC.NURSE ---
Reviewed discharge instructions with pt and daughter, Both verbalized understanding, no sign of distress. Pt wheeled out and discharge with daughter.
[2024-10-09 23:35] VITALS: BP 106/66; PULSE 69; RESP 12; TEMP 36.4; O2SAT 98
== END 2024-10-09 23:36 | disposition home or self-care (01) ==
PROVIDERS: Physician Assistant Medical; Emergency Provider Internal Medicine; PCP Internal Medicine
DX: E83.52 Hypercalcemia (principal); R79.89 Other specified abnormal findings of blood chemistry; M54.50 Low back pain, unspecified; R94.31 Abnormal electrocardiogram [ECG] [EKG]; R11.0 Nausea; R10.2 Pelvic and perineal pain; Z79.899 Other long term (current) drug therapy; Z03.818 Encounter for observation for suspected exposure to other biological agents ruled out
CPT/HCPCS: 0241U; 71046; 74176; 80053; 83735; 85025; 93005; 96360; 99284; 99285

== ENCOUNTER → 2024-10-09 13:37 | Outpatient (BNV) | payer MEDICARE, SELFPAY | PROVIDERS: PCP Internal Medicine; Visit Provider Radiology Diagnostic Radiology | DX: R53.1 Weakness (principal) | CPT/HCPCS: 71046; 74176 ==

== ENCOUNTER → 2024-10-09 13:41 | Outpatient (BNV) | payer MEDICARE, SELFPAY | PROVIDERS: Emergency Provider Internal Medicine; PCP Internal Medicine; Visit Provider Internal Medicine | DX: R94.31 Abnormal electrocardiogram [ECG] [EKG] (principal); E83.52 Hypercalcemia | CPT/HCPCS: 93010 ==

== ENCOUNTER 2024-11-02 12:00 | Emergency (ER) | payer MEDICARE, SELFPAY ==
--- NOTE | ~2024-11-02 | XR_ITS ---
EXAMINATION: XR WRIST, LEFT CLINICAL INFORMATION: fall, swelling COMPARISON: January 13, 2024. TECHNIQUE: PA, lateral, and oblique views of the left wrist. FINDINGS: Sclerosis marginal osteophyte formation and subchondral cyst formation with asymmetric joint space narrowing involving the first and second row the carpal bones the radiocarpal joint and the first and second carpometacarpal joints. No acute cortical disruption or gross malalignment. Focal calcification in the dorsal aspect of the carpal bones. XR/XR wrist LT min 3V IMPRESSION: Severe osteoarthrosis without acute fracture or dislocation. Electronically signed by: Abdullahi Banks MD 11/02/2024 02:04 PM EDT
--- NOTE | ~2024-11-02 | XR_ITS ---
CLINICAL HISTORY: pain, trauma --- Additional Notes or Special Instructions: [facility] @ 1828 DG, transport busy will reach out when they can bring pt 1839 DG 7 view, pelvis and bilateral hip Comparison: None Findings: No acute fracture or dislocation. Periarticular osteophyte formation at the bilateral hip joints. The soft tissues are unremarkable. IMPRESSION: No acute findings. This document has been electronically signed by: Delroy Anton MD on 11/03/2024 20:23:56
--- NOTE | ~2024-11-02 | CT_ITS ---
EXAMINATION: CT CERVICAL SPINE WITHOUT CONTRAST CLINICAL INFORMATION: Trauma, neck pain. COMPARISON: 09/11/2024. TECHNIQUE: Spiral CT imaging of the cervical spine performed in axial plane without contrast. Multiplanar reformatted images were constructed from the axial data set. This CT examination was performed using dose optimization techniques as appropriate, variously including the following: *Automated exposure control *Adjustment of mA and/or kV according to patient size (this includes techniques or standardized protocols for targeted exams where dose is matched to indication/reason for exam; i.e. extremities or head) *Use of iterative reconstruction technique FINDINGS: CORONAL ALIGNMENT: -Normal. SAGITTAL ALIGNMENT: -Minimal straightening of the normal lordosis. -No subluxations identified. C1-C2 AND CRANIOCERVICAL JUNCTION: -Intact and normally aligned. There are degenerative changes in the atlantoaxial joint. VERTEBRAL BODIES AND FACETS: -There has been prior anterior and posterior fusion of C6-7. There is bony fusion through the disc space. There are lateral mass screws bilaterally which appear well seated without loosening. -There has been associated laminectomy at C5-6. -There is no definite fracture, compression deformity, or traumatic subluxation. -There is normal facet alignment allowing for postsurgical changes. There are severe left and moderate right hypertrophic degenerative facet changes spanning C2-C6. 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 DISCS: -Moderate disc degeneration present C4-5, with severe changes C5-6. -Mild disc degeneration C2-3 and C3-4. CENTRAL CANAL: -No evidence of high-grade central canal narrowing or large disc herniation allowing for modality limitations. -There is moderate central canal stenosis at C5-6 and C6-7. PREVERTEBRAL AND PARAVERTEBRAL SOFT TISSUES: -No prevertebral or paravertebral soft tissue swelling or fluid collection. -There are bilateral right greater than left carotid bulb calcifications. -There is global enlargement of the thyroid, with subtle poorly defined nodules present. This appears stable from prior exams. Imaged lung apices demonstrate no evidence of pneumothorax. -There are mild changes of apical lung parenchymal scarring and calcification. OTHER: -Severe left greater than right TM joint degenerative changes. CT/CT cervical spine wo IV con IMPRESSION: 1. No CT evidence of acute cervical spine fracture or injury. 2. Prior posterior and anterior fusion of C6-7. No hardware loosening or complication. 3. Prior laminectomies at C5-6. 4. 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 There is at least moderate central canal stenosis at C5-6 and C6-7. 5. There is multinodular goiter, unchanged from several prior exams. Electronically signed by: Bradley Johnson MD 11/02/2024 03:28 PM EDT
--- NOTE | ~2024-11-02 | XR_ITS ---
EXAMINATION: XR FOREARM, LEFT CLINICAL INFORMATION: fall/swelling COMPARISON: None available. TECHNIQUE: AP and lateral views of the left forearm were obtained. FINDINGS: No acute cortical disruption. No lytic or blastic lesions. Severe degenerative changes in the carpal bones and greater carpal ulnar joints XR/XR forearm LT 2V IMPRESSION: No acute fracture. Severe osteoarthrosis, left wrist. Electronically signed by: Abdullahi Banks MD 11/02/2024 02:04 PM EDT
--- NOTE | ~2024-11-02 | CT_ITS ---
EXAMINATION: CT HEAD WITHOUT CONTRAST CLINICAL INFORMATION: Head trauma. COMPARISON: 09/11/2024. TECHNIQUE: Contiguous axial imaging was performed from the skull base to vertex without intravenous administration of contrast. This CT examination was performed using dose optimization techniques as appropriate, variously including the following: *Automated exposure control *Adjustment of mA and/or kV according to patient size (this includes techniques or standardized protocols for targeted exams where dose is matched to indication/reason for exam; i.e. extremities or head) *Use of iterative reconstruction technique FINDINGS: There is no evidence of intracranial hemorrhage or extra-axial fluid collection. There is no mass effect, or edema. No CT evidence of acute territorial infarct. Ventricles, sulci, and cisterns are mildly diffusely prominent in keeping with mildly age advanced cerebral and cerebellar involutional changes. No hydrocephalus. No midline shift. Negative hyperdense MCA sign. Negative insular ribbon sign. Patchy periventricular and deep white matter hypoattenuation is consistent with mild to moderate small vessel ischemic changes. Normal pituitary. Mild atheromatous calcification of the bilateral carotid siphons. There are mild falcine calcifications. Globes and orbital contents image normally. Extracranial soft tissues demonstrate a small left inferior frontal scalp hematoma. Tiny air-fluid level left maxillary sinus. The paranasal sinuses, mastoid air cells, and tympanic cavities are otherwise normally aerated. No suspicious bony abnormalities. There are no acute fractures evident. CT/CT head/brain wo IV con IMPRESSION: 1. No acute intracranial abnormality. No fractures seen. 2. Small left inferior frontal scalp hematoma. Electronically signed by: Bradley Johnson MD 11/02/2024 03:17 PM EDT
[2024-11-02 12:14] VITALS: BP 110/70; BP 112/58; PULSE 77; PULSE 86; RESP 16; TEMP 36.7; O2SAT 96; BMI 26.7
--- NOTE | 2024-11-02 14:29 | ED_ITS ---
HPI - General Adult General Chief complaint: Fall Stated complaint: UNWIT FALL/UNK DOWN TIME,-THIN,L HAND ABRASION Time Seen by Provider: 11/02/24 14:10 Source: patient, family (Daughter and HCP) and EMS Mode of arrival: EMS Limitations: no limitations History of Present Illness ED Provider: DR. Kaye HPI narrative: A 79-year-old female was PMH of insomnia, depression, and hypertension patient lives home with her daughter, patient was home alone found by her daughter on the carpeted floor at home, patient do not remember how she fell or for how long has she been on the floor. Patient noted to have contusion and blister on her left wrist area, old left forehead ecchymosis from an old fall couple months ago. Complain of left hand/left wrist pain, otherwise has no complaints currently. Not taking anticoagulation. Related Data Home Medications ?Medication ?Instructions ?Recorded ?Confirmed cholecalciferol (vitamin D3) 50 50 mcg PO DAILY 09/12/24 11/03/24 mcg (2,000 unit) capsule donepezil 5 mg tablet 5 mg PO BEDTIME 09/12/24 11/03/24 mirtazapine 7.5 mg tablet 7.5 mg PO BEDTIME 09/12/24 11/03/24 gabapentin 100 mg capsule 100 mg PO BEDTIME 11/03/24 11/03/24 Previous Rx's ?Medication ?Instructions ?Recorded oxycodone 5 mg tablet 5 mg PO BID PRN severe pain (scale 11/04/24 score 7-10) #6 tabs Allergies Allergy/AdvReac Type Severity Reaction Status Date / Time codeine [CODEINE] Allergy Unknown UNKNOWN Verified 11/02/24 12:17 diphenhydramine Allergy Unknown NAUSEA Verified 11/02/24 12:17 [From BENADRYL] Review of Systems 2 Review of Systems: All other systems are reviewed and are negative Constitutional: Reports as per HPI and Reports no additional constitutional complaints Eyes: Reports as per HPI and Reports no additional eye complaints Reports system reviewed and no additional complaints, except as documented Cardiovascular: Reports as per HPI and Reports no additional cardiovascular complaints Respiratory: Reports as per HPI and Reports no additional respiratory complaints Gastrointestinal: Reports as per HPI and Reports no additional gastrointestinal complaints Genitourinary: Reports no additional female genitourinary complaints Musculoskeletal: Reports no additional musculoskeletal complaints Skin/Breast: Reports system reviewed and no additional complaints, except as docu Psychiatric: Reports no additional psychiatric complaints Endocrine: Reports no additional endocrine complaints Hematologic/Lymphatic: Reports no additional hematologic/lymphatic complaints Allergic/Immunologic: Reports no additional allergic/immunologic complaints Reports system reviewed and no additional complaints, except as documented and Reports Abnormal speech present [facility] Past Medical History Medical History Elevated liver enzymes Insomnia Depression Hypertension Surgical History History of carpal tunnel surgery H/O neck surgery Social History Social History Household Members: None Housing: House Do you presently have visiting nurse or other home services: No (no but daughter requesting to talk to someone) Unable to assess alcohol history related to: Unknown Comment: refuse to put non-skid yellow socks Patient Tobacco Use Status: Never used Tobacco Smoked in Last 30 Days: No Use of substances other than those prescribed or required for medical reasons: No Advance Directives: Yes Advance Directives on File: Yes Advance Directives Date on File: 09/16/24 service: No Physical Exam ED Vital Signs: Vital Signs - 24 hr 11/03/24 14:00 11/03/24 20:01 11/04/24 04:51 Temperature 98.3 F 98.2 F 97.9 F Pulse Rate 72 76 72 Respiratory Rate 18 20 18 Blood Pressure 101/58 L 119/69 123/77 Pulse Oximetry 96 94 98 Oxygen Delivery Method Room Air Room Air Room Air 11/04/24 07:22 11/04/24 10:10 Temperature 98.2 F 98.6 F Pulse Rate 79 80 Respiratory Rate 16 18 Blood Pressure 119/72 131/80 Pulse Oximetry 95 96 Oxygen Delivery Method Room Air Room Air BMI result Body Mass Index 26.7 Vital signs have been reviewed and appear to be correct. Blood pressure elevated. Heart rate normal. Respiratory rate normal. Temperature normal. Oxygen saturation normal. Appearance: Alert. Oriented X3. No acute distress. Head: Normal external exam. Normocephalic. Atraumatic. No Brennan signs noted. No raccoon eyes noted Eyes: PERRLA. EOMI. Conjunctiva and sclera normal. Eyelids normal. ENT: TM's Normal. Pharynx normal. Uvula midline. Moist mucous membranes. No trismus noted. No drooling noted. No muffled voice noted. Neck: Normal inspection. Neck supple. FROM. No adenopathy. Thyroid Normal. No meningeal signs. No neck mass noted. CVS: Normal heart rate and rhythm. Heart sound normal. No murmurs noted. Pulses normal throughout. Respiratory: No respiratory distress. Painless inspiration. Breath sounds normal. No wheezes/rales/rhonchi noted. Chest nontender. No accessory muscle usage noted or decreased air movement noted. Abdomen: Soft and nontender. Bowel sounds normal in all 4 quadrants. No distention noted. No organomegaly noted. No visible injury noted. Back: No CVA tenderness. Full range of motion noted. Skin: Skin warm and dry. Normal skin color. Normal skin turgor. No rashes/lesions/lacerations noted. Extremities: No lower extremity edema. Extremities exhibit normal range of motion. Extremities nontender. Neuro: Oriented X 3. Cranial nerve exam: II-XII are grossly intact No motor deficit. No sensory deficit. Reflexes normal. Course Course Course Narrative: 11/03/2024 0854 Светлана Ortiz PA-C ---> Observation continues. Informed by RN patient is having pain with no PRN medication. PRN pain medication ordered. Patient continues to be followed by case management. Reevaluation(s) Reevaluation #1: Daughter at the bedside she also healthcare proxy patient is DNR/DNI. Will keep the patient for case management and rehab placement will need PT evaluation in the morning. Will start the physician observation. Time: 19:50 Reevaluation #2: In a call from [facility], the patient is in extreme pain within the pelvic region, imaging was not obtained, we will order now Time: 18:25 Reevaluation #3: 11/04 @ 10:34 - physician observation continued overnight. imaging reviewed - no acute fx on radiology reads done on 11/02 and 11/03. has gotten a couple doses of oxycodone that is ordered PRN. she has been seen by PT and case mangement found placement in [facility] today. Her VS are stable. She does not require medical admission. she is stable for discharge to acute rehab. physician observation discontinued at this time. Gracie Raygoza PA-C Time: 10:34 Medications Administered Generic Name Dose Route Start Last Admin Trade Name Freq PRN Reason Stop Dose Admin Oxycodone HCl 5 mg 11/03/24 08:56 11/04/24 04:55 Oxycodone Hcl Immed Release 5 Mg Tablet PO 5 mg Q6H PRN Administration Pain, Moderate(Pain Scale 4-6) Medical Decision Making Differential Diagnosis Differential Diagnoses: The differential diagnosis associated with the presentation includes (Cervical spine injury, intracranial bleed, left wrist fracture, left forearm fracture, electrolyte derangement, severe anemia.) Lab Data MDM Lab Attestation statement: I reviewed the patient's lab results. 11/02/24 15:32 11/02/24 15:32 Labs: Lab Results 11/02/24 Range/Units 15:32 WBC 6.6 (4.8-10.8) X10*3/uL RBC 4.15 L (4.20-5.50) X10*6/uL Hgb 13.3 (12.0-16.0) g/dl Hct 39.2 (37.0-47.0) % MCV 94.5 (80.0-98.0) fL MCH 32.0 (27.0-33.0) pg MCHC 33.9 (31.0-35.0) g/dl RDW 14.0 (11.0-16.0) % Plt Count 164 D (160-400) X10*3/uL MPV 10.8 (9.4-12.3) fL Immature Gran % (Auto) 0.5 H (0.0-0.4) % Neut % (Auto) 78.7 H (45-73) % Lymph % (Auto) 9.3 L (20-40) % Weston % (Auto) 11.0 (2-11) % Eos % (Auto) 0.0 (0-4) % Baso % (Auto) 0.5 (0-2) % Lymph # (Auto) 0.6 L (1.2-4.9) X10*3/uL Weston # (Auto) 0.7 (0.1-1.2) X10*3/uL Eos # (Auto) 0.0 (0.0-0.4) X10*3/uL Baso # (Auto) 0.0 (0.0-0.2) X10*3/uL Abs Immat Gran (auto) 0.03 (0.00-0.03) X10*3/uL Absolute Neuts (auto) 5.2 (2.0-8.3) x10*3/uL Absolute Nucleated RBC 0.000 (0.0-0.012) X10*3/uL Nucleated RBC % (auto) 0.0 (0.0-0.2) /100WBC Sodium 142 (135-145) mmol/L Potassium 3.8 (3.3-5.1) mmol/L Chloride 109 H (96-108) mmol/L Carbon Dioxide 25 (22-29) mmol/L Anion Gap 12 (12-20) BUN 10 (9-16) mg/dL Creatinine 0.57 (0.5-1.4) mg/dL Estim Creat Clear Calc 76.7 Estimated GFR > 60 Random Glucose 115 (60-115) mg/dL Calcium 9.9 D (8.4-10.2) mg/dL Total Bilirubin 0.7 (0.0-1.0) mg/dL AST 38 H (5-31) U/L ALT 21 (0-31) U/L Alkaline Phosphatase 49 (39-117) U/L Total Creatine Kinase 373 H (26-140) U/L Total Protein 6.4 L (6.5-8.0) g/dL Albumin 3.4 L (3.5-5.0) g/dL Independent Interpretation I performed an independent interpretation of an: Plain X-Ray (Left wrist/left forearm: No acute fracture or dislocation.) and CT Scan (Head/C-spine: No acute findings.) Radiology Impression Discussion of test interpretation with radiology: I have reviewed the radiologist's reading. Discharge Plan Discharge Clinical Impression: Adult failure to thrive Accident due to mechanical fall without injury Qualifiers: Encounter type: initial encounter Qualified Code(s): W19.XXXA - Unspecified fall, initial encounter Patient Disposition: Xfer Inpatient Rehab Fac Transfer Details: [address], Instructions: Fall Prevention for Older Adults (ED) Additional Instructions: your xrays and CT scans did not show any acute fractures recommend tylenol for mild to moderate pain take the prescribed oxycodone for severe pain only follow up with your doctor If you develop new or worsening symptoms call 911 or come back to the ER for further evaluation. Prescriptions: New oxycodone 5 mg tablet 5 mg PO BID PRN (Reason: severe pain (scale score 7-10)) Qty: 6 0RF Rx Instructions: Partial Fill upon patient request. No Action donepezil 5 mg tablet 5 mg PO BEDTIME mirtazapine 7.5 mg tablet 7.5 mg PO BEDTIME cholecalciferol (vitamin D3) 50 mcg (2,000 unit) capsule 50 mcg PO DAILY gabapentin 100 mg capsule 100 mg PO BEDTIME Referrals: [facility] [Other] Tamra Jerry MD [Primary Care Provider] - Print Language: Unable To Collect
--- OUTSIDE RECORDS SUMMARY | 2024-11-02 14:52 | XMS_ITS | Encounter Summary ---
Author Organization [facility] Address [address] [place] [address] Care Team Providers Care Power Shear Operator Name Role Phone Tamra Jerry MD Primary Care Provider [phone] Reason for Visit * Reason Comments Weight Loss * Consultation (Routine) - Authorized Specialty Diagnoses / Procedures Referred By Kwadwo aguayo Referred To Contact Gastroenterology Diagnoses Weight loss Tamra Jerry MD [address] [place] [address] Phone: tel: fax: Gastroenterology - [place] [address] [address] Phone: tel: fax: Referral ID Status Reason Start Date Expiration Date Visits Requested Visits Authorized [id number] Authorized Specialty Services Required 10/08/2024 10/08/2025 1 1 Encounter Details Date Type Department Care Team (Late st Contact Info) Description 10/30/2024 11:20 AM EDT Consult Gastroenterology [facility] 175 [facility] [address] [address] Alba Herrera NP [address] [phone] Weight loss (Primary Dx); Poor appetite Social History Tobacco Use Types Packs/Day Years [...] Sign Reading Time Taken Comments Blood Pressure 100/66 10/30/2024 11:26 AM EDT Pulse 79 10/30/2024 11:26 AM EDT Temperature - - Respiratory Rate - - Oxygen Saturation 98% 10/30/2024 11:26 AM EDT Inhaled Oxygen Concentration - - Weight 63 kg (139 lb) 10/30/2024 11:26 AM EDT Height 160 cm (5' 3 ) 10/30/2024 11:26 AM EDT Body Mass Index 24.62 10/30/2024 11:26 AM EDT documented in this encounter Progress Notes * Alba Herrera NP - 10/30/2024 11:20 AM EDT CONSULT REQUEST CHIEF COMPLAINT: Weight Loss HPI: Stefania Hull is a 79 y.o. old female whose PMH includes arthritis of left sacroiliac joint, cervical spinal stenosis, depression, hyperparathyroidism, hypertension, insomnia, lumbosacral strain, memory impairment, microalbuminuria, multiple thyroid nodules, obesity, osteoarthritis of left knee, prediabetes, vitamin D deficiency, white matter abnormality on MRI of brain and history of breast cancer was referred by Tamra Jerry MD to the gastroenterology department today for evaluation of weight loss. Patient is accompanied by her daughter during this visit. She has memory impairment/possible Alzheimer's and she is unable to provide HPI. She is uses a walker for ambulation. Patient's daughter reports approximate weight loss of 40 pounds since August. She reports patient's issues commenced with history of multiple falls with chronic back pain. She also has a history ofrhabdomyolysis after fall at home requiring hospital admission and rehab x 2 weeks. She reports hermother has a poor appetite. She is refusing to eat. She has enough food resources but she chooses not to eat. She is encouraging her to drink protein shakes. She is taking mirtazapine. She was seen at [facility] on 10/08/2024. Chest x- ray and CT abdomen of the pelvis were completed which were unremarkable. I have no records on file to verify. Patient's daughter reports she has not observed any nausea, vomiting, signs of dysphagia, abdominal pain, constipation, diarrhea, melena or hematochezia. History of a colonoscopy in 2008. She was scheduled for colonoscopy in 2019. According to records, she was not interested. No historical EGD on file. Per patient's daughter, chest x-ray and CT abdomen/pelvis completed earlier this month at [facility], they were unremarkable. No records on file to verify. ROS: GENERAL: Weight loss HEENT: No changes in hearing or vision, nose bleeds or swallowing problems NECK: No lumps, goiter, pain or significant neck swelling CARDIOVASCULAR: No chest pain GI: See HPI MUSCULOSKELETAL: Chronic back pain SKIN: No lesions, rash or itching PAST MEDICAL HISTORY: Patient Active Problem List Diagnosis Arthritis of left sacroiliac joint (CMS/HCC V24) Cervical spinal stenosis Depression Hyperparathyroidism (CMS/HCC V24) Hypertension Insomnia Lumbosacral strain Memory impairment Microalbuminuria Multiple thyroid nodules Obesity (BMI 30-39.9) Osteoarthritis of left knee Prediabetes Vitamin D deficiency White matter abnormality on MRI of brain History of breast cancer PAST SURGICAL HISTORY: Past Surgical History: Procedure Laterality Date BREAST BIOPSY : 2012 LT BREAST BX-BENIGN BREAST BIOPSY : 2007-DCIS CHOLECYSTECTOMY COLONOSCOPY 09/13/08 hemorrhoids and diverticulosis; repeat in ten years HYSTERECTOMY 1992 FRANCISCA BSO, endometriosis and fibroids NECK SURGERY SCREENING MAMMOGRAM Bilateral 09/26/2023 TOTAL KNEE ARTHROPLASTY Bilateral SOCIAL HISTORY: Social History Tobacco Use Smoking status: Never Smokeless tobacco: Never Substance Use Topics Alcohol use: No Drug use: No FAMILY HISTORY: Family History Problem Relation Name Age of Onset Breast cancer Neg Hx MEDICATIONS: Outpatient Medications Marked as Taking for the 10/30/24 encounter (Consult) with Alba Herrera NP Medication Sig Dispense Refill cholecalciferol (VITAMIN D-3) 50 mcg (2,000 unit) capsule TAKE 1 CAPSULE BY MOUTH EVERY DAY 90 capsule 1 donepeziL (ARICEPT) 5 mg tablet TAKE 1 TABLET BY MOUTH EVERY DAY AT BEDTIME FOR 90 DAYS gabapentin (NEURONTIN) 100 mg capsule Take 1 capsule (100 mg total) by mouth at bedtime. 90 each 1 mirtazapine (REMERON) 7.5 mg tablet TAKE 1 TABLET BY MOUTH EVERY DAY AT BEDTIME FOR 90 DAYS ALLERGIES: Allergies Allergen Reactions Anastrozole Counteracting antidepressants Hair loss Anti-Itch Itching Codeine GI upset Prednisone vitreous leaking Zolpidem nausea PHYSICAL EXAM: Visit Vitals BP 100/66 (BP Location: Left arm, Patient Position: Sitting) Pulse 79 Ht 1.6 m (63 ) Wt 63 kg (139 lb) SpO2 98% BMI 24.62 kg/m?? OB Status Postmenopausal Smoking Status Never BSA 1.66 m?? APPEARANCE: Alert and in no acute distress EYES: Conjunctiva and sclera normal. MOUTH/THROAT: No erythema, exudates or lesions noted NECK: Neck supple, no adenopathy HEART: RRR with normal S1 and S2 LUNG: clear to auscultation ABDOMEN: soft non tender, no ascites, guarding, or rebound. RECTAL: Exam deferred NEURO: Awake and alert LABS: Lab Results Component Value Date WBC 9.1 09/28/2024 HGB 14.0 09/28/2024 HCT 42.2 09/28/2024 MCV 95.5 09/28/2024 PLT 282 09/28/2024 Lab Results Component Value Date ALT 30 10/08/2024 AST 28 10/08/2024 ALKPHOS 73 10/08/2024 BILITOT 1.2 10/08/2024 IMAGING: No results found for this or any previous visit from the past 365 days. IMPRESSION: 1. Weight loss 2. Poor appetite PLAN: Stefania Hull is a 79 y.o. old female whose PMH includes arthritis of left sacroiliac joint, cervical spinal stenosis, depression, hyperparathyroidism, hypertension, insomnia, lumbosacral strain, memory impairment, microalbuminuria, multiple thyroid nodules, obesity, osteoarthritis of left knee, prediabetes, vitamin D deficiency, white matter abnormality on MRI of brain and history of breast cancer presents for evaluation of weight loss. 1. Weight loss: Subjective weight loss of 40 pounds since August 2024. Weight loss appears multifactorial. Patient is refusing to eat. Consider ensures or boost supplements. Given patient's presentation, I recommend discussion for goals of care with your care team. Consider palliative care. I discussed diagnostic testing including EGD and colonoscopy which patients daughter agrees her mother is not a good candidate given multiple comorbidities. She has had a chest x-ray and abdominal CTscan at [place] in early October 2024 which was unremarkable. If persistent weight loss and continued food refusal, consider discussing tube feeding. 2. Poor appetite: Patient is refusing food. Take mirtazapine as directed. Follow-up as needed. Patient agrees with the above plan and understands the need to follow up as indicated. Please note, this note may have been created in part by using [employer] dictation software, and therefore, it may contain typographical and/or grammatical errors inherent in a voice recognition software program I would like to thank Tamra Jerry MD for the opportunity to partake in the patient's care. No orders of the defined types were placed in this encounter. AMB REFERRAL TO GASTROENTEROLOGY documented in this encounter Plan of Treatment Upcoming Encounters Date Type Department Care Team (Late st Contact Info) Description 11/13/2024 10:00 AM EDT Appointment Bone D[facility] - [place] [address] [place] [address] 11/19/2024 11:20 AM EDT Office Visit Endocrinology - [address] [phone] Indu Delcid PA [address] [place] [address] documented as of this encounter Visit Diagnoses Diagnosis Weight loss- Primary Loss of weight Poor appetite Anorexia documented in this encounter Orders Outpatient Referral Count Last Ordered Date st Ordered Date AMB REFERRAL TO GASTROENTEROLOGY 1 10/31/19 documented in this encounter Additional Health Concerns Assessment Noted Time PHQ-9 Depression Total Score: 0 08/24/19 10:42 AM EST A fall risk assessment has been complete d for the patient 08/24/2024 10:42 AM EST documented as of this encounter Care Teams Power Shear Operator Relationship Specialty Start Date End Date Tamra Jerry MD [address] [place] [id number] PCP - General Internal Medicine 04/27/21 documented as of this encounter
--- OUTSIDE RECORDS SUMMARY | 2024-11-02 14:52 | XMS_ITS | Encounter Summary ---
[facility] Organization [facility] Address [address] [place] [address] Care Team Providers Care Diesel Truck Driver Name Role Phone Tamra Jerry MD Primary Care Provider [phone] Encounter Details Date Type Department Care Team (Late Contact Info) Description 09/27/2024 Lab Requisition [facility] - Main Lab [address] [facility] [address] [place] [phone] Ronan Valencia MD [address] [place] [address] Heart failure, unspecified (CMS/HCC V24, CMS/HCC V28); Essential (primary) hypertension; Hyperlipidemia, unspecified Social History [...] 10:00 AM EDT Appointment Bone Density - [place] [phone] 11/19/2024 11:20 AM EDT Office Visit Endocrinology - [place] [address] [place], [place] [phone] Indu Delcid PA [address] [place] [address] documented as of this encounter Procedures Procedure [...] K/mcL LAB HEMETOLOGY METHOD 09/28/2024 12:[address] [facility] RBC 4.40 3.80 - 4.80 M/mcL LAB HEMETOLOGY METHOD 09/28/2024 12:[address] [facility] Hemoglobin 14.0 11.5 - 16.0 g/dL LAB HEMETOLOGY METHOD 09/28/2024 12:[address] [facility] Hematocrit 42.2 35.0 - 47.0 % LAB HEMETOLOGY METHOD 09/28/2024 12:[address] [facility] MCV 95.5 79.0 - 98.0 FL LAB HEMETOLOGY METHOD 09/28/2024 12:[address] [facility] MCH 31.7 27.0 - 32.0 pcg LAB HEMETOLOGY METHOD 09/28/2024 12:33 PM EDT [facility] MCHC 33.2 32.0 - 37.0 g/dL LAB HEMETOLOGY METHOD 09/28/2024 12:[address] [facility] RDW 14.2 11.0 - 15.0 % LAB HEMETOLOGY METHOD 09/28/2024 12:[address] [facility] Platelets 282 130 - 400 K/mcL LAB HEMETOLOGY METHOD 09/28/2024 12:[address] [facility] MPV 11.1(H) 7.0 - 11.0 FL LAB HEMETOLOGY METHOD 09/28/2024 12:[address] [facility] NRBC 0.0 <1.0 % LAB HEMETOLOGY METHOD 09/28/2024 12:[address] [facility] NRBC Absolute 0.00 <0.10 K/mcL LAB HEMETOLOGY METHOD 09/28/2024 12:[address] [facility] Neutrophils Relative 70.6 % LAB HEMETOLOGY METHOD 09/28/2024 12:[address] [facility] Lymphocytes Relative 16.8 % LAB HEMETOLOGY METHOD 09/28/2024 12:[address] [facility] Monocytes Relative 9.3 % LAB HEMETOLOGY METHOD 09/28/2024 12:[address] [facility] Eosinophils Relative 1.9 % LAB HEMETOLOGY METHOD 09/28/2024 12:[address] [facility] Basophils Relative 1.0 % LAB HEMETOLOGY METHOD 09/28/2024 12:[address] [facility] Immature Granulocytes Relative 0.4 % LAB HEMETOLOGY METHOD 09/28/2024 12:[address] [facility] Neutrophils Absolute 6.39 1.50 - 7.00 K/mcL LAB HEMETOLOGY METHOD 09/28/2024 12:33 PM EDT [facility] Lymphocytes Absolute 1.52 1.00 - 5.00 K/mcL LAB HEMETOLOGY METHOD 09/28/2024 12:33 PM EDT [facility] Monocytes Absolute 0.84 0.20 - 1.00 K/mcL LAB HEMETOLOGY METHOD 09/28/2024 12:33 PM EDT [facility] Eosinophils Absolute 0.17 0.00 - 0.50 K/[facility] LAB HEMETOLOGY METHOD 09/28/2024 12:33 PM EDT [facility] Basophils Absolute 0.09 0.00 - 0.20 K/[facility] LAB HEMETOLOGY METHOD 09/28/2024 12:33 PM EDT [facility] Immature Granulocytes Absolute 0.04(H) 0.00 - 0.03 K/[facility] LAB HEMETOLOGY METHOD 09/28/2024 12:33 PM EDT [facility] Blood Venous blood specimen / Unknown Venipuncture / Unknown 09/28/2024 6:45 AM EDT 09/28/2024 11:48 AM EDT us Ronan Valencia MD LAB BLOOD ORDERABLES Final Resu lt [facility] [address] [place] [address], * (ABNORMAL) Comprehensive metabolic panel (09/28/2024 6:45 AM EDT) Sodium 136 133 - 145 mmol/L LAB CHEMISTRY METHOD 09/28/2024 1:19 PM EDT [facility] Potassium 4.7 3.5 - 5.5 mmol/L LAB CHEMISTRY METHOD 09/28/2024 1:19 PM EDT [facility] Comment:Hemolysis present Chloride 103 96 - 110 mmol/L LAB CHEMISTRY METHOD 09/28/2024 1:[address] [facility] CO2 24 21 - 32 mmol/L LAB CHEMISTRY METHOD 09/28/2024 1:[address] [facility] Anion Gap 9 3 - 11 LAB CHEMISTRY METHOD 09/28/2024 1:[address] [facility] Glucose 98 70 - 100 mg/dL LAB CHEMISTRY METHOD 09/28/2024 1:[address] [facility] BUN 20 5 - 25 mg/dL LAB CHEMISTRY METHOD 09/28/2024 1:[address] [facility] Creatinine 0.66 0.50 - 1.10 mg/dL LAB CHEMISTRY METHOD 09/28/2024 1:[address] [facility] eGFR 90 >=60 mL/min/1. 73m2 LAB CHEMISTRY METHOD 09/28/2024 1:[address] [facility] Comment:Calculation based on the??Chronic Kidney Disease Epidemiology Collaboration (CKD-EPI) equation refit??without adjustment for race. BUN/Creatinine Ratio 30.3 LAB CHEMISTRY METHOD 09/28/2024 1:[address] [facility] Calcium 11.2(H) 8.5 - 10.5 mg/dL LAB CHEMISTRY METHOD 09/28/2024 1:[address] [facility] AST (SGOT) 36 10 - 42 unit/L LAB CHEMISTRY METHOD 09/28/2024 1:[address] [facility] Comment:Hemolysis present ALT (SGPT) 44 10 - 60 unit/L LAB CHEMISTRY METHOD 09/28/2024 1:[address] [facility] Alkaline Phosphatase 71 42 - 121 unit/L LAB CHEMISTRY METHOD 09/28/2024 1:[address] [facility] Total Protein 7.3 6.0 - 8.0 g/dL LAB CHEMISTRY METHOD 09/28/2024 1:[address] [facility] Albumin 3.6 3.2 - 5.0 g/dL LAB CHEMISTRY METHOD 09/28/2024 1:19 PM EDT [facility] Total Bilirubin 1.1 0.0 - 1.4 mg/dL LAB CHEMISTRY METHOD 09/28/2024 1:19 PM EDT [facility] Blood Venous blood specimen / Unknown Venipuncture / Unknown 09/28/2024 6:45 AM EDT 09/28/2024 11:48 AM EDT us Ronan Valencia MD LAB BLOOD ORDERABLES Final Resu lt [facility] [address] [place] [address], documented in this encounter Visit Diagnoses Diagnosis Heart failure, unspecified (CMS/HCC V24, CMS/HCC V28) Heart failure, unspecified Essential (primary) hypertension Unspecified essential hypertension Hyperlipidemia, unspecified documented in this encounter Additional Health Concerns Assessment Noted Time PHQ-9 Depression Total Score: 0 08/24/19 25 10:42 AM EST A fall risk assessment has been complete d for the patient 08/24/2024 10:42 AM EST documented as of this encounter Care Teams Diesel Truck Driver Relationship Specialty Start Date End Date Tamra Jerry MD [address] [place] [address] PCP - General Internal Medicine 04/27/21 documented as of this encounter
--- OUTSIDE RECORDS SUMMARY | 2024-11-02 14:52 | XMS_ITS | Clinical Summary ---
Author Organization [facility] Address [address] [place] [address] Phone Care Team Providers Care Life Management Teacher Name Role Phone Tamra Jerry MD Primary Care Provider [phone] Allergies Active Allergy Reactions Criticality Noted Date [...] each day. 90 tablet 1 5 Active Additional Information Patient not taking.Reported on 10/30/2024 lisinopriL (PRINIVIL,ZESTR IL) 20 mg tablet TAKE 1 TABLET BY MOUTH EVERY DAY 90 tablet 1 5 Active Additional Information Patient not taking.Reported on 10/30/2024 gabapentin (NEURONTIN) 100 mg capsule Take 1 capsule (100 mg total) by mouth at bedtime. 90 each 1 5 Active Active Problems Problem Noted Date Diagnosed Date Microalbuminuria 04/10/2024 Hyperparathyroidism ([facility] V24) 04/07/2024 White matter abnormality on MRI of brain 024 Overview (08/22/2024): Minimal white matter changes, likely a manifestation of chronic small vessel disease. Memory impairment 06/24/2023 Overview (08/22/2024): Prediabetes 05/23/2022 Arthritis of left sacroiliac joint ([facility] V24) 11/22/2021 Lumbosacral strain 11/22/2021 Obesity (BMI 30-39.9) [...] Encounters Date Type Department Care Team Description 10/30/2024 11:20 AM EDT Consult Gastroenterology - [place] [address] [place] [address] Alba Herrera NP Weight loss (Primary Dx); Poor appetite 10/29/2024 Billing Patient Not Present Adult [address] [phone] Tamra Jerry MD 10/27/2024 Telephone Adult [address] [phone] Tamra Jerry MD faxed order ([facility] order [id number]) 10/23/2024 Telephone Adult Medicine [address] [phone] Tamra Jerry MD Faxed order ([facility] order [id number]) 10/16/[address] [phone] Tamra Jerry MD Faxed Order 10/13/[address] [phone] Bina Liu [place] [facility] 10/12/[address] [phone] Tamra Jerry MD [facility] 10/08/2024 1:05 PM EDT - 10/08/2024 11:59 PM EDT Hospital Encounter [address] [phone] Sacral pain Discharge Disposition: Home or Self Care 10/08/2024 12:45 PM EDT Office Visit [address] [phone] Tamra Jerry MD Sacral pain (Primary Dx); Primary hypertension; Prediabetes; Traumatic rhabdomyolysis, subsequent encounter; Weight loss; Moderate dementia without behavioral disturbance, psychotic disturbance, mood disturbance, or anxiety, unspecified dementia type (CMS/HCC V24, CMS/HCC V28) 10/08/2024 Telephone Adult Medicine [address] [phone] Bailey Will RN 09/27/2024 Lab Requisition [facility] [address] [place] [phone] Ronan Valencia MD Heart failure, unspecified ([facility] V24, CMS/[facility] V28); Essential (primary) hypertension; Hyperlipidemia, unspecified 09/19/2024 Lab Requisition [facility] [address] [place] [phone] Ronan Valencia MD Essential (primary) hypertension; Rhabdomyolysis 09/18/2024 Lab Requisition [facility] [address] [place] [phone] Ronan Valencia MD Heart failure, unspecified (CMS/HCC V24, CMS/HCC V28); Essential (primary) hypertension; Hyperlipidemia, unspecified 09/16/2024 Lab Requisition [facility] [address] [place] [phone] Ronan Valencia MD Heart failure, unspecified ([facility] V24, CMS/[facility] V28); Essential (primary) hypertension; Hyperlipidemia, unspecified 08/24/2024 11:15 AM EST - 08/24/2024 11:59 PM EST Hospital Encounter [address] [phone] Right foot pain Discharge Disposition: Home or Self Care 08/24/2024 10:30 AM EST Office Visit Adult Medicine [address] [phone] Tamra Jerry MD Right foot pain (Primary Dx); Primary hypertension; Chronic left-sided low back pain without sciatica 08/12/2024 10:30 AM EST Consult [address] [phone] Chandan Paul MD Hyperparathyroidism (CMS/[facility] V24) (Primary Dx) 08/12/2024 Nurse Triage Adult Medicine [address] [phone] Tamra Jerry MD Toe Pain (Right Foot [...] 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 Depression 08/13/2019 Hyperparathyroidism (CMS/HCC V24) 04/07/2024 Memory impairment 06/24/2023 Multiple thyroid nodules [...] Pulse 79 10/30/2024 11:26 AM EDT Temperature 36.3 ??C (97.3 ??F) 10/08/2024 12:32 PM E DT Respiratory Rate 14 10/08/2024 12:32 PM EDT Oxygen Saturation 98% 10/30/2024 11:26 AM EDT Inhaled Oxygen Concentration - - Weight 63 kg (139 lb) 10/30/2024 11:26 AM EDT Height 160 cm (5' 3 ) 10/30/2024 11:26 AM EDT Body Mass Index 24.62 10/30/2024 11:26 AM EDT Plan of Treatment Upcoming Encounters Date Type Department Care Team (Late st Contact Info) Description 11/13/2024 10:00 AM EDT Appointment Bone Density - [place] [address] [place] [address] 11/19/2024 11:20 AM EDT Office Visit Endocrinology - [place] [address] [place] [address] Indu Delcid PA [address] [place], [place] Health Maintenance Due Date Last Done Comments Zoster Vaccines (1 of 2) 1997 Medicare Annual Wellness Visit 06/10/2022 Social Influencers of Health Screening 06/10/2022 RSV Immunization Adult Patients (1 - 1-dose 75+ series) 2022 COVID-19 Vaccine ( season) 2024 06/12/2021, 10/07/2020, 09/16/2020 Depression Screening [...] age to complete this topic Meningococcal B Vaccine Aged Out No l onger eligible based on patient's age to complete this topic RSV Immunization Patients Under 20 months Aged Out No longer eligible based on patient's age to complete this topic Varicella Vaccines Aged Out No longer eligible based on patient's age to complete this topic Procedures Procedure Name Priority Date/Time Associated Diagnosis Comments PARATHYROID HORMONE INTACT Routine 10/08/2024 1:39 PM EDT Hyperparathyroidism (CMS/HCC V24) PARATHYROID HORMONE RELATED PROTEIN Routine 10/08/2024 1:39 PM EDT Hyperparathyroidism (CMS/HCC V24) COMPREHENSIVE METABOLIC PANEL Routine 10/08/2024 1:39 PM [...] Health Maintenance Results * (ABNORMAL) Parathyroid hormone related protein (10/08/2024 1:39 PM EDT) [facility] PTH-related Protein (PTHrP) 9(L) 11 - 20 pg/mL 10/16/2024 4:37 PM EDT [facility] Comment: This is a C-terminal PTH-RP assay. PTH-RP is useful in the differential diagnosis of hypercalcemia and levels may be elevated in patients with tumor-associated hypercalcemia. Elevated results may also be observed in patients with renal disease. This test was developed and its analytical performance characteristics have been determined by [facility]. It has not been cleared or approved by the FDA. This assay has been validated pursuant to the CLIA regulations and is used for clinical purposes. Test Performed at: [facility] [address] [place], [place] ??[address] ? I Med MENCHACA, PhD, XI Blood Venous blood specimen / Unknown Venipuncture / Unknown 10/08/2024 1:39 PM EDT 10/08/2024 1:39 PM EDT us Chandan Paul MD LAB BLOOD ORDERABLES Final Resul t [facility] [address] [place] [address] * (ABNORMAL) Parathyroid hormone intact (10/08/2024 1:39 PM EDT) Pathologist [facility] PTH 147.1(H) 18.5 - 88.0 pcg/mL LAB CHEMISTRY METHOD 10/08/2024 5:45 PM EDT [facility] Blood Venous blood specimen / Unknown Venipuncture / Unknown 10/08/2024 1:39 PM EDT 10/08/2024 1:39 PM EDT Chandan Paul MD LAB BLOOD ORDERABLES Final Resul t Performing Organization Address City/[facility]/ZIP Co de Phone Number [facility] [address] [place] [address], [place] [phone] * Creatine kinase and CKMB (10/08/2024 1:39 PM EDT) [facility] Total CK 39 22 - 269 unit/L LAB CHEMISTRY METHOD 10/08/2024 5:11 PM EDT [facility] CK-MB 1.7 1.0 - 3.6 ng/mL LAB CHEMISTRY METHOD 10/08/2024 5:11 PM EDT [facility] CK-MB Index 0.0 0.0 - 5.0 LAB CHEMISTRY METHOD 10/08/2024 5:11 PM EDT [facility] Blood Venous blood specimen / Unknown Venipuncture / Unknown 10/08/2024 1:39 PM EDT 10/08/2024 1:39 PM EDT Tamra Jerry MD LAB BLOOD ORDERABLES Final Resul t Performing Organization Address [facility]/ZIP Co de Phone Number [facility] [address] [place] [address], [place] [phone] * (ABNORMAL) Comprehensive metabolic panel (10/08/2024 1:39 PM EDT) Only the most recent of4 resultswithin the time period is included. Sodium 138 133 - 145 mmol/L LAB CHEMISTRY METHOD 10/08/2024 5:11 PM [facility] Potassium 4.2 3.5 - 5.5 mmol/L LAB CHEMISTRY METHOD 10/08/2024 5:11 PM [facility] Chloride 104 96 - 110 mmol/L LAB CHEMISTRY METHOD 10/08/2024 5:11 PM [facility] CO2 21 21 - 32 mmol/L LAB CHEMISTRY METHOD 10/08/2024 5:11 PM [facility] Anion Gap 13(H) 3 - 11 LAB CHEMISTRY METHOD 10/08/2024 5:11 PM [facility] Glucose 119(H) 70 - 100 mg/dL LAB CHEMISTRY METHOD 10/08/2024 5:11 PM [facility] BUN 22 5 - 25 mg/dL LAB CHEMISTRY METHOD 10/08/2024 5:11 PM [facility] Creatinine 0.91 0.50 - 1.10 mg/dL LAB CHEMISTRY METHOD 10/08/2024 5:11 PM [facility] eGFR 65 >=60 mL/min/1. 73m2 LAB CHEMISTRY METHOD 10/08/2024 5:11 PM [facility] Comment:Calculation based on the??Chronic Kidney Disease Epidemiology Collaboration (CKD-EPI) equation refit??without adjustment for race. BUN/Creatinine Ratio 24.2 LAB CHEMISTRY METHOD 10/08/2024 5:11 PM [facility] Calcium 12.2(H) 8.5 - 10.5 mg/dL LAB CHEMISTRY METHOD 10/08/2024 5:11 PM [facility] AST (SGOT) 28 10 - 42 unit/L LAB CHEMISTRY METHOD 10/08/2024 5:11 PM [facility] ALT (SGPT) 30 10 - 60 unit/L LAB CHEMISTRY METHOD 10/08/2024 5:11 PM EDT [facility] Alkaline Phosphatase 73 42 - 121 unit/L LAB CHEMISTRY METHOD 10/08/2024 5:11 PM EDT [facility] Total Protein 7.7 6.0 - 8.0 g/dL LAB CHEMISTRY METHOD 10/08/2024 5:11 PM EDT [facility] Albumin 4.3 3.2 - 5.0 g/dL LAB CHEMISTRY METHOD 10/08/2024 5:11 PM EDT [facility] Total Bilirubin 1.2 0.0 - 1.4 mg/dL LAB CHEMISTRY METHOD 10/08/2024 5:11 PM EDT [facility] Blood Venous blood specimen / Unknown Venipuncture / Unknown 10/08/2024 1:39 PM EDT 10/08/2024 1:39 PM EDT us Tamra Jerry MD LAB BLOOD ORDERABLES Final Resul t [facility] [address] [place] [address], * XR Sacrum Coccyx 2+ Views (10/08/2024 [...] Signed Date: 10/08/2024 17:01 ET Workstation ID: [id number] Transcribed By: Self Edit Transcribed Date: 10/08/2024 [...] Signed Date: 10/08/2024 17:01 ET Workstation ID: [id number] Transcribed By: Self Edit Transcribed Date: 10/08/2024 16:57 ET Tamra Jerry MD IMG XR PROCEDURES Final Result * (ABNORMAL) CBC auto differential (09/28/2024 6:45 AM EDT) Only the most recent of2 resultswithin the time period is included. [facility] WBC 9.1 4.8 - 10.8 K/[facility] LAB HEMETOLOGY METHOD 09/28/2024 12:33 PM EDT [facility] RBC 4.40 3.80 - 4.80 M/[facility] LAB HEMETOLOGY METHOD 09/28/2024 12:33 PM EDT [facility] Hemoglobin 14.0 11.5 - 16.0 g/dL LAB HEMETOLOGY METHOD 09/28/2024 12:33 PM [facility] Hematocrit 42.2 35.0 - 47.0 % LAB HEMETOLOGY METHOD 09/28/2024 12:33 PM [facility] MCV 95.5 79.0 - 98.0 FL LAB HEMETOLOGY METHOD 09/28/2024 12:33 PM [facility] MCH 31.7 27.0 - 32.0 pcg LAB HEMETOLOGY METHOD 09/28/2024 12:33 PM [facility] MCHC 33.2 32.0 - 37.0 g/dL LAB HEMETOLOGY METHOD 09/28/2024 12:33 PM [facility] RDW 14.2 11.0 - 15.0 % LAB HEMETOLOGY METHOD 09/28/2024 12:33 PM [facility] Platelets 282 130 - 400 K/mcL LAB HEMETOLOGY METHOD 09/28/2024 12:33 PM [facility] MPV 11.1(H) 7.0 - 11.0 FL LAB HEMETOLOGY METHOD 09/28/2024 12:33 PM [facility] NRBC 0.0 <1.0 % LAB HEMETOLOGY METHOD 09/28/2024 12:33 PM [facility] NRBC Absolute 0.00 <0.10 K/mcL LAB HEMETOLOGY METHOD 09/28/2024 12:33 PM [facility] Neutrophils Relative 70.6 % LAB HEMETOLOGY METHOD 09/28/2024 12:33 PM [facility] Lymphocytes Relative 16.8 % LAB HEMETOLOGY METHOD 09/28/2024 12:33 PM EDT [facility] Monocytes Relative 9.3 % LAB HEMETOLOGY METHOD 09/28/2024 12:33 PM EDT [facility] Eosinophils Relative 1.9 % LAB HEMETOLOGY METHOD 09/28/2024 12:33 PM [facility] Basophils Relative 1.0 % LAB HEMETOLOGY [facility] Immature Granulocytes Relative 0.4 % LAB HEMETOLOGY METHOD 09/28/2024 12:33 PM EDT [facility] Neutrophils Absolute 6.39 1.50 - 7.00 K/mcL LAB HEMETOLOGY METHOD 09/28/2024 12:33 PM [facility] Lymphocytes Absolute 1.52 1.00 - 5.00 K/mcL LAB HEMETOLOGY METHOD 09/28/2024 12:33 PM [facility] Monocytes Absolute 0.84 0.20 - 1.00 K/mcL LAB HEMETOLOGY METHOD [facility]/28[facility]24 [facility] Eosinophils Absolute 0.17 0.00 - 0.50 K/mcL LAB HEMETOLOGY METHOD 09/28/2024 12:33 PM [facility] Basophils Absolute 0.09 0.00 - 0.20 K/mcL LAB HEMETOLOGY METHOD 09/28/2024 12:33 PM [facility] Immature Granulocytes Absolute 0.04(H) 0.00 - 0.03 K/mcL LAB HEMETOLOGY METHOD 09/28/2024 12:33 PM [facility] Blood Venous blood specimen / Unknown Venipuncture / Unknown 09/28/2024 6:45 AM EDT 09/28/2024 11:48 AM EDT us Ronan Valencia MD LAB BLOOD ORDERABLES Final Resu lt [facility] [address] [place] [address], * (ABNORMAL) Complete blood count (09/19/2024 7:08 AM EDT) [facility] WBC 7.0 4.8 - 10.8 K/mcL LAB HEMETOLOGY METHOD 09/19/2024 12:32 PM EDT [facility] RBC 4.30 3.80 - 4.80 M/mcL LAB HEMETOLOGY METHOD 09/19/2024 12:32 PM EDT [facility] Hemoglobin 13.5 11.5 - 16.0 g/dL LAB HEMETOLOGY METHOD 09/19/2024 12:32 PM EDT [facility] Hematocrit 41.1 35.0 - 47.0 % LAB HEMETOLOGY METHOD 09/19/2024 12:32 PM EDT [facility] MCV 96.3 79.0 - 98.0 FL LAB HEMETOLOGY METHOD 09/19/2024 12:32 PM EDT [facility] MCH 31.6 27.0 - 32.0 pcg LAB HEMETOLOGY METHOD 09/19/2024 12:32 PM EDT [facility] MCHC 32.8 32.0 - 37.0 g/dL LAB HEMETOLOGY METHOD 09/19/2024 12:32 PM EDT [facility] RDW 14.0 11.0 - 15.0 % LAB HEMETOLOGY METHOD 09/19/2024 12:32 PM EDT [facility] Platelets 205 130 - 400 K/mcL LAB HEMETOLOGY METHOD 09/19/2024 12:32 PM EDT [facility] MPV 11.2(H) 7.0 - 11.0 FL LAB HEMETOLOGY METHOD 09/19/2024 12:32 PM EDT [facility] NRBC 0.0 <1.0 % LAB HEMETOLOGY METHOD 09/19/2024 12:32 PM EDT [facility] NRBC Absolute 0.00 <0.10 K/mcL LAB HEMETOLOGY METHOD 09/19/2024 12:32 PM EDT [facility] Blood Venous blood specimen / Unknown Venipuncture / Unknown 09/19/2024 7:08 AM EDT 09/19/2024 11:34 AM EDT us Ronan Valencia MD LAB BLOOD ORDERABLES Final Resu lt [facility] [address] [place] [address], [place] [phone] * XR Foot 3+ Views Right (08/24/2024 [...] Signed Date: 08/24/2024 11:43 ET Workstation ID: [id number] Transcribed By: Self Edit Transcribed Date: 08/24/2024 [...] Signed Date: 08/24/2024 11:43 ET Workstation ID: [id number] Transcribed By: Self Edit Transcribed Date: 08/24/2024 [...] normal bone density by WHO criteria. [facility] Department of Internal Medicine recommends using [...] alternative screening schedule based on chiqui Pierce., [facility] July 26, 2011 for patients with [...] normal bone density by WHO criteria. [facility] Department of Internal Medicine recommendsusing National [...] alternative screening schedule based on chiqui Pierce., [place] 2011 for patients with osteopenia (based on [...] l Result * Hepatitis C Screening (04/15/2013) [facility] Hepatitis C Screening abstracted Historical Provider HEALTH MAINTENANCE Final Result from Last 3 Months or Most Recently Relevant to Health Maintenance Insurance [employer] Care Teams Life Management Teacher Relationship Specialty Start Date End Date Tamra Jerry MD [address] [place] [address] PCP - General Internal Medicine 04/27/21
--- OUTSIDE RECORDS SUMMARY | 2024-11-02 14:52 | XMS_ITS | Encounter Summary ---
[facility] Organization [facility] Address [address] [place] [address] Care Team Providers Care Cuff Setter Overlock Name Role Phone Tamra Jerry MD Primary Care Provider [phone] Encounter Details Date Type Department Care Team (Late Contact Info) Description 09/18/2024 Lab Requisition [facility] - Main Lab [address] [place] [phone] Ronan Valencia MD [address] [place] [address] Heart failure, unspecified (CMS/HCC V24, [...] 10:00 AM EDT Appointment Bone Density - [place] [address] 11/19/2024 11:20 AM EDT Office Visit Endocrinology - [place] [address] [place], [place] [phone] Indu Delcid PA [address] [place] [address] documented as of this encounter Procedures Procedure [...] K/mcL LAB HEMETOLOGY METHOD 09/21/2024 10:31 AM [facility] RBC 4.10 3.80 - 4.80 M/mcL LAB HEMETOLOGY METHOD 09/21/2024 10:31 AM [facility] Hemoglobin 12.9 11.5 - 16.0 g/dL LAB HEMETOLOGY METHOD 09/21/2024 10:31 AM [facility] Hematocrit 39.1 35.0 - 47.0 % LAB HEMETOLOGY METHOD 09/21/2024 10:31 AM [facility] MCV 96.1 79.0 - 98.0 FL LAB HEMETOLOGY METHOD 09/21/2024 10:31 AM [facility] MCH 31.7 27.0 - 32.0 pcg LAB HEMETOLOGY METHOD 09/21/2024 10:31 AM [facility] MCHC 33.0 32.0 - 37.0 g/dL LAB HEMETOLOGY METHOD 09/21/2024 10:31 AM [facility] RDW 14.1 11.0 - 15.0 % LAB HEMETOLOGY METHOD 09/21/2024 10:31 AM [facility] Platelets 218 130 - 400 K/mcL LAB HEMETOLOGY METHOD 09/21/2024 10:31 AM [facility] MPV 11.1(H) 7.0 - 11.0 FL LAB HEMETOLOGY METHOD 09/21/2024 10:31 AM [facility] NRBC 0.0 <1.0 % LAB HEMETOLOGY METHOD 09/21/2024 10:31 AM [facility] NRBC Absolute 0.00 <0.10 K/mcL LAB HEMETOLOGY METHOD 09/21/2024 10:31 AM [facility] Neutrophils Relative 59.8 % LAB HEMETOLOGY METHOD 09/21/2024 10:31 AM [facility] Lymphocytes Relative 23.9 % LAB HEMETOLOGY METHOD 09/21/2024 10:31 AM [facility] Monocytes Relative 9.6 % LAB HEMETOLOGY METHOD 09/21/2024 10:31 AM [facility] Eosinophils Relative 5.2 % LAB HEMETOLOGY METHOD 09/21/2024 10:31 AM [facility] Basophils Relative 0.8 % LAB HEMETOLOGY METHOD 09/21/2024 10:31 AM [facility] Immature Granulocytes Relative 0.7 % LAB HEMETOLOGY METHOD 09/21/2024 10:31 AM [facility] Neutrophils Absolute 4.53 1.50 - 7.00 K/mcL LAB HEMETOLOGY METHOD 09/21/2024 10:31 AM EDT [facility] Lymphocytes Absolute 1.81 1.00 - 5.00 K/mcL LAB HEMETOLOGY METHOD 09/21/2024 10:31 AM EDT [facility] Monocytes Absolute 0.73 0.20 - 1.00 K/mcL LAB HEMETOLOGY METHOD 09/21/2024 10:31 AM EDT [facility] Eosinophils Absolute 0.39 0.00 - 0.50 K/[facility] LAB HEMETOLOGY METHOD 09/21/2024 10:31 AM EDT [facility] Basophils Absolute 0.06 0.00 - 0.20 [facility] LAB HEMETOLOGY METHOD 09/21/2024 10:31 AM EDT [facility] Immature Granulocytes Absolute 0.05(H) 0.00 - 0.03 [facility] LAB HEMETOLOGY METHOD 09/21/2024 10:31 AM EDT [facility] Blood Venous blood specimen / Unknown Venipuncture / Unknown 09/21/2024 5:52 AM EDT 09/21/2024 10:06 AM EDT us Ronan Valencia MD LAB BLOOD ORDERABLES Final Resu lt [facility] [address] [place] [address], * (ABNORMAL) Comprehensive metabolic panel (09/21/2024 5:52 AM EDT) Sodium 138 133 - 145 mmol/L LAB CHEMISTRY METHOD 09/21/2024 10:48 AM EDT [facility] Potassium 3.7 3.5 - 5.5 mmol/L LAB CHEMISTRY METHOD 09/21/2024 10:48 AM [facility] Chloride 104 96 - 110 mmol/L LAB CHEMISTRY METHOD 09/21/2024 10:48 AM [facility] CO2 30 21 - 32 mmol/L LAB CHEMISTRY METHOD 09/21/2024 10:48 AM [facility] Anion Gap 4 3 - 11 LAB CHEMISTRY METHOD 09/21/2024 10:48 AM [facility] Glucose 100 70 - 100 mg/dL LAB CHEMISTRY METHOD 09/21/2024 10:48 AM [facility] BUN 14 5 - 25 mg/dL LAB CHEMISTRY METHOD 09/21/2024 10:48 AM [facility] Creatinine 0.62 0.50 - 1.10 mg/dL LAB CHEMISTRY METHOD 09/21/2024 10:48 AM [facility] eGFR 92 >=60 mL/min/1. 73m2 LAB CHEMISTRY METHOD 09/21/2024 10:48 AM [facility] Comment:Calculation based on the??Chronic Kidney Disease Epidemiology Collaboration (CKD-EPI) equation refit??without adjustment for race. BUN/Creatinine Ratio 22.6 LAB CHEMISTRY METHOD 09/21/2024 10:48 AM [facility] Calcium 10.6(H) 8.5 - 10.5 mg/dL LAB CHEMISTRY METHOD 09/21/2024 10:48 AM [facility] AST (SGOT) 18 10 - 42 unit/L LAB CHEMISTRY METHOD 09/21/2024 10:48 AM [facility] ALT (SGPT) 45 10 - 60 unit/L LAB CHEMISTRY METHOD 09/21/2024 10:48 AM [facility] Alkaline Phosphatase 67 42 - 121 unit/L LAB CHEMISTRY METHOD 09/21/2024 10:48 AM [facility] Total Protein 6.2 6.0 - 8.0 g/dL LAB CHEMISTRY METHOD 09/21/2024 10:48 AM [facility] Albumin 3.2 3.2 - 5.0 g/dL LAB CHEMISTRY METHOD 09/21/2024 10:48 AM EDT [facility] Total Bilirubin 1.1 0.0 - 1.4 mg/dL LAB CHEMISTRY METHOD 09/21/2024 10:48 AM EDT [facility] Blood Venous blood specimen / Unknown Venipuncture / Unknown 09/21/2024 5:52 AM EDT 09/21/2024 10:06 AM EDT us Ronan Valencia MD LAB BLOOD ORDERABLES Final Resu lt [facility] [address] [place] [address], documented in this encounter Visit Diagnoses Diagnosis [...] documented as of this encounter Care Teams Cuff Setter Overlock Relationship Specialty Start Date End Date Tamra Jerry MD [address] [place] [address] PCP - General Internal Medicine 04/27/21 documented as of this encounter
--- OUTSIDE RECORDS SUMMARY | 2024-11-02 14:52 | XMS_ITS | Encounter Summary ---
[facility] Address [address] [place] [address] Care Team Providers Care Transmission Assembler Name Role Phone Tamra Jerry MD Primary Care Provider [phone] Reason for Visit * Reason Onset Date Comments VNA 10/13/2024 Encounter Details Date Type Department Care Team (Late st Contact Info) Description 10/13/2024 Telephone Adult Medicine [address] [address] Bina Liu MA VNA Social History Tobacco Use Types Packs/Day Years [...] as of this encounter Progress Notes * Bina Liu MA - 10/13/2024 3:53 PM EDT VNA CALL Which VNA office is calling? [facility] / Full name of caller: EMANI [phone] The caller is An Occupational Therapist Is the caller at the patients home?: no Reason for call: JUST A *FYI*ED DISCHARGED HER LASIX Does caller need an urgent call back? no Was CONTACT Telephone # obtained above?: yes Fax #: documented in this encounter Plan of Treatment Upcoming Encounters Date Type Department Care Team (Late st Contact Info) Description 11/13/2024 10:00 AM EDT Appointment Bone Density - [address] [phone] 11/19/2024 11:20 AM EDT Office Visit Endocrinology - [address] [phone] Indu Delcid PA [address] [place] [address] documented as of this encounter Visit Diagnoses Not on filedocumented in this encounter Additional Health Concerns Assessment Noted Time PHQ-9 Depression Total Score: 0 08/24/19 10:42 AM EST A fall risk assessment has been complete d for the patient 08/24/2024 10:42 AM EST documented as of this encounter Care Teams Transmission Assembler Relationship Specialty Start Date End Date Tamra Jerry MD [address] [place] [address] PCP - General Internal Medicine 04/27/21 documented as of this encounter
--- OUTSIDE RECORDS SUMMARY | 2024-11-02 14:52 | XMS_ITS | Encounter Summary ---
Author Organization [facility] Address [address] [place] [address] Care Team Providers Care Inserter Promotional Item Name Role Phone Tamra Jerry MD Primary Care Provider [phone] Reason for Visit * Reason Onset Date Comments faxed order 10/27/2024 [facility] alth order [id number] Encounter Details Date Type Department Care Team (Late st Contact Info) Description 10/27/2024 Telephone Adult Medicine [facility] [address] [place] [address] Tamra Jerry MD [address] [place] [address] faxed order ([facility] order [id number]) Social History Tobacco Use Types Packs/Day Years [...] as of this encounter Progress Notes * Loren Moran MA - 10/29/2024 4:15 PM EDT SIGNED SCANNED AND E-FAXED #[id number] * Leighann Blount - 10/27/2024 3:00 PM EDT [facility] order [id number] received please sign and fax to [phone] documented in this encounter Plan of Treatment Upcoming Encounters Date Type Department Care Team (Late st Contact Info) Description 11/13/2024 10:00 AM EDT Appointment Bone Density - [address] [phone] 11/19/2024 11:20 AM EDT Office Visit Endocrinology - [address] [phone] Indu Delcid PA [address] [place] [address] documented as of this encounter Visit Diagnoses Not on filedocumented in this encounter Additional Health Concerns Assessment Noted Time PHQ-9 Depression Total Score: 0 08/24/19 25 10:42 AM EST A fall risk assessment has been complete d for the patient 08/24/2024 10:42 AM EST documented as of this encounter Care Teams Inserter Promotional Item Relationship Specialty Start Date End Date Tamra Jerry MD [address] [place] [address] PCP - General Internal Medicine 04/27/21 documented as of this encounter
--- OUTSIDE RECORDS SUMMARY | 2024-11-02 14:52 | XMS_ITS | Encounter Summary ---
[facility] Organization [facility] Address [address] [place] [address] Care Team Providers Care Polishing Pad Mounter Name Role Phone Tamra Jerry MD Primary Care Provider [phone] Reason for Visit * Reason Onset Date Comments Faxed Order 10/16/2024 Encounter Details Date Type Department Care Team (Late st Contact Info) Description 10/16/2024 Telephone Adult Medicine [facility] [address] [place] [address] Tamra Jerry MD [address] [place] [address] Faxed Order Social History Tobacco Use Types Packs/Day Years [...] as of this encounter Progress Notes * Pipe Nieto - 10/16/2024 10:56 AM EDT Received [facility] faxed order #[id number]. Please sign and fax to [phone]. documented in this encounter Plan of Treatment Upcoming Encounters Date Type Department Care Team (Late st Contact Info) Description 11/13/2024 10:00 AM EDT Appointment Bone Density - [address] [phone] 11/19/2024 11:20 AM EDT Office Visit Endocrinology - [address] [phone] Indu Delcid PA [address] [place], [place] documented as of this encounter Visit Diagnoses Not on filedocumented in this encounter Additional Health Concerns Assessment Noted Time PHQ-9 Depression Total Score: 0 08/24/19 25 10:42 AM EST A fall risk assessment has been complete d for the patient 08/24/2024 10:42 AM EST documented as of this encounter Care Teams Polishing Pad Mounter Relationship Specialty Start Date End Date Tamra Jerry MD [address] [place] [address] PCP - General Internal Medicine 04/27/21 documented as of this encounter
--- OUTSIDE RECORDS SUMMARY | 2024-11-02 14:52 | XMS_ITS | Encounter Summary ---
[facility] Address [address] [place] [address] Care Team Providers Care Telephone Operator Chief Name Role Phone Tamra Jerry MD Primary Care Provider [phone] Encounter Details Date Type Department Care Team (Late st Contact Info) Description 10/29/2024 Billing Patient Not Present Adult Medicine [facility] [address] [place] [address] Tamra Jerry MD [address] [place] [address] Social History Tobacco Use Types Packs/Day Years [...] Notes * Loren Moran MA - 10/29/2024 11:34 AM EDT SIGNED SCANNED AND E-FAXED documented in this encounter Plan of Treatment Upcoming Encounters Date Type Department Care Team (Late st Contact Info) Description 11/13/2024 10:00 AM EDT Appointment Bone Density - [address] [phone] 11/19/2024 11:20 AM EDT Office Visit Endocrinology - [address] [phone] Indu Delcid PA [address] [place], [place] documented as of this encounter Visit Diagnoses Not on filedocumented in this encounter Additional Health Concerns Assessment Noted Time PHQ-9 Depression Total Score: 0 08/24/19 10:42 AM EST A fall risk assessment has been complete d for the patient 08/24/2024 10:42 AM EST documented as of this encounter Care Teams Telephone Operator Chief Relationship Specialty Start Date End Date Tamra Jerry MD [address] [place] [address] PCP - General Internal Medicine 04/27/21 documented as of this encounter
--- OUTSIDE RECORDS SUMMARY | 2024-11-02 14:52 | XMS_ITS | Encounter Summary ---
Author Organization [facility] Address [address] [place] [address] Care Team Providers Care Director Of Hotel Name Role Phone Tamra Jerry MD Primary Care Provider [phone] Encounter Details Date Type Department Care Team (Late Contact Info) Description 09/16/[address] [facility] - Main Lab [address] [place] [phone] Ronan Valencia MD [address] [place] [address] Heart failure, unspecified (CMS/HCC V24, [...] 10:00 AM EDT Appointment Bone Density - [place] [phone] 11/19/2024 11:20 AM EDT Office Visit Endocrinology - [place] [address] [place] [address] Indu Delcid PA [address] [place] [address] documented as of this encounter Visit Diagnoses [...] documented as of this encounter Care Teams Director Of Hotel Relationship Specialty Start Date End Date Tamra Jerry MD [address] [place] [address] PCP - General Internal Medicine 04/27/21 documented as of this encounter
--- OUTSIDE RECORDS SUMMARY | 2024-11-02 14:52 | XMS_ITS | Encounter Summary ---
Author Organization [facility] Address [address] [place] [address] Care Team Providers Care Lost Charge Card Clerk Name Role Phone Tamra Jerry MD Primary Care Provider [phone] Encounter Details Date Type Department Care Team (Late Contact Info) Description 09/19/2024 Lab Requisition [facility] - Main Lab [address] [facility] [place] [phone] Ronan Valencia MD [address] [place] [phone] Essential (primary) hypertension; Rhabdomyolysis Social History Tobacco [...] AM EDT Appointment Bone Density - [place] [address] [place] [phone] 11/19/2024 11:20 AM EDT Office Visit Endocrinology - [place] [address] [place] [address] [place] [phone] Indu Delcid PA [address] [place] [address] documented as of this encounter Procedures Procedure Name Priority Date/Time Associated Diagnosis Comments COMPLETE BLOOD COUNT Routine 09/19/2024 7:08 AM EDT Essential (primary) hypertension Rhabdomyolysis COMPREHENSIVE METABOLIC PANEL Routine 09/19/2024 7:08 AM EDT Essential (primary) hypertension Rhabdomyolysis documented in this encounter Results * (ABNORMAL) Comprehensive metabolic panel (09/19/2024 7:08 AM EDT) Sodium 139 133 - 145 mmol/L LAB CHEMISTRY METHOD 09/19/2024 12:47 PM [facility] Potassium 3.4(L) 3.5 - 5.5 mmol/L LAB CHEMISTRY METHOD 09/19/2024 12:47 PM [facility] Chloride 102 96 - 110 mmol/L LAB CHEMISTRY METHOD 09/19/2024 12:47 PM [facility] CO2 30 21 - 32 mmol/L LAB CHEMISTRY METHOD 09/19/2024 12:47 PM [facility] Anion Gap 7 3 - 11 LAB CHEMISTRY METHOD 09/19/2024 12:47 PM [facility] Glucose 99 70 - 100 mg/dL LAB CHEMISTRY METHOD 09/19/2024 12:47 PM [facility] BUN 17 5 - 25 mg/dL LAB CHEMISTRY METHOD 09/19/2024 12:47 PM [facility] Creatinine 0.62 0.50 - 1.10 mg/dL LAB CHEMISTRY METHOD 09/19/2024 12:47 PM [facility] eGFR 92 >=60 mL/min/1. 73m2 LAB CHEMISTRY METHOD 09/19/2024 12:47 PM [facility] Comment:Calculation based on the??Chronic Kidney Disease Epidemiology Collaboration (CKD-EPI) equation refit??without adjustment for race. BUN/Creatinine Ratio 27.4 LAB CHEMISTRY METHOD 09/19/2024 12:47 PM EDT [facility] Calcium 10.5 8.5 - 10.5 mg/dL LAB CHEMISTRY METHOD 09/19/2024 12:47 PM EDT [facility] AST (SGOT) 31 10 - 42 unit/L LAB CHEMISTRY METHOD 09/19/2024 12:47 PM EDT [facility] ALT (SGPT) 72(H) 10 - 60 unit/L LAB CHEMISTRY METHOD 09/19/2024 12:47 PM EDT [facility] Alkaline Phosphatase 80 42 - 121 unit/L [facility] Total Protein 6.3 6.0 - 8.0 g/dL LAB CHEMISTRY METHOD 09/19/2024 12:47 PM EDT [facility] Albumin 3.1(L) 3.2 - 5.0 g/dL LAB CHEMISTRY METHOD 09/19/2024 12:47 PM EDT [facility] Total Bilirubin 1.1 0.0 - 1.4 mg/dL LAB CHEMISTRY METHOD 09/19/2024 12:47 PM [facility] Blood Venous blood specimen / Unknown Venipuncture / Unknown 09/19/2024 7:08 AM EDT 09/19/2024 11:34 AM EDT us Ronan Valencia MD LAB BLOOD ORDERABLES Final Resu lt [facility] [address] [place] [address], [place] [phone] * (ABNORMAL) Complete blood count (09/19/2024 7:08 AM EDT) WBC 7.0 4.8 - 10.8 K/mcL LAB HEMETOLOGY METHOD 09/19/2024 12:32 PM [facility] RBC 4.30 3.80 - 4.80 M/mcL LAB HEMETOLOGY METHOD 09/19/2024 12:32 PM [facility] Hemoglobin 13.5 11.5 - 16.0 g/dL LAB HEMETOLOGY METHOD 09/19/2024 12:32 PM [facility] Hematocrit 41.1 35.0 - 47.0 % LAB HEMETOLOGY METHOD 09/19/2024 12:32 PM [facility] MCV 96.3 79.0 - 98.0 FL LAB HEMETOLOGY METHOD 09/19/2024 12:32 PM [facility] MCH 31.6 27.0 - 32.0 pcg LAB HEMETOLOGY METHOD 09/19/2024 12:32 PM [facility] MCHC 32.8 32.0 - 37.0 g/dL LAB HEMETOLOGY METHOD 09/19/2024 12:32 PM [facility] RDW 14.0 11.0 - 15.0 % LAB HEMETOLOGY METHOD 09/19/2024 12:32 PM [facility] Platelets 205 130 - 400 K/mcL LAB HEMETOLOGY METHOD 09/19/2024 12:32 PM [facility] MPV 11.2(H) 7.0 - 11.0 FL LAB HEMETOLOGY METHOD 09/19/2024 12:32 PM [facility] NRBC 0.0 <1.0 % LAB HEMETOLOGY METHOD 09/19/2024 12:32 PM [facility] NRBC Absolute 0.00 <0.10 K/mcL LAB HEMETOLOGY METHOD 09/19/2024 12:32 PM [facility] Blood Venous blood specimen / Unknown Venipuncture / Unknown 09/19/2024 7:08 AM EDT 09/19/2024 11:34 AM EDT Ronan Valencia MD LAB BLOOD ORDERABLES Final Resu lt [facility] [address] [place] [address], documented in this encounter Visit Diagnoses Diagnosis Essential (primary) hypertension Unspecified essential hypertension Rhabdomyolysis documented in this encounter Additional Health Concerns Assessment Noted Time PHQ-9 Depression Total Score: 0 08/24/19 25 10:42 AM EST A fall risk assessment has been complete d for the patient 08/24/2024 10:42 AM EST documented as of this encounter Care Teams Lost Charge Card Clerk Relationship Specialty Start Date End Date Tamra Jerry MD [address] [place] [address] PCP - General Internal Medicine 04/27/21 documented as of this encounter
--- OUTSIDE RECORDS SUMMARY | 2024-11-02 14:52 | XMS_ITS | Clinical Summary ---
Author Organization [facility] Address [address] [place] [address] Care Team Providers Care Sample Steamer Name Role Phone Mignon Lowery MD Primary Care Provider [phone] Social History Tobacco Use Types Packs/Day Years [...] age to complete this topic Care Teams Sample Steamer Relationship Specialty Start Date End Date Mignon Lowery MD PCP - General Internal Medicine 08/25/19
[2024-11-02 15:24] VITALS: BP 132/66; PULSE 83; RESP 16; O2SAT 95
[2024-11-02 15:38] LABS: MANUAL DIFF FLAG NO
[2024-11-02 15:43] LABS: Basophils Percent Auto 0.5 % (0-2); Hematocrit 39.2 % (37.0-47.0); Hemoglobin 13.3 g/dl (12.0-16.0); Imm Gran Abs Auto 0.03 X10*3/uL (0.00-0.03); Imm Gran Pct Auto 0.5 % (0.0-0.4); Lymphocytes Absolute Auto 0.6 X10*3/uL (1.2-4.9); Lymphocytes Percent Auto 9.3 % (20-40); Mean Corpuscular HGB Conc 33.9 g/dl (31.0-35.0); Mean Corpuscular Volume 94.5 fL (80.0-98.0); Mean Platelet Volume 10.8 fL (9.4-12.3); Monocytes Absolute Auto 0.7 X10*3/uL (0.1-1.2); Neutrophils Absolute Auto 5.2 x10*3/uL (2.0-8.3); Neutrophils Percent Auto 78.7 % (45-73); Platelet Count 164 X10*3/uL (160-400); Red Blood Count 4.15 X10*6/uL (4.20-5.50); White Blood Count 6.6 X10*3/uL (4.8-10.8)
[2024-11-02 15:53] LABS: Alanine Aminotransferase 21 U/L (0-31); Albumin Level 3.4 g/dL (3.5-5.0); Alkaline Phosphatase 49 U/L (39-117); Anion Gap 12 (12-20); Aspartate Amino Transferase 38 U/L (5-31); Bilirubin Total 0.7 mg/dL (0.0-1.0); Blood Urea Nitrogen 10 mg/dL (9-16); Calcium 9.9 mg/dL (8.4-10.2); Carbon Dioxide 25 mmol/L (22-29); Chloride 109 mmol/L (96-108); Creatinine Clr Calc Pharmacy 76.7; Estimated Glomerular Filt Rate > 60; Glucose Random 115 mg/dL (60-115); Potassium 3.8 mmol/L (3.3-5.1); Sodium 142 mmol/L (135-145); Total Protein 6.4 g/dL (6.5-8.0)
--- NOTE | 2024-11-02 18:09 | PC.NURSE ---
CCollar removed by Dr Kaye
[2024-11-02 18:30] VITALS: BP 116/89; PULSE 63; RESP 18; TEMP 36.4; O2SAT 96
--- NOTE | 2024-11-02 18:33 | PC.NURSE ---
Daughter at bedside. Dr. Kaye removed cervical collar. Patient wishes to go home. Daughter feels that she can't care fore her mother adequately at home without support. Patient & daughter discussing plan. Will speak to the patient again shortly to determine disposition.
[2024-11-02 20:11] VITALS: BP 119/55; PULSE 70; RESP 18; TEMP 36.9; O2SAT 94
--- NOTE | 2024-11-02 20:19 | PC.NURSE ---
CM (Holly Caceres) at bedside speaking with patient & family. Plan to stay for PT/CM.
--- NOTE | 2024-11-02 21:35 | MHC.CM.ED ---
CM met with patient at the request of Dr. Kaye. Pt is alert and oriented x3. Slightly forgetful at times. Her daughter has been living with her since August construction superintendent. She uses a walker. She did not remember she has services at home. CM spoke with her daughter, HCP, Robb ([phone]). She verifies that she lives with her mother and that [facility] provides SN, PT and OT services. She tells CM her mother's PCP is Tamra Jerry at [facility] in [place]. Her HCP is on file. She verifies that her mother has had worsening lower back back, and increasing weakness. States that she eats poorly, and she provides boost supplements for her mother. She is agreeable to PT assessment in the am and possible STR. Local referrals will be made. Pt is agreeable. CM will follow for discharge planning.
[2024-11-02 23:34] VITALS: BP 103/49; PULSE 75; RESP 16; O2SAT 94
--- NOTE | 2024-11-03 01:53 | PC.NURSE ---
Took over care from Sarah at 23:00. pt is sleeping no sign of distress.
--- NOTE | 2024-11-03 03:13 | PC.NURSE ---
pt repositioned forcomfort.
[2024-11-03 04:25] VITALS: BP 136/75; PULSE 64; RESP 18; TEMP 36.8; O2SAT 96
--- NOTE | 2024-11-03 05:03 | PC.NURSE ---
pt reposition for comfort pure wick repositioned.
[2024-11-03 07:16] VITALS: BP 136/75; PULSE 64; O2SAT 96
--- NOTE | 2024-11-03 07:55 | PC.NURSE ---
pt brought to overflow at 745 am, pt awake/alert x2, rr equal/non labored, lt hand has small blisters currently intact, abrasions to forhead, skin otherwise intact. pt turned/positioned to pt comfort, vss, call crain within reach, plan of care ongoing
[2024-11-03 08:43] VITALS: BP 124/75; PULSE 63; RESP 18; TEMP 36.8; O2SAT 95
--- NOTE | 2024-11-03 09:39 | PC.NURSE ---
med req pharmacy was called regarding the med req, they stated they have her listed to do her med req.
--- NOTE | 2024-11-03 10:12 | MHC.CM.ED ---
Patient remains in ER overflow. Physical therapy eval completed. Short term rehab. Clinical updates sent to facilities still following patient. [facility], [facility], [facility], [facility], [facility], and [address] [place] [address] are able to offer a bed. [facility], [facility], and [facility] are still reviewing. Spoke with Robb via telephone at [phone]. Bed options discussed with Robb. Patient has been to [facility]. That would be 1st choice. 2) [facility] 3) [facility]. Continue to monitor for d/c needs.
--- NOTE | 2024-11-03 10:30 | PC.NURSE ---
pt had pain medication ordered by ED provider but has been sleeping since the order went in, when she wakes, this nurse will re-assess and medicate
--- NOTE | 2024-11-03 10:35 | PHA.MEDREC ---
Addendum entered by Luis Hanson RPh 11/03/24 11:50: Med rec was reviewed by [facility]. Original Note: Pharmacy Consult ? Medication Reconciliation Pharmacy has completed the medication reconciliation. Spoke to patients daughter Rachele to confirm med list. Daughter was able to name all of patient medications from patients bottles. Daughter states patient is no longer taking Furosemide 20 mg and Lisinopril 20 mg. Patient last took her medications last Saturday.
--- NOTE | 2024-11-03 11:27 | MHC.CM.ED ---
[facility] unable to offer a bed. [facility] is in the process of obtaining insuarnce auth. Continue to monitor for d/c needs.
[2024-11-03 14:00] VITALS: BP 101/58; PULSE 72; RESP 18; TEMP 36.8; O2SAT 96
--- NOTE | 2024-11-03 15:20 | PC.NURSE ---
patient woke and was c/o pain- she was offered pain medications that have been ordered, pt refused pain medications. plan of care ongoing
[2024-11-03] MEDS: oxyCODONE HCl Immed Release 5 MG TABLET PO (17:02)
--- NOTE | 2024-11-03 17:22 | MHC.CM.ED ---
CM called daughter/HCP Robb ([phone]) with d/c plan to [facility] 11/04 at 10:30am via BLS.
--- NOTE | 2024-11-03 18:26 | PC.NURSE ---
patient is c/o bilateral hip pain which increases with movement, ED provider notified, xrays to be ordered for patient.
[2024-11-03 20:01] VITALS: BP 119/69; PULSE 76; RESP 20; TEMP 36.8; O2SAT 94
--- NOTE | 2024-11-03 21:15 | PC.NURSE ---
patient attempting to get out of bed, was reported by prior shift patient was unable to bare weight and did not follow simple commands so pt assisted onto bedpan, swearing at me and stating I am so mean to her . Suzan care provided and linens changed
[2024-11-04 04:51] VITALS: BP 123/77; PULSE 72; RESP 18; TEMP 36.6; O2SAT 98
[2024-11-04] MEDS: oxyCODONE HCl Immed Release 5 MG TABLET PO (04:55)
--- NOTE | 2024-11-04 05:10 | PC.NURSE ---
patient attempting to get out of bed again reeducated patient on safety. patient reporting severe pain in left hip and barely able to move in bed. Pt helped by this RN and tech back into bed an placed on bedpan. patient very forgetful constant reinforcement needed.
[2024-11-04 07:22] VITALS: BP 119/72; PULSE 79; RESP 16; TEMP 36.8; O2SAT 95
--- NOTE | 2024-11-04 08:16 | MHC.CM.ED ---
Patient remains in ER overflow. [facility] at 1030am. Patient, daughter Angie Zamudio RN and Gracie MCNEIL aware. Continue to monitor for d/c needs.
[2024-11-04 10:10] VITALS: BP 131/80; PULSE 80; RESP 18; TEMP 37; O2SAT 96
[2024-11-04 10:58] VITALS: BP 131/80; PULSE 80; RESP 18; TEMP 37
== END 2024-11-04 11:02 ==
PROVIDERS: Emergency Provider Emergency Medicine; PCP Internal Medicine
DX: S60.212A Contusion of left wrist, initial encounter (principal); S00.83XA Contusion of other part of head, initial encounter; S60.512A Abrasion of left hand, initial encounter; R26.81 Unsteadiness on feet; R51.9 Headache, unspecified; M54.2 Cervicalgia; M79.602 Pain in left arm; R10.2 Pelvic and perineal pain; R62.7 Adult failure to thrive; W19.XXXA Unspecified fall, initial encounter; Y93.9 Activity, unspecified; Y92.9 Unspecified place or not applicable; Y99.8 Other external cause status; Z79.899 Other long term (current) drug therapy; Z68.26 Body mass index [BMI] 26.0-26.9, adult
CPT/HCPCS: 36415; 70450; 72125; 73090; 73110; 73521; 80053; 82550; 85025; 97161; 99285

== ENCOUNTER → 2024-11-02 13:50 | Outpatient (BNV) | payer MEDICARE, SELFPAY | PROVIDERS: Emergency Provider Emergency Medicine; PCP Internal Medicine; Visit Provider Radiology Diagnostic Radiology | DX: M47.892 Other spondylosis, cervical region (principal); M48.02 Spinal stenosis, cervical region; E04.9 Nontoxic goiter, unspecified; S09.90XA Unspecified injury of head, initial encounter; M19.032 Primary osteoarthritis, left wrist; W19.XXXA Unspecified fall, initial encounter | CPT/HCPCS: 70450; 72125; 73090; 73110 ==

== ENCOUNTER → 2024-11-03 18:24 | Outpatient (BNV) | payer MEDICARE, SELFPAY | PROVIDERS: Emergency Provider Emergency Medicine; PCP Internal Medicine; Visit Provider Radiology Diagnostic Radiology | DX: M25.551 Pain in right hip (principal); M25.552 Pain in left hip | CPT/HCPCS: 73521 ==

== ENCOUNTER 2025-06-02 13:50 | Outpatient (AMB) | payer MEDICARE, SELFPAY ==
--- NOTE | 2025-06-02 14:08 | MHC.OFFVIS ---
Intake Visit Reasons: follow up Allergies codeine (CODEINE) Allergy (Unknown, Verified 11/02/24 12:17) UNKNOWN diphenhydramine (From BENADRYL) Allergy (Unknown, Verified 11/02/24 12:17) NAUSEA HPI Comments Details: The patient is a 79 year old individual presenting for follow-up and management of moderate dementia. The patient lives at home with a caregiver. The patient's caregiver reports that the patient complains of not sleeping at night, staying up all week, and sleeping at intervals throughout the day. The caregiver also notes that the patient frequently states that they are depressed. Anxiety has been observed, particularly preceding appointments. Current medications include a small dose of donepezil and mirtazapine. [facility] Medical History Elevated liver enzymes Insomnia Depression Hypertension Surgical History History of carpal tunnel surgery H/O neck surgery Social History Household Members: None Housing: House Do you presently have visiting nurse or other home services: No (no but daughter requesting to talk to someone) Comment: refuse to put non-skid yellow socks Patient Tobacco Use Status: Never used Tobacco Advance Directives Date on File: 09/16/24 service: No Review of Systems Narrative - Psychiatric: Caregiver reports the patient experiences depressed mood and anxiety. - Neurological: Caregiver reports the patient complains of insomnia, stating the patient is up all week and sleeps at intervals during the day. Physical Exam Neuro Other: Mental Status: She is alert and awake with normal spontaneity of speech fluency comprehension and anxious affect. She is asking same question again again. Cranial Nerves: CN II: Visual solano full to confrontation, visual acuity intact. CN III, IV, : Pupils equal, round, reactive to light and accommodation. Extraocular movements are normal. CN V: Facial sensation is normal. CN VII: Facial movements symmetrical. CN VIII: Hearing intact to bedside conversation is normal. CN IX, X: Palate elevates symmetrically. CN XI: Shoulder shrug and head turn symmetrical. CN XII: Tongue midline without atrophy or fasciculations. She is walking in his slow paced gait with a walker. Extrapyramidal: Full facial expressions and blinking. No rigidity. Movements are appropriate with no tremor or abnormality. Speech: Normal; no dysarthria or tremor. Assessment & Plan Assessment & Plan (1) Alzheimer dementia: Comment: MRI brain WO at [facility] in Jul 2023: mod severe ant temporal atrophy, and mild MVD. Code(s): G30.9 - Alzheimer's disease, unspecified; F02.80 - Dementia in other diseases classified elsewhere, unspecified severity, without behavioral disturbance, psychotic disturbance, mood disturbance, and anxiety Category: Medical Qualifiers: Alzheimer's disease onset: late onset Dementia severity: mild Dementia behavioral or psychological symptom: with mood disturbance Qualified Code(s): G30.1 - Alzheimer's disease with late onset; F02.A3 - Dementia in other diseases classified elsewhere, mild, with mood disturbance Plan Impression: Moderately severe dementia probably of Alzheimer type Rec: a: Make Donepezil 10mg a day b: Continue Mirtazapine 7.5mg one at night c: Start Sertraline 25mg one with breakfast d: Start Memantine 10mg bid Medications: New donepezil 10 mg PO BEDTIME 90 tabs 1RF memantine (Namenda) 10 mg PO BID 180 tabs 1RF mirtazapine 7.5 mg PO BEDTIME 90 tabs 1RF sertraline 25 mg PO DAILY 90 tabs 1RF Discontinued donepezil Discontinued Reason: Doctor's Order 5 mg PO BEDTIME 90 tabs 0RF Coding Level of Care Code Est Pt Level 3 (85710) Diagnoses Mild late onset Alzheimer's dementia with mood disturbance G30.1; F02.A3 Alzheimer's disease onset: late onset Dementia severity: mild Dementia behavioral or psychological symptom: with mood disturbance
--- OUTSIDE RECORDS SUMMARY | 2025-06-02 16:54 | XMS_ITS | Encounter Summary ---
Author Organization [facility] Address [address] [place] [address] Care Team Providers Care Side Stitcher Name Role Phone Tamra Jerry MD Primary Care Provider [phone] Encounter Details Date Type Department Care Team (Late Contact Info) Description 09/18/2024 Lab Requisition [facility] - Main Lab [address] [place] [id number] Ronan Valencia MD [address] [place] [address] Heart failure, unspecified (CMS/HCC V24, [...] Department Care Team (Late Contact Info) Description 06/11/2025 1:10 PM EST Appointment Radiology Department [address] [phone] 07/05/2025 2:30 PM EST Appointment [facility] Density [address] [place] [address] 08/25/2025 1:20 PM EST Office Visit Endocrinology [address] [phone] Katia Mejia MD [address] [place] [address] 11/04/2025 1:00 PM EDT Office Visit Adult Medicine [address] [phone] Tamra Jerry MD [address] [place] [address] documented as of this encounter Procedures Procedure [...] LAB HEMETOLOGY METHOD 09/21/2024 10:31 AM EDT [facility] RBC 4.10 3.80 - 4.80 M/mcL LAB HEMETOLOGY METHOD 09/21/2024 10:31 AM EDT [facility] Hemoglobin 12.9 11.5 - 16.0 g/dL LAB HEMETOLOGY METHOD 09/21/2024 10:31 AM [facility] Hematocrit 39.1 35.0 - 47.0 % LAB HEMETOLOGY METHOD 09/21/2024 10:31 AM [facility] MCV 96.1 79.0 - 98.0 FL LAB HEMETOLOGY METHOD 09/21/2024 10:31 AM [facility] MCH 31.7 27.0 - 32.0 pcg LAB HEMETOLOGY METHOD 09/21/2024 10:31 AM [facility] MCHC 33.0 32.0 - 37.0 g/dL LAB HEMETOLOGY METHOD 09/21/2024 10:31 AM [facility] RDW 14.1 11.0 - 15.0 % LAB HEMETOLOGY METHOD 09/21/2024 10:31 AM [facility] Platelets 218 130 - 400 K/mcL LAB HEMETOLOGY METHOD 09/21/2024 10:31 AM [facility] MPV 11.1(H) 7.0 - 11.0 FL LAB HEMETOLOGY METHOD 09/21/2024 10:31 AM [facility] NRBC 0.0 <1.0 % LAB HEMETOLOGY METHOD 09/21/2024 10:31 AM [facility] NRBC Absolute 0.00 <0.10 K/mcL LAB HEMETOLOGY METHOD 09/21/2024 10:31 AM [facility] Neutrophils Relative 59.8 % LAB HEMETOLOGY METHOD 09/21/2024 10:31 AM [facility] Lymphocytes Relative 23.9 % LAB HEMETOLOGY METHOD 09/21/2024 10:31 AM [facility] Monocytes Relative 9.6 % LAB HEMETOLOGY METHOD 09/21/2024 10:31 AM EDT [facility] Eosinophils Relative 5.2 % LAB [facility] Basophils Relative 0.8 % LAB HEMETOLOGY METHOD 09/21/2024 10:31 AM [facility] Immature Granulocytes Relative 0.7 % LAB HEMETOLOGY METHOD 09/21/2024 10:31 AM EDT [facility] Neutrophils Absolute 4.53 1.50 - 7.00 K/mcL LAB HEMETOLOGY METHOD 09/21/2024 10:31 AM EDT [facility] Lymphocytes Absolute 1.81 1.00 - 5.00 K/mcL LAB HEMETOLOGY METHOD 09/21/2024 10:31 AM [facility] Monocytes Absolute 0.73 0.20 - 1.00 K/mcL LAB HEMETOLOGY METHOD 09/21/2024 10:31 AM EDT [facility] Eosinophils Absolute 0.39 0.00 - 0.50 K/mcL LAB HEMETOLOGY METHOD 09/21/2024 10:31 AM [facility] Basophils Absolute 0.06 0.00 - 0.20 K/mcL LAB HEMETOLOGY METHOD 09/21/2024 10:31 AM [facility] Immature Granulocytes Absolute 0.05(H) 0.00 - 0.03 K/mcL LAB HEMETOLOGY METHOD 09/21/2024 10:31 AM EDT [facility] Blood Venous blood specimen / Unknown Venipuncture / Unknown 09/21/2024 5:52 AM EDT 09/21/2024 10:06 AM EDT us Ronan Valencia MD LAB BLOOD ORDERABLES Final Resu lt [facility] [address] [place] [address], * (ABNORMAL) Comprehensive metabolic panel (09/21/2024 5:52 AM EDT) [facility] Signature Sodium 138 133 - 145 mmol/L LAB CHEMISTRY METHOD 09/21/2024 10:48 AM [facility] Potassium 3.7 3.5 - 5.5 mmol/L LAB CHEMISTRY METHOD 09/21/2024 10:48 AM [facility] Chloride 104 96 - 110 mmol/L LAB CHEMISTRY METHOD 09/21/2024 10:48 AM [facility] CO2 30 21 - 32 mmol/L LAB CHEMISTRY METHOD 09/21/2024 10:48 AM [facility] Anion Gap 4 3 - 11 LAB CHEMISTRY METHOD 09/21/2024 10:48 AM [facility] Glucose 100 70 - 100 mg/dL LAB CHEMISTRY METHOD 09/21/2024 10:48 AM [facility] BUN 14 5 - 25 mg/dL LAB CHEMISTRY METHOD 09/21/2024 10:48 AM [facility] Creatinine 0.62 0.50 - 1.10 mg/dL LAB CHEMISTRY METHOD 09/21/2024 10:48 AM [facility] eGFR 92 >=60 mL/min/1. 73m2 LAB CHEMISTRY METHOD 09/21/2024 10:48 AM [facility] Comment:Calculation based on the Chronic Kidney Disease Epidemiology Collaboration (CKD-EPI) equation refit without adjustment for race. BUN/Creatinine Ratio 22.6 LAB CHEMISTRY METHOD 09/21/2024 10:48 AM [facility] Calcium 10.6(H) 8.5 - 10.5 mg/dL LAB CHEMISTRY METHOD 09/21/2024 10:48 AM [facility] AST (SGOT) 18 10 - 42 unit/L LAB CHEMISTRY METHOD 09/21/2024 10:48 AM [facility] ALT (SGPT) 45 10 - 60 unit/L LAB CHEMISTRY METHOD 09/21/2024 10:48 AM EDT [facility] Alkaline Phosphatase 67 42 - 121 unit/L LAB CHEMISTRY METHOD 09/21/2024 10:48 AM EDT [facility] Total Protein 6.2 6.0 - 8.0 g/dL LAB CHEMISTRY METHOD 09/21/2024 10:48 AM EDT [facility] Albumin 3.2 3.2 - 5.0 g/dL LAB CHEMISTRY METHOD 09/21/2024 10:48 AM EDT [facility] Total Bilirubin 1.1 0.0 - 1.4 mg/dL LAB CHEMISTRY METHOD 09/21/2024 10:48 AM EDT [facility] Blood Venous blood specimen / Unknown Venipuncture / Unknown 09/21/2024 5:52 AM EDT 09/21/2024 10:06 AM EDT us Ronan Valencia MD LAB BLOOD ORDERABLES Final Resu lt [facility] [address] [place] [address], documented in this encounter Visit Diagnoses Diagnosis [...] documented as of this encounter Care Teams Side Stitcher Relationship Specialty Start Date End Date Tamra Jerry MD [address] [place] [address] PCP - General Internal Medicine 04/27/21 documented as of this encounter
--- OUTSIDE RECORDS SUMMARY | 2025-06-02 16:54 | XMS_ITS | Encounter Summary ---
Author Organization [facility] Address [address] [place] [address] Care Team Providers Care Horticultural Services Supervisor Name Role Phone Tamra Jerry MD Primary Care Provider [phone] Encounter Details Date Type Department Care Team (Late Contact Info) Description 09/27/2024 Lab Requisition [facility] - Main Lab [address] [place] [phone] Ronan Valencia MD [address] [place] [address] Heart failure, unspecified (CMS/HCC V24, [...] 06/11/2025 1:10 PM EST Appointment Radiology Department [address] [phone] 07/05/2025 2:30 PM EST Appointment [facility] Bone Density [address] [place] [phone] 08/25/2025 1:20 PM EST Office Visit Endocrinology [address] [phone] Katia Mejia MD [address] [place] [address] 11/04/2025 1:00 PM EDT Office Visit Adult Medicine South [address] [phone] Tamra Jerry MD [address] [place] [address] documented as of this encounter Procedures Procedure [...] LAB HEMETOLOGY METHOD 09/28/2024 12:33 PM EDT [facility] RBC 4.40 3.80 - 4.80 M/mcL LAB HEMETOLOGY METHOD 09/28/2024 12:33 PM EDT [facility] Hemoglobin 14.0 11.5 - 16.0 g/dL LAB HEMETOLOGY METHOD 09/28/2024 12:33 PM [facility] Hematocrit 42.2 35.0 - 47.0 % LAB HEMETOLOGY METHOD 09/28/2024 12:33 PM [facility] MCV 95.5 79.0 - 98.0 FL LAB HEMETOLOGY METHOD 09/28/2024 12:33 PM [facility] MCH 31.7 27.0 - 32.0 pcg LAB HEMETOLOGY METHOD 09/28/2024 12:33 PM [facility] MCHC 33.2 32.0 - 37.0 g/dL LAB HEMETOLOGY METHOD 09/28/2024 12:33 PM [facility] RDW 14.2 11.0 - 15.0 % LAB HEMETOLOGY METHOD 09/28/2024 12:33 PM [facility] Platelets 282 130 - 400 K/mcL LAB HEMETOLOGY METHOD 09/28/2024 12:33 PM [facility] MPV 11.1(H) 7.0 - 11.0 FL LAB HEMETOLOGY METHOD 09/28/2024 12:33 PM [facility] NRBC 0.0 <1.0 % LAB HEMETOLOGY METHOD 09/28/2024 12:33 PM [facility] NRBC Absolute 0.00 <0.10 K/mcL LAB HEMETOLOGY METHOD 09/28/2024 12:33 PM [facility] Neutrophils Relative 70.6 % LAB HEMETOLOGY METHOD 09/28/2024 12:33 PM [facility] Lymphocytes Relative 16.8 % LAB HEMETOLOGY METHOD 09/28/2024 12:33 PM [facility] Monocytes Relative 9.3 % LAB HEMETOLOGY METHOD 09/28/2024 12:33 PM EDT [facility] Eosinophils Relative 1.9 % LAB HEMETOLOGY METHOD 09/28/2024 12:33 PM EDT [facility] Basophils Relative 1.0 % LAB HEMETOLOGY METHOD 09/28/2024 12:33 PM EDT [facility] Immature Granulocytes Relative 0.4 % LAB HEMETOLOGY METHOD 09/28/2024 12:33 PM EDT [facility] Neutrophils Absolute 6.39 1.50 - 7.00 K/mcL LAB HEMETOLOGY METHOD 09/28/2024 12:33 PM EDT [facility] Lymphocytes Absolute 1.52 1.00 - 5.00 K/mcL LAB HEMETOLOGY METHOD 09/28/2024 12:33 PM EDT [facility] Monocytes Absolute 0.84 0.20 - 1.00 K/mcL LAB HEMETOLOGY METHOD 09/28/2024 12:33 PM EDT [facility] Eosinophils Absolute 0.17 0.00 - 0.50 K/mcL LAB HEMETOLOGY METHOD 09/28/2024 12:33 PM EDT [facility] Basophils Absolute 0.09 0.00 - 0.20 K/mcL LAB HEMETOLOGY METHOD 09/28/2024 12:33 PM EDT [facility] Immature Granulocytes Absolute 0.04(H) 0.00 - 0.03 K/mcL LAB HEMETOLOGY METHOD 09/28/2024 12:33 PM EDT [facility] Blood Venous blood specimen / Unknown Venipuncture / Unknown 09/28/2024 6:45 AM EDT 09/28/2024 11:48 AM EDT us Ronan Valencia MD LAB BLOOD ORDERABLES Final Resu lt [facility] [address] [place] [address], * (ABNORMAL) Comprehensive metabolic panel (09/28/2024 6:45 AM EDT) Sodium 136 133 - 145 mmol/L LAB CHEMISTRY METHOD 09/28/2024 1:19 PM [facility] Potassium 4.7 3.5 - 5.5 mmol/L LAB CHEMISTRY METHOD 09/28/2024 1:19 PM [facility] Comment:Hemolysis present Chloride 103 96 - 110 mmol/L LAB CHEMISTRY METHOD 09/28/2024 1:19 PM [facility] CO2 24 21 - 32 mmol/L LAB CHEMISTRY METHOD 09/28/2024 1:19 PM [facility] Anion Gap 9 3 - 11 LAB CHEMISTRY METHOD 09/28/2024 1:19 PM [facility] Glucose 98 70 - 100 mg/dL LAB CHEMISTRY METHOD 09/28/2024 1:19 PM [facility] BUN 20 5 - 25 mg/dL LAB CHEMISTRY METHOD 09/28/2024 1:19 PM [facility] Creatinine 0.66 0.50 - 1.10 mg/dL LAB CHEMISTRY METHOD 09/28/2024 1:19 PM [facility] eGFR 90 >=60 mL/min/1. 73m2 LAB CHEMISTRY METHOD 09/28/2024 1:19 PM [facility] Comment:Calculation based on the Chronic Kidney Disease Epidemiology Collaboration (CKD-EPI) equation refit without adjustment for race. BUN/Creatinine Ratio 30.3 LAB CHEMISTRY METHOD 09/28/2024 1:19 PM [facility] Calcium 11.2(H) 8.5 - 10.5 mg/dL LAB CHEMISTRY METHOD 09/28/2024 1:19 PM [facility] AST (SGOT) 36 10 - 42 unit/L LAB CHEMISTRY METHOD 09/28/2024 1:19 PM [facility] Comment:Hemolysis present ALT (SGPT) 44 10 - 60 unit/L LAB CHEMISTRY METHOD 09/28/2024 1:19 PM EDT [facility] Alkaline Phosphatase 71 42 - 121 unit/L LAB CHEMISTRY METHOD 09/28/2024 1:19 PM EDT [facility] Total Protein 7.3 6.0 - 8.0 g/dL LAB CHEMISTRY METHOD 09/28/2024 1:19 PM EDT [facility] Albumin 3.6 3.2 - 5.0 g/dL LAB CHEMISTRY METHOD 09/28/2024 1:19 PM T [facility] Total Bilirubin 1.1 0.0 - 1.4 mg/dL LAB CHEMISTRY METHOD 09/28/2024 1:19 PM T [facility] Blood Venous blood specimen / Unknown Venipuncture / Unknown 09/28/2024 6:45 AM EDT 09/28/2024 11:48 AM EDT us Ronan Valencia MD LAB BLOOD ORDERABLES Final Resu lt [facility] [address] [place] [address], documented in this encounter Visit Diagnoses Diagnosis [...] documented as of this encounter Care Teams Horticultural Services Supervisor Relationship Specialty Start Date End Date Tamra Jerry MD [address] [place] [address] PCP - General Internal Medicine 04/27/21 documented as of this encounter
--- OUTSIDE RECORDS SUMMARY | 2025-06-02 16:54 | XMS_ITS | Encounter Summary ---
Author Organization [facility] Address [address] [place] [address] Care Team Providers Care Milled Rice Broker Name Role Phone Tamra Jerry MD Primary Care Provider [phone] Encounter Details Date Type Department Care Team (Late Contact Info) Description 09/19/2024 Lab Requisition [facility] - Main Lab [address] [facility] [place] [phone] Ronan Valencia MD [address] [place] [phone] Essential (primary) hypertension; Rhabdomyolysis Social History Tobacco [...] 06/11/2025 1:10 PM EST Appointment Radiology Department - [address] [phone] 07/05/2025 2:30 PM EST Appointment [facility] Bone Density [address] [place] [address] 08/25/2025 1:20 PM EST Office Visit Endocrinology [address] [phone] Katia Mejia MD [address] [place], [place] 11/04/2025 1:00 PM EDT Office Visit Adult Medicine South - [address] [phone] Tamra Jerry MD [address] [place], [place] documented as of this encounter Procedures [...] mmol/L LAB CHEMISTRY METHOD 09/19/2024 12:47 PM T [facility] Potassium 3.4(L) 3.5 - 5.5 mmol/L LAB CHEMISTRY METHOD 09/19/2024 12:47 PM T [facility] Chloride 102 96 - 110 mmol/L LAB CHEMISTRY METHOD 09/19/2024 12:47 PM [facility] CO2 30 21 - 32 mmol/L LAB CHEMISTRY METHOD 09/19/2024 12:47 PM [facility] Anion Gap 7 3 - 11 LAB CHEMISTRY METHOD 09/19/2024 12:47 PM [facility] Glucose 99 70 - 100 mg/dL LAB CHEMISTRY METHOD 09/19/2024 12:47 PM [facility] BUN 17 5 - 25 mg/dL LAB CHEMISTRY METHOD 09/19/2024 12:47 PM [facility] Creatinine 0.62 0.50 - 1.10 mg/dL LAB CHEMISTRY METHOD 09/19/2024 12:47 PM [facility] eGFR 92 >=60 mL/min/1. 73m2 LAB CHEMISTRY METHOD 09/19/2024 12:47 PM [facility] Comment:Calculation based on the Chronic Kidney Disease Epidemiology Collaboration (CKD-EPI) equation refit without adjustment for race. BUN/Creatinine Ratio 27.4 LAB CHEMISTRY METHOD 09/19/2024 12:47 PM [facility] Calcium 10.5 8.5 - 10.5 mg/dL LAB CHEMISTRY METHOD 09/19/2024 12:47 PM [facility] AST (SGOT) 31 10 - 42 unit/L LAB CHEMISTRY METHOD 09/19/2024 12:47 PM [facility] ALT (SGPT) 72(H) 10 - 60 unit/L LAB CHEMISTRY METHOD 09/19/2024 12:47 PM [facility] Alkaline Phosphatase 80 42 - 121 unit/L LAB CHEMISTRY METHOD 09/19/2024 12:47 PM [facility] Total Protein 6.3 6.0 - 8.0 g/dL LAB CHEMISTRY METHOD 09/19/2024 12:47 PM [facility] Albumin 3.1(L) 3.2 - 5.0 g/dL LAB CHEMISTRY METHOD 09/19/2024 12:47 PM [facility] Total Bilirubin 1.1 0.0 - 1.4 mg/dL LAB CHEMISTRY METHOD 09/19/2024 12:47 PM [facility] Blood Venous blood specimen / Unknown Venipuncture / Unknown 09/19/2024 7:08 AM EDT 09/19/2024 11:34 AM EDT us Ronan Valencia MD LAB BLOOD ORDERABLES Final Resu lt [facility] [address] [place] [address], [place] [phone] * (ABNORMAL) Complete blood count (09/19/2024 7:08 AM EDT) [facility] Signature WBC 7.0 4.8 - 10.8 K/mcL LAB HEMETOLOGY METHOD 09/19/2024 12:32 PM EDT [facility] RBC 4.30 3.80 - 4.80 M/mcL LAB HEMETOLOGY METHOD 09/19/2024 12:32 PM EDT [facility] Hemoglobin 13.5 11.5 - 16.0 g/dL LAB HEMETOLOGY METHOD 09/19/2024 12:32 PM EDT [facility] Hematocrit 41.1 35.0 - 47.0 % LAB HEMETOLOGY METHOD 09/19/2024 12:32 PM EDT [facility] MCV 96.3 79.0 - 98.0 FL LAB HEMETOLOGY METHOD 09/19/2024 12:32 PM EDT [facility] MCH 31.6 27.0 - 32.0 pcg LAB HEMETOLOGY METHOD 09/19/2024 12:32 PM EDT [facility] MCHC 32.8 32.0 - 37.0 g/dL LAB HEMETOLOGY METHOD 09/19/2024 12:32 PM EDT [facility] RDW 14.0 11.0 - 15.0 % LAB HEMETOLOGY METHOD 09/19/2024 12:32 PM EDT [facility] Platelets 205 130 - 400 K/mcL LAB HEMETOLOGY METHOD 09/19/2024 12:32 PM EDT [facility] MPV 11.2(H) 7.0 - 11.0 FL LAB HEMETOLOGY METHOD 09/19/2024 12:32 PM EDT [facility] NRBC 0.0 <1.0 % LAB HEMETOLOGY METHOD 09/19/2024 12:32 PM EDT [facility] NRBC Absolute 0.00 <0.10 K/mcL LAB HEMETOLOGY METHOD 09/19/2024 12:32 PM EDT [facility] Blood Venous blood specimen / Unknown Venipuncture / Unknown 09/19/2024 7:08 AM EDT 09/19/2024 11:34 AM EDT Ronan Valencia MD LAB BLOOD ORDERABLES Final Resu lt [facility] [address] [place] [address], documented in this encounter Visit Diagnoses Diagnosis Essential (primary) hypertension Unspecified essential hypertension Rhabdomyolysis documented in this encounter Additional Health Concerns Assessment Noted Time PHQ-9 Depression Total Score: 0 08/24/19 25 10:42 AM EST A fall risk assessment has been complete d for the patient 08/24/2024 10:42 AM EST documented as of this encounter Care Teams Milled Rice Broker Relationship Specialty Start Date End Date Tamra Jerry MD [address] [place] [address] PCP - General Internal Medicine 04/27/21 documented as of this encounter
--- OUTSIDE RECORDS SUMMARY | 2025-06-02 16:54 | XMS_ITS | Encounter Summary ---
[facility] Address [address] [place] [address] Care Team Providers Care Cartridge Belt Puncher Name Role Phone Tamra Jerry MD Primary Care Provider [phone] Encounter Details Date Type Department Care Team (Late Contact Info) Description 11/05/2024 Lab Requisition [facility] - Main Lab [address] [facility] [place] [phone] Dominique Contreras MD [address] [place] [address] Essential (primary) hypertension; Heart failure, unspecified (CMS/HCC V24, CMS/HCC V28); Unspecified infectious disease Social History Tobacco Use Types Packs/Day Years [...] 06/11/2025 1:10 PM EST Appointment Radiology Department [address] [address] 07/05/2025 2:30 PM EST Appointment [facility] Bone Density [address] [place] [address] 08/25/2025 1:20 PM EST Office Visit [address] [phone] Katia Mejia MD [address] [place] [address] 11/04/2025 1:00 PM EDT Office Visit Adult Medicine [address] [phone] Tamra Jerry MD [address] [place] [address] documented as of this encounter Procedures Procedure Name Priority Date/Time Associated Diagnosis Comments COMPLETE BLOOD COUNT Routine 11/05/2024 5:06 AM EDT Essential (primary) hypertension Heart failure, unspecified (CMS/HCC V24, CMS/HCC V28) Unspecified infectious disease BASIC METABOLIC PANEL Routine 11/05/2024 5:06 AM EDT Essential (primary) hypertension Heart failure, unspecified (CMS/HCC V24, CMS/HCC V28) Unspecified infectious disease documented in this encounter Results * (ABNORMAL) Basic metabolic panel (11/05/2024 5:06 AM EDT) Sodium 141 133 - 145 mmol/L LAB CHEMISTRY METHOD 11/05/2024 9:23 AM EDT [facility] Potassium 3.8 3.5 - 5.5 mmol/L LAB CHEMISTRY METHOD 11/05/2024 9:23 AM EDT [facility] Chloride 108 96 - 110 mmol/L LAB CHEMISTRY METHOD 11/05/2024 9:23 AM EDT [facility] CO2 25 21 - 32 mmol/L LAB CHEMISTRY METHOD 11/05/2024 9:23 AM EDT [facility] Anion Gap 8 3 - 11 LAB CHEMISTRY METHOD 11/05/2024 9:23 AM EDT [facility] Glucose 124(H) 70 - 100 mg/dL LAB CHEMISTRY METHOD 11/05/2024 9:23 AM [facility] BUN 14 5 - 25 mg/dL LAB CHEMISTRY METHOD 11/05/2024 9:23 AM EDT [facility] Creatinine 0.56 0.50 - 1.10 mg/dL LAB CHEMISTRY METHOD 11/05/2024 9:23 AM EDT [facility] eGFR 94 >=60 mL/min/1. 73m2 LAB CHEMISTRY METHOD 11/05/2024 9:23 AM T [facility] Comment:Calculation based on the Chronic Kidney Disease Epidemiology Collaboration (CKD-EPI) equation refit without adjustment for race. BUN/Creatinine Ratio 25.0 LAB CHEMISTRY METHOD 11/05/2024 9:23 AM [facility] Calcium 9.9 8.5 - 10.5 mg/dL LAB CHEMISTRY METHOD 11/05/2024 9:23 AM [facility] Blood Venous blood specimen / Unknown Venipuncture / Unknown 11/05/2024 5:06 AM EDT 11/05/2024 8:27 AM EDT us Dominique Contreras MD LAB BLOOD ORDERABLES Final Resu lt [facility] [address] [place] [address], [place] [phone] * (ABNORMAL) Complete blood count (11/05/2024 5:06 AM EDT) WBC 5.0 4.8 - 10.8 K/mcL LAB HEMETOLOGY METHOD 11/05/2024 8:49 AM EDT [facility] RBC 4.10 3.80 - 4.80 M/mcL LAB HEMETOLOGY METHOD 11/05/2024 8:49 AM EDT [facility] Hemoglobin 13.2 11.5 - 16.0 g/dL LAB HEMETOLOGY METHOD 11/05/2024 8:49 AM [facility] Hematocrit 39.3 35.0 - 47.0 % LAB HEMETOLOGY METHOD 11/05/2024 8:49 AM [facility] MCV 95.9 79.0 - 98.0 FL LAB HEMETOLOGY METHOD 11/05/[facility]24 8[facility] MCH 32.2(H) 27.0 - 32.0 pcg LAB HEMETOLOGY METHOD 11/05/2024 8:49 AM [facility] MCHC 33.6 32.0 - 37.0 g/dL LAB HEMETOLOGY METHOD 11/05/2024 8:49 AM [facility] RDW 14.0 11.0 - 15.0 % LAB HEMETOLOGY METHOD 11/05/2024 8:49 AM [facility] Platelets 179 130 - 400 K/mcL LAB HEMETOLOGY METHOD 11/05/2024 8:49 AM [facility] MPV 11.6(H) 7.0 - 11.0 FL LAB HEMETOLOGY METHOD 11/05/2024 8:49 AM [facility] NRBC 0.0 <1.0 % LAB HEMETOLOGY METHOD 11/05/2024 8:49 AM [facility] NRBC Absolute 0.00 <0.10 K/mcL LAB HEMETOLOGY METHOD 11/05/2024 8:49 AM [facility] Blood Venous blood specimen / Unknown Venipuncture / Unknown 11/05/2024 5:06 AM EDT 11/05/2024 8:27 AM EDT us Dominique Contreras MD LAB BLOOD [facility]ABLES [facility] [address] [place] [address], documented in this encounter Visit Diagnoses Diagnosis Essential (primary) hypertension Unspecified essential hypertension Heart failure, unspecified (CMS/[facility] V24, CMS/[facility] V28) Heart failure, unspecified Unspecified infectious disease documented in this encounter Additional Health Concerns Assessment Noted Time PHQ-9 Depression Total Score: 0 08/24/19 10:42 AM EST A fall risk assessment has been complete d for the patient 08/24/2024 10:42 AM EST documented as of this encounter Care Teams Cartridge Belt Puncher Relationship Specialty Start Date End Date Tamra Jerry MD [address] [place] [address] PCP - General Internal Medicine 04/27/21 documented as of this encounter
--- OUTSIDE RECORDS SUMMARY | 2025-06-02 16:55 | XMS_ITS | Encounter Summary ---
[facility] Organization [facility] Address [address] [place] [address] Care Team Providers Care Cut Out Worker Name Role Phone Tamra Jerry MD Primary Care Provider [phone] Encounter Details Date Type Department Care Team (Late Contact Info) Description 09/16/2024 Lab Requisition [facility] - Main Lab [address] [facility] [place] [phone] Ronan Valencia MD [address] [place] [address] Heart failure, unspecified (CMS/HCC V24, [...] 06/11/2025 1:10 PM EST Appointment Radiology Department [address] [address] 07/05/2025 2:30 PM EST Appointment [facility] Bone Density [address] [place] [phone] 08/25/2025 1:20 PM EST Office Visit [address] [phone] Katia Mejia MD [address] [place] [address] 11/04/2025 1:00 PM EDT Office Visit Adult Medicine [address] [phone] Tamra Jerry MD [address] [place] [address] documented as of this encounter Visit Diagnoses [...] documented as of this encounter Care Teams Cut Out Worker Relationship Specialty Start Date End Date Tamra Jerry MD [address] [place] [address] PCP - General Internal Medicine 04/27/21 documented as of this encounter
--- OUTSIDE RECORDS SUMMARY | 2025-06-02 16:55 | XMS_ITS | Encounter Summary ---
Author Organization [facility] Address [address] [place] [address] Care Team Providers Care Human Service Coordinator Name Role Phone Tamra Jerry MD Primary Care Provider [phone] Encounter Details Date Type Department Care Team (Late Contact Info) Description 11/13/[address] [facility] - Main Lab [address] [facility] [place] [phone] Dominique Contreras MD [address] [place] [address] Essential (primary) hypertension; Malignant neoplasm of unspecified site of unspecified female breast (CMS/HCC V24, CMS/HCC V28); Anxiety disorder, unspecified Social History Tobacco Use Types Packs/Day [...] Upcoming Encounters Date Type Department Care Team ([facility] Contact Info) Description 06/11/2025 1:10 PM EST Appointment Radiology Department [address] [address] 07/05/2025 2:30 PM EST Appointment [facility] Bone Density [address] [place] [address] 08/25/2025 1:20 PM EST Office Visit Endocrinology [address] [phone] Katia Mejia MD [address] [place] [address] 11/04/2025 1:00 PM EDT Office Visit Adult Medicine [address] [phone] Tamra Jerry MD [address] [place] [address] documented as of this encounter Procedures Procedure Name Priority Date/Time Associated Diagnosis Comments BASIC METABOLIC PANEL Routine 11/13/2024 5:06 AM EDT Essential (primary) hypertension Malignant neoplasm of unspecified site of unspecified female breast ([facility]/HCC V24, [facility] V28) Anxiety disorder, unspecified documented in this encounter Results * (ABNORMAL) Basic metabolic panel (11/13/2024 5:06 AM EDT) Sodium 139 133 - 145 mmol/L LAB CHEMISTRY METHOD 11/13/2024 8:25 AM T [facility] Potassium 3.4(L) 3.5 - 5.5 mmol/L LAB CHEMISTRY METHOD 11/13/2024 8:25 AM T [facility] Chloride 105 96 - 110 mmol/L LAB CHEMISTRY METHOD 11/13/2024 8:25 AM [facility] CO2 25 21 - 32 mmol/L LAB CHEMISTRY METHOD 11/13/2024 8:25 AM [facility] Anion Gap 9 3 - 11 LAB CHEMISTRY METHOD 11/13/2024 8:25 AM [facility] Glucose 105(H) 70 - 100 mg/dL LAB CHEMISTRY METHOD 11/13/2024 8:25 AM EDT [facility] BUN 11 5 - 25 mg/dL LAB CHEMISTRY METHOD 11/13/2024 8:25 AM T [facility] Creatinine 0.44(L) 0.50 - 1.10 mg/dL LAB CHEMISTRY METHOD 11/13/2024 8:25 AM EDT [facility] eGFR 100 >=60 mL/min/1. 73m2 LAB CHEMISTRY METHOD 11/13/2024 8:25 AM EDT [facility] Comment:Calculation based on the Chronic Kidney Disease Epidemiology Collaboration (CKD-EPI) equation refit without adjustment for race. BUN/Creatinine Ratio 25.0 LAB CHEMISTRY METHOD 11/13/2024 8:25 AM T [facility] Calcium 10.6(H) 8.5 - 10.5 mg/dL LAB CHEMISTRY METHOD 11/13/2024 8:25 AM EDT [facility] Blood Venous blood specimen / Unknown Venipuncture / Unknown 11/13/2024 5:06 AM EDT 11/13/2024 7:15 AM EDT us Dominique Contreras MD LAB BLOOD ORDERABLES Final Resu lt [facility] [address] [place] [address], documented in this encounter Visit Diagnoses Diagnosis Essential (primary) hypertension Unspecified essential hypertension Malignant neoplasm of unspecified site of unspecified female breast (CMS/HCC V24, CMS/HCC V28) Anxiety disorder, unspecified documented in this encounter Additional Health Concerns Assessment Noted Time PHQ-9 Depression Total Score: 0 08/24/19 25 10:42 AM EST A fall risk assessment has been complete d for the patient 08/24/2024 10:42 AM EST documented as of this encounter Care Teams Human Service Coordinator Relationship Specialty Start Date End Date Tamra Jerry MD [address] [place] [address] PCP - General Internal Medicine 04/27/21 documented as of this encounter
--- OUTSIDE RECORDS SUMMARY | 2025-06-02 16:55 | XMS_ITS | Encounter Summary ---
Author Organization [facility] Address [address] [place] [address] Care Team Providers Care Powdered Sugar Pulverizer Operator Name Role Phone Tamra Jerry MD Primary Care Provider [phone] Encounter Details Date Type Department Care Team (Late st Contact Info) Description 05/19/2025 Results Follow-Up Adult Medicine [facility] [address] [place], [place] [phone] Michelle Paredes PA [address] [place], [place] Social History Tobacco Use Types Packs/Day Years Used Date Smoking Tobacco: Never Smokeless Tobacco: Never Alcohol Use Standard Drinks/Week Comments No 0 (1 standard drink = 0.6 oz pur e alcohol) Housing Instability Answer Date Recorde d Are you worried that in the next 2 months you may not have stable housing? No 05/06/2025 Food Access & Nutrition Answer Date Rec orded Do you have access to a vari ety of food including fruits and vegetables? Yes 05/06/2025 Access to Healthcare Answer Date Record ed Within the last 3 months, roger greene many times did you visit the emergency department for your medical care? 0 05/06/2025 Health Literacy Answer Date Recorded How often do you need to hav e someone help you when you read instructions, pamphlets, or other written material from your doctor or pharmacy? Often 05/06/2025 Caregiver: How often do you need to have someone help you when you read instructions, pamphlets, or other written material from your doctor or pharmacy? Not on file 05/06/2025 Financial Risk Answer Date Recorded How hard is it for you to pa y for the very basics like food, housing, medical care, and air conditioning / heating? Not very hard 05/06/2025 Transportation Answer Date Recorded Has the lack of transportati on kept you from meetings, work, or from getting things needed for daily living? No Has the lack of transportati on kept you from medical appointments or from getting medications? No 05/06/2025 Social Isolation Answer Date Recorded How often do you feel lonely or isolated from th ose around you? Often 05/06/2025 Food Risk Answer Date Recorded Within the past 12 months we worried whether our food would run out before we got money to buy more. Never true 05/06/2025 Within the past 12 months th e food we bought just didn't last and we didn't have money to get more. Never true 05/06/2025 Dependent Care Answer Date Recorded Do you need help finding or paying for care for your loved ones. For example, child welfare director or elderly care for an older adult? No 05/06/2025 Education Answer Date Recorded Do you think completing more education or training, like finishing a GED, going to college, or learning a trade, would be helpful for you? No 05/06/2025 Employment and Income Answer Date Recor ded During the last four weeks, have you been actively looking for work? No 05/06/2025 Living Situation Answer Date Recorded What is your living situation? Unrecognized valu e 05/06/2025 Comments No Sex and Gender Information Value Date Recorded Sex Assigned at Not on file Legal Sex Female 7:53 AM EST Gender Identity Not on file Sexual Orientation Not on file documented as of this encounter Plan of Treatment Upcoming Encounters Date Type Department Care Team (Late st Contact Info) Description 06/11/2025 1:10 PM EST Appointment Radiology Department [address] [phone] 07/05/2025 2:30 PM EST Appointment [facility] Bone Density [address] [place] [address] 08/25/2025 1:20 PM EST Office Visit Endocrinology [address] [phone] Katia Mejia MD [address] [place] [address] 11/04/2025 1:00 PM EDT Office Visit Adult Medicine [address] [phone] Tamra Jerry MD [address] [place] [address] documented as of this encounter Visit Diagnoses Not on filedocumented in this encounter Additional Health Concerns Assessment Noted Time PHQ-9 Depression Total Score: 6 05/06/20 3:38 PM EDT A fall risk assessment has been complete d for the patient 05/06/2025 3:35 PM EDT documented as of this encounter Care Teams Powdered Sugar Pulverizer Operator Relationship Specialty Start Date End Date Tamra Jerry MD [address] [place] [address] PCP - General Internal Medicine 04/27/21 documented as of this encounter
--- OUTSIDE RECORDS SUMMARY | 2025-06-02 16:55 | XMS_ITS | Encounter Summary ---
[facility] Address [address] [place] [address] Care Team Providers Care Sap Architect Name Role Phone Tamra Jerry MD Primary Care Provider [phone] Encounter Details Date Type Department Care Team (Late st Contact Info) Description 05/11/2025 Results Follow-Up Adult Medicine [facility] [address] [place], [place] [phone] Michelle Paredes PA [address] [place], [place] Social History Tobacco Use Types Packs/Day [...] for your loved ones. For example, child care aide or elderly care for an older adult? [...] on file documented as of this encounter Ordered Prescriptions Prescription Sig Dispense Quantity Refills Last Filled Start Date End Date cholecalciferol (VITAMIN D-3) 5,000 Units tablet Take 1 tablet (5,000 Units total) by mouth every other day. 45 tablet 05/11/2025 documented in this encounter Plan of Treatment Upcoming Encounters Date Type Department Care Team (Late st Contact Info) Description 06/11/2025 1:10 PM EST Appointment Radiology Department - [address] [phone] 07/05/2025 2:30 PM EST Appointment [facility] Bone Density [address] [place] [phone] 08/25/2025 1:20 PM EST Office Visit Endocrinology - [address] [phone] Katia Mejia MD [address] [place] [address] 11/04/2025 1:00 PM EDT Office Visit [place] Medicine [place] - [address] [phone] Tamra Jerry MD [address] [place] [address] documented as of this encounter Results * (ABNORMAL) Calcium (05/17/2025 2:23 PM EST) Calcium 11.2(H) 8.5 - 10.5 mg/dL LAB CHEMISTRY METHOD 05/17/2025 8:19 PM EST [facility] Blood Venous blood specimen / Unknown Venipuncture / Unknown 05/17/2025 2:23 PM EST 05/17/2025 2:23 PM EST us Michelle MCNEIL LAB BLOOD ORDERABLES Final Re sult [facility] [address] [place] [address], documented in this encounter Visit Diagnoses Diagnosis Hypercalcemia- Primary documented in this encounter Discontinued Medications Medication Sig Discontinue Reason Start Date End Da te cholecalciferol (VITAMIN D-3) 50 mcg (2,000 unit) capsule TAKE 1 CAPSULE BY MOUTH EVERY DAY Dose adjustment 06/15/2024 05/11/2025 documented as of this encounter Additional Health Concerns Assessment Noted Time PHQ-9 Depression Total Score: 6 05/06/20 25 3:38 PM EDT A fall risk assessment has been complete d for the patient 05/06/2025 3:35 PM EDT documented as of this encounter Care Teams Sap Architect Relationship Specialty Start Date End Date Tamra Jerry MD [address] [place] [address] PCP - General Internal Medicine 04/27/21 documented as of this encounter
--- OUTSIDE RECORDS SUMMARY | 2025-06-02 16:55 | XMS_ITS | Encounter Summary ---
Author Organization [facility] Address [address] [place] [address] Care Team Providers Care Hard Candy Spinner Name Role Phone Tamra Jerry MD Primary Care Provider [phone] Encounter Details Date Type Department Care Team (Late Contact Info) Description 11/11/2024 Lab Requisition [facility] - Main Lab [address] [place] [phone] Dominique Contreras MD [address] [place] [phone] Personal history of malignant neoplasm of breast; Adult failure to thrive Social History Tobacco Use Types Packs/Day Years [...] 1:10 PM EST Appointment Radiology Department - [address] [phone] 07/05/2025 2:30 PM EST Appointment [facility] Bone Density [address] [place] [address] 08/25/2025 1:20 PM EST Office Visit [address] [phone] Katia Mejia MD [address] [place] [address] 11/04/2025 1:00 PM EDT Office Visit Adult Medicine [address] [phone] Tamra Jerry MD [address] [place] [address] documented as of this encounter Procedures Procedure Name Priority Date/Time Associated Diagnosis Comments CBC WITH AUTO DIFFERENTIAL Routine 11/11/2024 5:04 AM EDT Personal history of malignant neoplasm of breast Adult failure to thrive CBC AND DIFFERENTIAL Routine 11/11/2024 5:04 AM EDT Personal history of malignant neoplasm of breast Adult failure to thrive BASIC METABOLIC PANEL Routine 11/11/2024 5:04 AM EDT Personal history of malignant neoplasm of breast Adult failure to thrive documented in this encounter Results * (ABNORMAL) CBC auto differential (11/11/2024 5:04 AM EDT) [facility] WBC 7.4 4.8 - 10.8 K/mcL LAB HEMETOLOGY METHOD 11/11/2024 9:07 AM EDT [facility] RBC 4.20 3.80 - 4.80 M/mcL LAB HEMETOLOGY METHOD 11/11/2024 9:07 AM EDT [facility] Hemoglobin 13.3 11.5 - 16.0 g/dL LAB HEMETOLOGY METHOD 11/11/2024 9:07 AM EDT [facility] Hematocrit 40.6 35.0 - 47.0 % LAB HEMETOLOGY METHOD 11/11/2024 9:07 AM [facility] MCV 96.7 79.0 - 98.0 FL LAB HEMETOLOGY METHOD 11/11/2024 9:07 AM [facility] MCH 31.7 27.0 - 32.0 pcg LAB HEMETOLOGY METHOD 11/11/2024 9:07 AM [facility] MCHC 32.8 32.0 - 37.0 g/dL LAB HEMETOLOGY METHOD 11/11/2024 9:07 AM [facility] RDW 13.7 11.0 - 15.0 % LAB HEMETOLOGY METHOD 11/11/2024 9:07 AM [facility] Platelets 256 130 - 400 K/mcL LAB HEMETOLOGY METHOD 11/11/2024 9:07 AM [facility] MPV 11.5(H) 7.0 - 11.0 FL LAB HEMETOLOGY METHOD 11/11/2024 9:07 AM [facility] NRBC 0.0 <1.0 % LAB HEMETOLOGY METHOD 11/11/2024 9:07 AM [facility] NRBC Absolute 0.00 <0.10 K/mcL LAB HEMETOLOGY METHOD 11/11/2024 9:07 AM [facility] Neutrophils Relative 61.3 % LAB HEMETOLOGY METHOD 11/11/2024 9:07 AM [facility] Lymphocytes Relative 21.7 % LAB HEMETOLOGY METHOD 11/11/2024 9:07 AM [facility] Monocytes Relative 11.3 % LAB HEMETOLOGY METHOD 11/11/2024 9:07 AM [facility] Eosinophils Relative 3.9 % LAB HEMETOLOGY METHOD 11/11/2024 9:07 AM [facility] Basophils Relative 0.7 % LAB HEMETOLOGY METHOD 11/11/2024 9:07 AM EDT [facility] Immature Granulocytes Relative 1.1 % LAB HEMETOLOGY METHOD 11/11/2024 9:07 AM EDT [facility] Neutrophils Absolute 4.55 1.50 - 7.00 K/mcL LAB HEMETOLOGY METHOD 11/11/2024 9:07 AM EDT [facility] Lymphocytes Absolute 1.61 1.00 - 5.00 K/mcL LAB HEMETOLOGY METHOD 11/11/2024 9:07 AM EDT [facility] Monocytes Absolute 0.84 0.20 - 1.00 K/mcL LAB HEMETOLOGY METHOD 11/11/2024 9:07 AM EDT [facility] Eosinophils Absolute 0.29 0.00 - 0.50 K/mcL LAB HEMETOLOGY METHOD 11/11/2024 9:07 AM EDT [facility] Basophils Absolute 0.05 0.00 - 0.20 K/mcL LAB HEMETOLOGY METHOD 11/11/2024 9:07 AM EDT [facility] Immature Granulocytes Absolute 0.08(H) 0.00 - 0.03 K/mcL LAB HEMETOLOGY METHOD 11/11/2024 9:07 AM [facility] Blood Venous blood specimen / Unknown Venipuncture / Unknown 11/11/2024 5:04 AM EDT 11/11/2024 8:36 AM EDT us Dominique Contreras MD LAB BLOOD ORDERABLES Final Resu lt [facility] [address] [place] [address], * (ABNORMAL) Basic metabolic panel (11/11/2024 5:04 AM EDT) [facility] Sodium 139 133 - 145 mmol/L LAB CHEMISTRY METHOD 11/11/2024 9:20 AM [facility] Potassium 3.4(L) 3.5 - 5.5 mmol/L LAB CHEMISTRY METHOD 11/11/2024 9:20 AM [facility] Chloride 103 96 - 110 mmol/L LAB CHEMISTRY METHOD 11/11/2024 9:20 AM [facility] CO2 27 21 - 32 mmol/L LAB CHEMISTRY METHOD 11/11/2024 9:20 AM [facility] Anion Gap 9 3 - 11 LAB CHEMISTRY METHOD 11/11/2024 9:20 AM [facility] Glucose 105(H) 70 - 100 mg/dL LAB CHEMISTRY METHOD 11/11/2024 9:20 AM [facility] BUN 12 5 - 25 mg/dL LAB CHEMISTRY METHOD 11/11/2024 9:20 AM [facility] Creatinine 0.51 0.50 - 1.10 mg/dL LAB CHEMISTRY METHOD 11/11/2024 9:20 AM [facility] eGFR 96 >=60 mL/min/1. 73m2 LAB CHEMISTRY METHOD 11/11/2024 9:20 AM [facility] Comment:Calculation based on the Chronic Kidney Disease Epidemiology Collaboration (CKD-EPI) equation refit without adjustment for race. BUN/Creatinine Ratio 23.5 LAB CHEMISTRY METHOD 11/11/2024 9:20 AM [facility] Calcium 10.7(H) 8.5 - 10.5 mg/dL LAB CHEMISTRY METHOD 11/11/2024 9:20 AM [facility] Blood Venous blood specimen / Unknown Venipuncture / Unknown 11/11/2024 5:04 AM EDT 11/11/2024 8:36 AM EDT us Dominique Contreras MD LAB BLOOD ORDERABLES Final Resu lt [facility] [place] [facility] [address] [place] [address], documented in this encounter Visit Diagnoses Diagnosis Personal history of malignant neoplasm of breast Adult failure to thrive documented in this encounter Additional Health Concerns Assessment Noted Time PHQ-9 Depression Total Score: 0 08/24/19 25 10:42 AM EST A fall risk assessment has been complete d for the patient 08/24/2024 10:42 AM EST documented as of this encounter Care Teams Hard Candy Spinner Relationship Specialty Start Date End Date Tamra Jerry MD [address] [place] [address] PCP - General Internal Medicine 04/27/21 documented as of this encounter
--- OUTSIDE RECORDS SUMMARY | 2025-06-02 16:55 | XMS_ITS ---
Author Name [facility] Organization Unknown Care Team Organization Name Specialty Phone Email Start Date End Da te [facility] Tamra Jerry Primary Care 09/12/2022 [facility] Himanshu, PROVIDER Primary Care 05/15/202202/05
--- OUTSIDE RECORDS SUMMARY | 2025-06-02 16:55 | XMS_ITS | Clinical Summary ---
Author Organization [facility] Address [address] [place] [address] Phone Care Team Providers Care Organic Chemistry Teacher Name Role Phone Tamra Jerry MD Primary Care Provider [phone] Allergies Active Allergy Reactions Criticality Noted Date Comments Anastrozole 10/29/2008 Counteracting antidepressants Hair loss Anti-Itch Itching 08/05/2005 Codeine 08/05/2005 GI upset Prednisone 08/05/2005 vitreous leaking Zolpidem 04/20/2015 nausea Medications donepeziL (ARICEPT) 5 mg tablet TAKE 1 TABLET BY MOUTH EVERY DAY AT BEDTIME FOR 90 DAYS 4 Active mirtazapine (REMERON) 15 mg tablet Take 1 tablet (15 mg total) by mouth at bedtime. 90 each 1 5 Active gabapentin (NEURONTIN) 100 mg capsule TAKE 1 CAPSULE BY MOUTH AT BEDTIME. 90 capsule 1 5 Active cholecalciferol (VITAMIN D-3) 5,000 Units tablet Take 1 tablet (5,000 Units total) by mouth every other day. 45 tablet 5 Active cholecalciferol (VITAMIN D-3) 50 mcg (2,000 unit) capsule TAKE 1 CAPSULE BY MOUTH EVERY DAY 90 capsule 1 4 05/11/20 25 Discontinu ed(Dose adjustment ) Active Problems Problem Noted Date Diagnosed Date DNR (do not resuscitate) 12/18/2024 Overview (12/18/2024): MOLST form completed 12/18/2024 Cardiopulmonary resuscitation - do not resuscitate Ventilation for a patient in respiratory distress - do not intubate or ventilate Transfer to hospital -transfer to hospital Dialysis - no dialysis Artificial nutrition - no artificial nutrition Artificial hydration - use artificial hydration Microalbuminuria 04/10/2024 Hyperparathyroidism ([facility] V24) 04/07/2024 White matter abnormality on MRI of brain 024 Overview (08/22/2024): Minimal white matter changes, likely a manifestation of chronic small vessel disease. Dementia ([facility] V24, [facility] V28) 06/24/2023 Overview (08/22/2024): Prediabetes 05/23/2022 Arthritis of left sacroiliac joint ([facility] V24) 11/22/2021 Lumbosacral strain 11/22/2021 Obesity (BMI [...] Encounters Date Type Department Care Team Description 05/25/2025 3:00 PM EST Office Visit Endocrinology - [address] [phone] Katia Mejia MD Hyperparathyroidism ([facility] V24) (Primary Dx) 05/19/2025 12:40 PM EST Lab Draw Station - [address] Hypercalcemia 05/19/2025 Results Follow-Up Adult [address] [phone] Michelle Paredes PA 05/19/2025 Results Follow-Up [address] [phone] Michelle Paredes PA 05/17/2025 2:20 PM EST Lab Draw Station - [address] Hypercalcemia 05/11/2025 Results Follow-Up [address] [phone] Michelle Paredes PA 05/10/2025 11:30 AM EST Lab Draw Station - [address] Microalbuminuria; Memory impairment; Primary hypertension; Hyperparathyroidism ([facility]/HCC V24); Prediabetes; Vitamin D deficiency; Obesity (BMI 30-39.9); History of breast cancer 05/06/2025 2:00 PM EDT Office Visit [address] [phone] Michelle Paredes PA Encounter for annual wellness visit (AWV) in Medicare patient (Primary Dx); Microalbuminuria; Memory impairment; Primary hypertension; Hyperparathyroidism ([facility]/HCC V24); Prediabetes; Vitamin D deficiency; Obesity (BMI 30-39.9); History of breast cancer; Need for vaccination against Streptococcus pneumoniae; DNR (do not resuscitate); Current severe episode of major depressive disorder without psychotic features, unspecified whether recurrent (CMS/HCC V24, CMS/HCC V28) from Last 3 Months Immunizations Immunization Administration Dates Next Due Influenza trivalent, 0.5mL ( Fluad) 65yo and older 05/06/2025,04/02/2024,06/12/2021,04/09,04/15/2018,04/23/2017 Influenza trivalent, 0.5mL, preservative free (Fluarix; FluLaval; Fluzone) ages 6mo and older (Afluria) 3 years and older 04/20/2015,04/11/2012,04/03/2011,05/10,04/07/2009,04/27/2008 Pneumococcal conjugate 13 va lent (Prevnar 13, PCV13) 2mo and older 04/25/2018 Pneumococcal conjugate 20 va lent (Prevnar 20, PCV 20) 2mo and older 05/06/2025 Pneumococcal polysaccharide 23 valent (Pneumovax 23) 2yo [...] Record ed Within the last 3 months, ho w many times did you visit the emergency [...] care for your loved ones. For example, children counselor or elderly care for an older adult? [...] Sign Reading Time Taken Comments Blood Pressure 156/88 05/25/2025 3:08 PM EST Pulse 67 05/25/2025 3:08 PM EST Temperature 35.7 C (96.3 F) 05/06/2025 2:12 PM EDT Respiratory Rate 14 05/06/2025 2:12 PM EDT Oxygen Saturation 98% 12/18/2024 10:27 AM EDT Inhaled Oxygen Concentration - - Weight 70.9 kg (156 lb 6.4 oz) 05/25/2025 3:08 P M EST Height 160 cm (5' 3 ) 05/06/2025 2:12 PM EDT Body Mass Index 27.71 05/06/2025 2:12 PM EDT Plan of Treatment Upcoming Encounters Date Type Department Care Team (Late st Contact Info) Description 06/11/2025 1:10 PM EST Appointment Radiology Department - [address] [phone] 07/05/2025 2:30 PM EST Appointment [facility] Bone Density [address] [place] [address] 08/25/2025 1:20 PM EST Office Visit Endocrinology - [address] [phone] Katia Mejia MD [address] [place] [address] 11/04/2025 1:00 PM EDT Office Visit [facility] South - [address] [phone] Tamra Jerry MD [address] [place], [place] Health Maintenance Due Date Last Done Comments Zoster Vaccines (1 of 2) 1964 Osteoporosis Screening (Bone Density Screening) 06/10/2022 12/16/2018 RSV Immunization Adult Patients (1 - 1-dose 75+ series) 2022 COVID-19 Vaccine ( - season) 2025 06/12/2021, 10/07/2020, 09/16/2020 Falls Risk Assessment 05/06/2026 05/06/2025 , 05/06/2025, 08/24/2024, Additional history exists Medicare Annual Wellness Visit 05/06/2026 05/06/2025 Social Influencers of Health Screening 05/06/2026 05/06/2025 Hypertension/CHF/CAD Annual BMP Blood Test 05/10/2026 05/10/2025, 12/08/2024, 11/20/2024, Additional history exists Cholesterol Screening (Lipid Panel) 05/10/2030 05/10/2025, 04/06/2024, 04/06/2024 DTaP,Tdap,and Td Vaccines (5 - Td or Tdap) 01/12/2034 01/13/2024, 05/17/2021, 04/14/2012, Additional history exists Hepatitis C Screening Completed 04/15/2013 Breast Cancer Screening Discontinued 09/26/19, 02/09/2021, 02/03/2020, Additional history exists Depression Screening Completed 05/06/2025 Influenza Vaccine Completed 05/06/2025, , 06/12/2021, Additional history exists Pneumococcal Vaccine: 50+ Years Completed 05/06/2025, 03/03/2020, 04/25/2018 HIB Vaccines Aged Out No longer eligi [...] Procedure Name Priority Date/Time Associated Diagnosis Comments CALCIUM STAT 05/19/2025 12:50 PM EST Hypercalcemia PARATHYROID HORMONE INTACT Routine 05/19/2025 12:50 PM EST Hypercalcemia CALCIUM Routine 05/17/2025 2:23 PM EST Hypercalcemia COMPLETE BLOOD COUNT Routine 05/10/2025 11:45 AM EST Microalbuminuria Memory impairment Primary hypertension Hyperparathyroidis m ([facility] V24) Prediabetes Vitamin D deficiency Obesity (BMI 30-39.9) History of breast cancer COMPREHENSIVE METABOLIC PANEL Routine 05/10/2025 11:45 AM EST Microalbuminuria Memory impairment Primary hypertension Hyperparathyroidis m ([facility] V24) Prediabetes Vitamin D deficiency Obesity (BMI 30-39.9) History of breast cancer HEMOGLOBIN A1C Routine 05/10/2025 11:45 AM EST Microalbuminuria Memory impairment Primary hypertension Hyperparathyroidis m ([facility] V24) Prediabetes Vitamin D deficiency Obesity (BMI 30-39.9) History of breast cancer LIPID PANEL WITH REFLEX TO DIRECT LDL Routine 05/10/2025 11:45 AM EST Microalbuminuria Memory impairment Primary hypertension Hyperparathyroidis m ([facility] V24) Prediabetes Vitamin D deficiency Obesity (BMI 30-39.9) History of breast cancer VITAMIN D 25 HYDROXY Routine 05/10/2025 11:45 AM EST Microalbuminuria Memory impairment Primary hypertension Hyperparathyroidis m ([facility] V24) Prediabetes Vitamin D deficiency Obesity (BMI 30-39.9) History of breast cancer SCREENING MAMMOGRAPHY BI 2-VIEW BREAST INC CAD Routine 09/26/2023 10:34 AM EDT Encounter for screening mammogram for malignant neoplasm of breast DXA BONE DENSITY STUDY 1+ SITS AXIAL SKEL Routine 12/16/2018 11:30 AM EDT Asymptomatic menopausal state HEPATITIS C SCREENING Routine 04/15/2013 from Last 3 Months or Most Recently Relevant to Health Maintenance Results * (ABNORMAL) Parathyroid hormone intact (05/19/2025 12:50 PM EST) PTH 172.1(H) 18.5 - 88.0 pcg/mL LAB CHEMISTRY METHOD 05/19/2025 4:18 PM EST [facility] Blood Venous blood specimen / Unknown Venipuncture / Unknown 05/19/2025 12:50 PM EST 05/19/2025 12:50 PM EST us Michelle MCNEIL LAB BLOOD ORDERABLES Final Re sult [facility] [address] [place] [address], [place] [phone] * (ABNORMAL) Calcium (05/19/2025 12:50 PM EST) Only the most recent of2 resultswithin the time period is included. Calcium 10.9(H) 8.5 - 10.5 mg/dL LAB CHEMISTRY METHOD 05/19/2025 2:31 PM EST [facility] Blood Venous blood specimen / Unknown Venipuncture / Unknown 05/19/2025 12:50 PM EST 05/19/2025 12:50 PM EST us Michelle MCNEIL LAB BLOOD ORDERABLES Final Re sult [facility] [address] [place] [address], [place] [phone] * Lipid panel with reflex to direct LDL (05/10/2025 11:45 AM EST) Cholesterol 168 0 - 200 mg/dL LAB CHEMISTRY METHOD 05/10/2025 5:[address] [facility] Triglycerides 115 0 - 150 mg/dL LAB CHEMISTRY METHOD 05/10/2025 5:[address] [facility] HDL 86 >=40 mg/dL LAB CHEMISTRY METHOD 05/10/2025 5:[address] [facility] LDL Calculated 59 0 - 100 mg/dL LAB CHEMISTRY METHOD 05/10/2025 5:[address] [facility] Comment:Estimated LDL Calcul ated using equation: Total cholesterol - HDL cholesterol - (Triglycerides/5) VLDL Cholesterol Marvin 23 mg/dL LAB CHEMISTRY METHOD 05/10/2025 5:[address] [facility] Non HDL Chol. (LDL+VLDL) 82 <145 mg/dL LAB CHEMISTRY METHOD 05/10/2025 5:[address] [facility] Chol/HDL Ratio 2.0 0.0 - 4.4 LAB CHEMISTRY METHOD 05/10/2025 5:[address] [facility] Blood Venous blood specimen / Unknown Venipuncture / Unknown 05/10/2025 11:45 AM EST 05/10/2025 11:45 AM EST Michelle MCNEIL LAB BLOOD ORDERABLES Final Re sult [facility] [address] [place] [address], [place] [phone] * Vitamin D 25 hydroxy (05/10/2025 11:45 AM EST) Vit D, 25-Hydroxy 39.4 30.0 - 80.0 ng/mL LAB CHEMISTRY METHOD 05/10/2025 5:[address] [facility] Blood Venous blood specimen / Unknown Venipuncture / Unknown 05/10/2025 11:45 AM EST 05/10/2025 11:45 AM EST us Michelle MCNEIL LAB BLOOD ORDERABLES Final Re sult [facility] [address] [place] [address], [place] [phone] * Complete blood count (05/10/2025 11:45 AM EST) WBC 7.4 4.8 - 10.8 K/mcL LAB HEMETOLOGY METHOD 05/10/2025 2:[address] [facility] RBC 4.40 3.80 - 4.80 M/mcL LAB HEMETOLOGY METHOD 05/10/2025 2:[address] [facility] Hemoglobin 13.6 11.5 - 16.0 g/dL LAB HEMETOLOGY METHOD 05/10/2025 2:[address] [facility] Hematocrit 41.6 35.0 - 47.0 % LAB HEMETOLOGY METHOD 05/10/2025 2:[address] [facility] MCV 95.0 79.0 - 98.0 FL LAB HEMETOLOGY METHOD 05/10/2025 2:[address] [facility] MCH 31.1 27.0 - 32.0 pcg LAB HEMETOLOGY METHOD 05/10/2025 2:[address] [facility] MCHC 32.7 32.0 - 37.0 g/dL LAB HEMETOLOGY METHOD 05/10/2025 2:[address] [facility] RDW 12.2 11.0 - 15.0 % LAB HEMETOLOGY METHOD 05/10/2025 2:[address] [facility] Platelets 225 130 - 400 K/mcL LAB HEMETOLOGY METHOD 05/10/2025 2:55 PM EST [facility] MPV 10.7 7.0 - 11.0 FL LAB HEMETOLOGY METHOD 05/10/2025 2:55 PM EST [facility] NRBC 0.0 <1.0 % LAB HEMETOLOGY METHOD 05/10/2025 2:55 PM EST [facility] NRBC Absolute 0.00 <0.10 K/mcL LAB HEMETOLOGY METHOD 05/10/2025 2:55 PM EST [facility] Blood Venous blood specimen / Unknown Venipuncture / Unknown 05/10/2025 11:45 AM EST 05/10/2025 11:45 AM EST us Michelle MCNEIL LAB BLOOD ORDERABLES Final Re sult [facility] [address] [place] [address], [place] [phone] * Hemoglobin A1c (05/10/2025 11:45 AM EST) Hemoglobin A1C 5.4 <6.5 % LAB CHEMISTRY METHOD 05/10/2025 8:55 PM EST [facility] Mean Bld Glu Estim. 108 mg/dL LAB CHEMISTRY METHOD 05/10/2025 8:55 PM EST [facility] Blood Venous blood specimen / Unknown Venipuncture / Unknown 05/10/2025 11:45 AM EST 05/10/2025 11:45 AM EST us Michelle MCNEIL LAB BLOOD ORDERABLES Final Re sult [facility] [address] [place] [address], [place] [phone] * (ABNORMAL) Comprehensive metabolic panel (05/10/2025 11:45 AM EST) Sodium 137 133 - 145 mmol/L LAB CHEMISTRY METHOD 05/10/2025 5:[address] [facility] Potassium 4.2 3.5 - 5.5 mmol/L LAB CHEMISTRY METHOD 05/10/2025 5:[address] [facility] Chloride 105 96 - 110 mmol/L LAB CHEMISTRY METHOD 05/10/2025 5:[address] [facility] CO2 28 21 - 32 mmol/L LAB CHEMISTRY METHOD 05/10/2025 5:[address] [facility] Anion Gap 4 3 - 11 LAB CHEMISTRY METHOD 05/10/2025 5:[address] [facility] Glucose 89 70 - 100 mg/dL LAB CHEMISTRY METHOD 05/10/2025 5:[address] [facility] BUN 17 5 - 25 mg/dL LAB CHEMISTRY METHOD 05/10/2025 5:[address] [facility] Creatinine 0.79 0.50 - 1.10 mg/dL LAB CHEMISTRY METHOD 05/10/2025 5:[address] [facility] eGFR 77 >=60 mL/min/1. 73m2 LAB CHEMISTRY METHOD 05/10/2025 5:[address] [facility] Comment:Calculation based on the Chronic Kidney Disease Epidemiology Collaboration (CKD-EPI) equation refit without adjustment for race. BUN/Creatinine Ratio 21.5 LAB CHEMISTRY METHOD 05/10/2025 5:[address] [facility] Calcium 11.0(H) 8.5 - 10.5 mg/dL LAB CHEMISTRY METHOD 05/10/2025 5:[address] [facility] AST (SGOT) 20 10 - 42 unit/L LAB CHEMISTRY METHOD 05/10/2025 5:[address] [facility] ALT (SGPT) 24 10 - 60 unit/L LAB CHEMISTRY METHOD 05/10/2025 5:[address] [facility] Alkaline Phosphatase 65 42 - 121 unit/L LAB CHEMISTRY METHOD 05/10/2025 5:08 PM EST [facility] Total Protein 7.4 6.0 - 8.0 g/dL LAB CHEMISTRY METHOD 05/10/2025 5:08 PM EST [facility] Albumin 4.0 3.2 - 5.0 g/dL LAB CHEMISTRY METHOD 05/10/2025 5:08 PM EST [facility] Total Bilirubin 0.8 0.0 - 1.4 mg/dL LAB CHEMISTRY METHOD 05/10/2025 5:08 PM EST [facility] Blood Venous blood specimen / Unknown Venipuncture / Unknown 05/10/2025 11:45 AM EST 05/10/2025 11:45 AM EST us Michelle MCNEIL LAB BLOOD ORDERABLES Final Re sult [facility] [address] [place] [address], * SCREENING MAMMOGRAPHY BI 2-VIEW BREAST INC [...] in conjunction with computer aided detection. Tomosynthesis as well as 2D C-View imaging were obtained. Comparison: Comparison made to multiple prior, most recent February 09, 2021, and most remote November 05, 2013. Breast composition: There are scattered areas of fibroglandular density. Right breast: 2 tissue markers from previous needle core biopsy. No suspicious masses, suspicious calcifications or other abnormalities are seen. Left breast: Postlumpectomy changes. Tissue marker from previous needle core biopsy. IMPRESSION: Impression: Bilateral breasts: Benign, no specific mammographic evidence of malignancy. Normal interval follow-up is recommended in 12 [...] 12/16/2018 4:55 PM EDT BONE DENSITY (DEXA) Lumbar Spine T-score is [...] normal bone density by WHO criteria. [facility] Department of Internal Medicine recommends using National [...] alternative screening schedule based on chiqui Pierce., [facility] July 26, 2011 for patients with [...] normal bone density by WHO criteria. [facility] Department of Internal Medicine recommendsusing National Osteoporosis [...] alternative screening schedule based on chiqui Pierce., [facility] for patients with osteopenia (based on [...] l Result * Hepatitis C Screening (04/15/2013) [facility] Hepatitis C Screening abstracted Historical Provider HEALTH MAINTENANCE Final Result from Last 3 Months or Most Recently Relevant to Health Maintenance Insurance [employer] [address] [place] [address] Advance Directives Documents on File Type Date Recorded Patient Hospice Social Worker Expl anation Advance Directives and Living Will 05/06/2025 2:57 PM Advance Directive an d Living Will DNR (Do Not Resuscitate) 05/06/2025 2:57 PM [facility]OLST 11/04/2024 * No CPR/Do Not Intubate (Latest Code Status on File) Date Activated Date Inactivated Comments 12/18/2024 10:40 AM This code sta tus was ascertained in the following way: Code status discussion: discussion with patient To update the patient's code status, place a code status order. Do not modify or discontinue any currently active code status orders. Care Teams Organic Chemistry Teacher Relationship Specialty Start Date End Date Tamra Jerry MD [address] [place] [address] PCP - General Internal Medicine 04/27/21
--- OUTSIDE RECORDS SUMMARY | 2025-06-02 16:55 | XMS_ITS | Encounter Summary ---
Author Organization [facility] Address [address] [place] [address] Care Team Providers Care Kiln Car Unloader Name Role Phone Tamra Jerry MD Primary Care Provider [phone] Encounter Details Date Type Department Care Team (Late Contact Info) Description 11/19/2024 Lab Requisition [facility] - Main Lab [address] [place] [phone] Dominique Contreras MD [address] [place] [id number] Anxiety disorder, unspecified; Essential (primary) hypertension Social History Tobacco Use Types Packs/Day Years [...] 1:10 PM EST Appointment Radiology Department - [address] [phone] 07/05/2025 2:30 PM EST Appointment [facility] Bone Density [address] [place] [address] 08/25/2025 1:20 PM EST Office Visit Endocrinology [address] [phone] Katia Mejia MD [address] [place], [place] 11/04/2025 1:00 PM EDT Office Visit [facility] [address] [phone] Tamra Jerry MD [address] [place] [address] documented as of this encounter Procedures Procedure Name Priority Date/Time Associated Diagnosis Comments BASIC METABOLIC PANEL Routine 11/20/2024 5:25 AM EDT Anxiety disorder, unspecified Essential (primary) hypertension documented in this encounter Results * Basic metabolic panel (11/20/2024 5:25 AM EDT) Sodium 143 133 - 145 mmol/L LAB CHEMISTRY METHOD 11/20/2024 9:45 AM [facility] Potassium 3.7 3.5 - 5.5 mmol/L LAB CHEMISTRY METHOD 11/20/2024 9:45 AM [facility] Chloride 107 96 - 110 mmol/L LAB CHEMISTRY METHOD 11/20/2024 9:45 AM [facility] CO2 27 21 - 32 mmol/L LAB CHEMISTRY METHOD 11/20/2024 9:45 AM [facility] Anion Gap 9 3 - 11 LAB CHEMISTRY METHOD 11/20/2024 9:45 AM [facility] Glucose 86 70 - 100 mg/dL LAB CHEMISTRY METHOD 11/20/2024 9:45 AM [facility] BUN 12 5 - 25 mg/dL LAB CHEMISTRY METHOD 11/20/2024 9:45 AM EDT [facility] Creatinine 0.54 0.50 - 1.10 mg/dL LAB CHEMISTRY METHOD 11/20/2024 9:45 AM EDT [facility] eGFR 95 >=60 mL/min/1. 73m2 LAB CHEMISTRY METHOD 11/20/2024 9:45 AM EDT [facility] Comment:Calculation based on the Chronic Kidney Disease Epidemiology Collaboration (CKD-EPI) equation refit without adjustment for race. BUN/Creatinine Ratio 22.2 LAB CHEMISTRY METHOD 11/20/2024 9:45 AM T [facility] Calcium 10.5 8.5 - 10.5 mg/dL LAB CHEMISTRY METHOD 11/20/2024 9:45 AM T [facility] Blood Venous blood specimen / Unknown Venipuncture / Unknown 11/20/2024 5:25 AM EDT 11/20/2024 9:00 AM EDT us Dominique Contreras MD LAB BLOOD ORDERABLES Final Resu lt [facility] [address] [place] [address], documented in this encounter Visit Diagnoses Diagnosis Anxiety disorder, unspecified Essential (primary) hypertension Unspecified essential hypertension documented in this encounter Additional Health Concerns Assessment Noted Time PHQ-9 Depression Total Score: 0 08/24/19 10:42 AM EST A fall risk assessment has been complete d for the patient 08/24/2024 10:42 AM EST documented as of this encounter Care Teams Kiln Car Unloader Relationship Specialty Start Date End Date Tamra Jerry MD [address] [place] [address] PCP - General Internal Medicine 04/27/21 documented as of this encounter
--- OUTSIDE RECORDS SUMMARY | 2025-06-02 16:55 | XMS_ITS | Encounter Summary ---
Author Organization [facility] Address [address] [place] [address] Care Team Providers Care Weight Yardage Checker Name Role Phone Tamra Jerry MD Primary Care Provider [phone] Encounter Details Date Type Department Care Team (Late Contact Info) Description 12/08/2024 Lab Requisition [facility] - Main Lab [address] [place] [phone] Dominique Contreras MD [address] [place] [id number] Primary osteoarthritis, left wrist; Anxiety disorder, unspecified; Essential (primary) hypertension Social [...] 1:10 PM EST Appointment Radiology Department - [address] [phone] 07/05/2025 2:30 PM EST Appointment [facility] Bone Density [address] [place] [address] 08/25/2025 1:20 PM EST Office Visit Endocrinology [address] [phone] Katia Mejia MD [address] [place], [place] 11/04/2025 1:00 PM EDT Office Visit Adult Medicine [address] [phone] Tamra Jerry MD [address] [place] [address] documented as of this encounter Procedures Procedure Name Priority Date/Time Associated Diagnosis Comments COMPLETE BLOOD COUNT Routine 12/08/2024 5:28 AM EDT Primary osteoarthritis, left wrist Anxiety disorder, unspecified Essential (primary) hypertension BASIC METABOLIC PANEL Routine 12/08/2024 5:28 AM EDT Primary osteoarthritis, left wrist Anxiety disorder, unspecified Essential (primary) hypertension documented in this encounter Results * (ABNORMAL) Basic metabolic panel (12/08/2024 5:28 AM EDT) [facility] Sodium 139 133 - 145 mmol/L LAB CHEMISTRY METHOD 12/08/2024 8:52 AM [facility] Potassium 3.1(L) 3.5 - 5.5 mmol/L LAB CHEMISTRY METHOD 12/08/2024 8:52 AM [facility] Chloride 104 96 - 110 mmol/L LAB CHEMISTRY METHOD 12/08/2024 8:52 AM [facility] CO2 28 21 - 32 mmol/L LAB CHEMISTRY METHOD 12/08/2024 8:52 AM [facility] Anion Gap 7 3 - 11 LAB CHEMISTRY METHOD 12/08/2024 8:52 AM [facility] Glucose 83 70 - 100 mg/dL LAB CHEMISTRY METHOD 12/08/2024 8:52 AM EDT [facility] BUN 10 5 - 25 mg/dL LAB CHEMISTRY METHOD 12/08/2024 8:52 AM EDT [facility] Creatinine 0.49(L) 0.50 - 1.10 mg/dL LAB CHEMISTRY METHOD 12/08/2024 8:52 AM EDT [facility] eGFR 97 >=60 mL/min/1. 73m2 LAB CHEMISTRY METHOD 12/08/2024 8:52 AM EDT [facility] Comment:Calculation based on the Chronic Kidney Disease Epidemiology Collaboration (CKD-EPI) equation refit without adjustment for race. BUN/Creatinine Ratio 20.4 LAB CHEMISTRY METHOD 12/08/2024 8:52 AM EDT [facility] Calcium 10.6(H) 8.5 - 10.5 mg/dL LAB CHEMISTRY METHOD 12/08/2024 8:52 AM EDT [facility] Blood Venous blood specimen / Unknown Venipuncture / Unknown 12/08/2024 5:28 AM EDT 12/08/2024 7:45 AM EDT us Dominique Contreras MD LAB BLOOD ORDERABLES Final Resu lt [facility] [address] [place] [address], * (ABNORMAL) Complete blood count (12/08/2024 5:28 AM EDT) WBC 6.5 4.8 - 10.8 K/mcL LAB HEMETOLOGY METHOD 12/08/2024 8:50 AM EDT [facility] RBC 4.20 3.80 - 4.80 M/mcL LAB HEMETOLOGY METHOD 12/08/2024 8:50 AM EDT [facility] Hemoglobin 13.5 11.5 - 16.0 g/dL LAB HEMETOLOGY METHOD 12/08/2024 8:50 AM EDT [facility] Hematocrit 40.9 35.0 - 47.0 % LAB HEMETOLOGY METHOD 12/08/2024 8:50 AM EDT [facility] MCV 96.9 79.0 - 98.0 FL LAB HEMETOLOGY METHOD 12/08/2024 8:50 AM EDT [facility] MCH 32.0 27.0 - 32.0 pcg LAB HEMETOLOGY METHOD 12/08/2024 8:50 AM EDT [facility] MCHC 33.0 32.0 - 37.0 g/dL LAB HEMETOLOGY METHOD 12/08/2024 8:50 AM EDT [facility] RDW 13.5 11.0 - 15.0 % LAB HEMETOLOGY METHOD 12/08/2024 8:50 AM EDT [facility] Platelets 187 130 - 400 K/mcL LAB HEMETOLOGY METHOD 12/08/2024 8:50 AM EDT [facility] MPV 11.7(H) 7.0 - 11.0 FL LAB HEMETOLOGY METHOD 12/08/2024 8:50 AM EDT [facility] NRBC 0.0 <1.0 % LAB HEMETOLOGY METHOD 12/08/2024 8:50 AM EDT [facility] NRBC Absolute 0.00 <0.10 K/mcL LAB HEMETOLOGY METHOD 12/08/2024 8:50 AM EDT [facility] Blood Venous blood specimen / Unknown Venipuncture / Unknown 12/08/2024 5:28 AM EDT 12/08/2024 7:45 AM EDT us Dominique Contreras MD LAB BLOOD ORDERABLES Final Resu lt [facility] [address] [place] [address], documented in this encounter Visit Diagnoses Diagnosis Primary osteoarthritis, left wrist Anxiety disorder, unspecified Essential (primary) hypertension Unspecified essential hypertension documented in this encounter Additional Health Concerns Assessment Noted Time PHQ-9 Depression Total Score: 0 08/24/19 25 10:42 AM EST A fall risk assessment has been complete d for the patient 08/24/2024 10:42 AM EST documented as of this encounter Care Teams Weight Yardage Checker Relationship Specialty Start Date End Date Tamra Jerry MD [address] [place] [address] PCP - General Internal Medicine 04/27/21 documented as of this encounter
--- OUTSIDE RECORDS SUMMARY | 2025-06-02 16:55 | XMS_ITS | Clinical Summary ---
Author Organization [facility] Address [address] [place] [address] Care Team Providers Care Grain Buyer Name Role Phone Mignon Lowery MD Primary Care Provider [phone] Social History Tobacco Use Types Packs/Day Years [...] 1-dose 75+ series) 2022 Influenza Vaccine (#1) 2025 8, 04/23/2017, 04/20/2015, Additional history exists Pneumococcal Vaccine Completed 03/03/2020, 04/25/20 18 Hepatitis B Vaccines Aged Out No long er eligible based on patient's age to complete this topic RSV Ped < 20 months Aged Out No longe r eligible based on patient's age to complete this topic Care Teams Grain Buyer Relationship Specialty Start Date End Date Mignon Lowery MD PCP - General Internal Medicine 08/25/19
== END 2025-06-02 14:21 | disposition home or self-care (01) ==
LOC: HO.HSM 13:50
PROVIDERS: PCP Internal Medicine; Visit Provider Psychiatry & Neurology Neurology
DX: G30.1 Alzheimer's disease with late onset (principal); F02.A3 Dementia in other diseases classified elsewhere, mild, with mood disturbance
CPT/HCPCS: 99213

== ENCOUNTER → 2025-06-02 13:50 | Outpatient (BNVA) | payer MEDICARE, SELFPAY | PROVIDERS: PCP Internal Medicine; Visit Provider Psychiatry & Neurology Neurology | DX: G30.1 Alzheimer's disease with late onset (principal); F02.A3 Dementia in other diseases classified elsewhere, mild, with mood disturbance; Z79.899 Other long term (current) drug therapy | CPT/HCPCS: 99212 ==